=== PATIENT | male | born 1965 | race Caucasian/White ===

== ENCOUNTER 2019-04-29 07:43 | Observation (INO) | payer MEDICAID, SELFPAY ==
[2019-04-29] VITALS (10 sets, daily range): BP systolic 108–143; BP diastolic 73–90; PULSE 49–89; RESP 12–18; TEMP 37.1–37.7; O2SAT 99–100; BMI 22.2
--- NOTE | ~2019-04-29 | XR_ITS ---
XR chest 2V DATE: 04/29/2019 08:20 INDICATION: Fever, malaise TECHNIQUE: 2 views COMPARISON: 02/25/2018 two-view chest FINDINGS: Normal heart size. No hilar or mediastinal enlargement. Mild bilateral hyperinflation. No pulmonary infiltrate or consolidation, pleural effusion or pulmonar y vascular congestion or pneumothorax. Mild levoscoliosis and degenerative spurring of the thoracic spine. Mild degenerative spurring at the acromioclavicular joints. IMPRESSION: No active cardiopulmonary disease or significant change since 02/25/2018 Reviewed, dictated and finalized at location B. MATIC COIN MACHINE MECHANIC IMPRESSION: No active cardiopulmonary disease or significant change since 2017
--- NOTE | 2019-04-29 07:42 | ECG_ITS ---
Measurements Intervals [place] Rate: 76 P: 69 MO: 163 QRS: 72 QRSD: 100 T: 69 QT: 378 QTc: 426 Interpretive Statements SINUS RHYTHM NORMAL ECG Electronically Signed On 04-29-2019 11:09:56 HORTICULTURALIST by Felipe Newell D.O.
--- NOTE | 2019-04-29 08:10 | ED.CHESTPAIN ---
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 Pt states that his CP was non-radiating and it was alleviated when he held his chest and took deep breaths for 5-6 minutes. He states that he thought it was acid reflux but it did not feel, and then he started having anxiety about his pain. Pt denies SOB. Pt was given a Nitro patch and ASA 325mg, by EMS that also alleviated his pain. He has a H/o a CVA in 2006 and he smokes 1/2PPD. complaint: chest pain Onset (ago): day(s) (this morning) Timing of current episode: now resolved Onset: during exertion Pain location: other (mid chest) Relieving factors: nitroglycerin and other (ASA) Treatment prior to arrival: aspirin and nitroglycerin Related Data Home Medications Medication Instructions Recorded Confirmed No Home Medications 03/28/19 03/28/19 Allergies Allergy/AdvReac Type Severity Reaction Status Date / Time steroids AdvReac Intermediate Sweating Uncoded 04/29/19 07:47 Review of Systems Review of Systems: All systems reviewed & are unremarkable except as noted in HPI and below Cardiovascular: Cardiovascular: Reports chest pain Respiratory: Respiratory: Denies dyspnea Psychiatric: Psychiatric: Reports anxiety [facility] Past Medical History Medical History (Updated 04/29/19 @ 09:57 by Andrew Cornejo DO) Arthritis CVA (cerebral vascular accident) Surgical History Surgical History (Updated 03/28/19 @ 17:55 by Hannah Joshi PA-C) History of tonsillectomy Social History Social History (Updated 04/29/19 @ 09:17 by Nathen Melo) Smoking packs per day: 0.5 Smoking cigarettes per day: 10.0 Smoking status: Current every day smoker Exam Narrative: Exam Narrative: APPEARANCE: No acute distress, nontoxic, resting in bed EYES: EOMI HEENT: Normocephalic, atraumatic, OMM RESPIRATORY: No respiratory distress Clear to auscultation bilaterally with no rhonchi wheezing or rales. CARDIOVASCULAR: Regular rate and rhythm without murmurs rubs or gallops. ABDOMINAL: Soft, nontender, nondistended, no rebound or guarding MUSCULOSKELETAl: Moves all extremities. No clubbing, cyanosis or edema. NEURO: Awake and alert. Following commands, speech normal, no focal deficits SKIN:: Warm, dry. No rashes lesions or abrasions PSYCHIATRIC: Normal affect/mood, Course Course Emergency Course: Discussed with patient and family results of workup and diagnosis. Discussed need for admission. Patient and family understand and agree to current treatment plan Consultations Consultation #1: Discussed case with Dr. Brunner, the wireless telegrapher. Accepted admission to the [facility]. Date: 04/29/19 Time: 09:00 Vital Signs Vital signs: Vital Signs Temperature 98.7 F 04/29/19 07:42 Pulse Rate 75 04/29/19 07:42 Respiratory Rate 16 04/29/19 07:42 Blood Pressure 113/86 04/29/19 07:42 Pulse Oximetry 100 04/29/19 07:42 Temperature 98.7 F 04/29/19 07:42 Pulse Rate 66 04/29/19 09:30 Respiratory Rate 18 04/29/19 09:30 Blood Pressure 114/86 04/29/19 09:30 Pulse Oximetry 99 04/29/19 09:30 MDM - Chest Pain Lab Data Result diagrams: 04/29/19 08:00 04/29/19 08:00 Labs: Lab Results 04/29/19 04/29/19 04/29/19 Range/Units 08:00 08:00 08:00 WBC 4.8 (4.5-10.0) K/mm3 RBC 4.32 L (4.6-6.20) M/mm3 Hgb 13.6 L (14.0-18.0) g/dL Hct 40.9 L (42.0-52.0) % MCV 94.7 (80-100) fl MCH 31.5 (26-34) pg MCHC 33.3 (32-36) g/dl RDW 13.1 (11.5-14.5) % Plt Count 189 (150-375) k/mm3 MPV 9.5 (7.4-10.4) fl Immature Gran % (Auto) 0.2 (0-0.5) % Neut % (Auto) 59.3 (45.5-73.1) % Lymph
[2019-04-29 08:14] LABS: Basophils Percent Auto 0.4 % (0.2-1.2); Eosinophils Absolute Auto 0.1 K/mm3 (0-0.3); Eosinophils Percent Auto 1.9 % (0-4.4); Hematocrit 40.9 % (42.0-52.0); Hemoglobin 13.6 g/dL (14.0-18.0); Immature Granulocyte Absolute 0.01 K/mm3 (0.00-0.031); Immature Granulocyte Percent A 0.2 % (0-0.5); Lymphocytes Absolute Auto 1.47 K/mm3 (0.9-3.2); Lymphocytes Percent Auto 30.5 % (18.3-44.2); Mean Corpuscular HGB Conc 33.3 g/dl (32-36); Mean Corpuscular Hemoglobin 31.5 pg (26-34); Mean Corpuscular Volume 94.7 fl (80-100); Mean Platelet Volume 9.5 fl (7.4-10.4); Monocytes Absolute Auto 0.4 K/mm3 (0.1-0.6); Monocytes Percent Auto 7.7 % (2.6-8.5); Neutrophils Absolute Auto 2.9 K/mm3 (1.3-6.7); Neutrophils Percent Auto 59.3 % (45.5-73.1); Platelet Count Result 189 k/mm3 (150-375); Red Blood Count 4.32 M/mm3 (4.6-6.20); Red Cell Distribution Width 13.1 % (11.5-14.5); White Blood Count 4.8 K/mm3 (4.5-10.0)
[2019-04-29 08:20] LABS: INR 0.9
[2019-04-29 08:21] LABS: Partial Thromboplastin Time 27.8 SECONDS (22.3-36.8)
[2019-04-29 08:27] LABS: Alanine Aminotransferase 10 U/L (4-50); Albumin Level 3.9 g/dL (3.5-5.1); Alkaline Phosphatase 56 U/L (38-126); Aspartate Amino Transferase 16 U/L (17-59); Bilirubin,Total 0.1 mg/dL (0.2-1.3); Blood Urea Nitrogen 15 mg/dL (9-20); Calcium 9.1 mg/dL (8.4-10.2); Carbon Dioxide 26 mmol/L (22-30); Chloride 103 mmol/L (98-107); Estimated CRCL calculation 84 ml/min; Estimated Glomerular Filt Rate > 60; Glucose 100 mg/dL (75-110); Lipase 102 U/L (23-300); Potassium 4.1 mmol/L (3.4-5.0); Sodium 140 mmol/L (137-145)
[2019-04-29 08:38] LABS: Troponin I < 0.012 ng/mL (0.000-0.034)
[2019-04-29 11:38] LABS: Cholesterol 142 mg/dL (0-200); HDL Direct 44 mg/dL; Triglycerides 100 mg/dL (<150)
[2019-04-29 11:49] LABS: LDL Cholesterol Direct 97 mg/dL
[2019-04-29 11:50] LABS: Troponin I < 0.012 ng/mL (0.000-0.034)
--- NOTE | 2019-04-29 12:02 | ECG_ITS ---
Measurements Intervals [place] Rate: 49 P: 61 [place]: 164 QRS: 64 QRSD: 98 T: 63 QT: 435 QTc: 396 Interpretive Statements SINUS BRADYCARDIA ABNORMAL ECG Electronically Signed On 04-29-2019 11:54:41 PLATEN DRIER OPERATOR by Felipe Newell D.O.
--- NOTE | 2019-04-29 12:23 | PC.NURSE ---
DR. CHILDERS HERE TO SEE PT. CONDITION UPDATE GIVEN. NOTIFIED TROPONINS (-) X 2 AND EKG'S SHOWN.
--- NOTE | 2019-04-29 12:49 | PM.SD ---
Same Day Admit/Disch: HPI History of Present Illness Chief complaint: Chest pain Narrative: Juan Young is a 53 year old male with past medical history of GERD who presented today to [facility] with complaint for episodes of chest discomfort and anxiety. According the patient he worked today morning and then experienced one episode of sharp chest discomfort in 1 spot on his chest on the left side. Stated that he panicked and called EMS to go to the hospital. Stated that his pain was present for few minutes and resolved spontaneously. Patient claims that he never had similar symptoms before. Patient stated she was diagnosed with GERD before and takes some proton pump inhibitor for that reason. Pt denies any cardiac problems. States that in 2006 had stroke and which affected his speech. At that time he was polysubstance abuser. He underwent evaluation at [facility] including stress test which per pt was negative. Afterwards patient quit all his drugs and feels better. Patient was seen and examined, chart was reviewed, case was discussed with patient's nurse PMFSH Past Medical History Medical History (Updated 04/29/19 @ 15:50 by Derrek Rivera MD) Arthritis CVA (cerebral vascular accident) Surgical History Surgical History (Updated 03/28/19 @ 17:55 by Hannah Joshi PA-C) History of tonsillectomy Social History Social History (Updated 04/29/19 @ 09:17 by Nathen Melo) Smoking packs per day: 0.5 Smoking cigarettes per day: 10.0 Years smoked: 35 Smoking pack-years: 17.50 Smoking status: Current every day smoker Tobacco type: cigarettes Second hand tobacco smoke exposure: Yes Additional smoking assessment comments: REPORTS SMOKING MARIJUANA DAILY. Gender identity (if verbalized by the patient): Male Same Day Admit/Disch: Med Pre-admit Medications Home Medications Medication Instructions Recorded Confirmed Type No Home Medications 03/28/19 03/28/19 History Exam Const: General: alert and awake; No acute distress HENMT: Head: normal to inspection and atraumatic Ears: hearing grossly normal bilaterally Face and sinus: normal facial exam Eyes: General: appearance normal, both eyes and all related structures Pupils: Equal, round and reactive pupils present EOM: EOMs intact bilaterally Neck: Neck: normal visual inspection and no JVD Chest: Chest palpation & inspection: normal inspection of the chest Resp: Effort & Inspection: normal respiratory effort and no respiratory distress Auscultation: clear to auscultation bilaterally Cardio: Jugular venous distension: no JVD Rate: regular rate Heart sounds: S1 normal heart sound present, S2 normal heart sound present and no murmurs GI: Inspection: normal to inspection GI Palp: Yes Soft to palpation, No Tenderness to palpation present (GI) and Yes No hepatosplenomegaly present Auscultation: normal bowel sounds Skin: General skin exam: normal color Neuro: Cranial nerves: Yes Equal, round and reactive pupils present Extrem: General: normal to inspection and no clubbing, cyanosis or edema DS: Data Data Completed and Pending Labs on day of discharge: Labs from last 24 hours 04/29/19 04/29/19 04/29/19 11:13 11:13 08:00 WBC RBC Hgb Hct MCV MCH MCHC RDW Plt Count MPV Immature Gran % (Auto) Neut % (Auto) Lymph % (Auto) [place] % (Auto) Eos % (Auto) Baso % (Auto) Lymph # (Auto) [place] # (Auto) Eos # (Auto) Baso # (Auto) Abs Immat Gran (auto) Absolute Neuts (auto) Absolute Nucleated RBC Nucleated RBC % PT INR APTT Sodium 140 Potassium 4.1 Chloride 103 Carbon Dioxide 26 BUN 15 Creatinine 0.70 Estim Creat Clear Calc 84 Estimated GFR > 60 Glucose 100 Calcium 9.1 Total Bilirubin 0.1 L Direct Bilirubin 0.0 AST 16 L ALT 10 Alkaline Phosphatase 56 Troponin I < 0.012 < 0.0
--- NOTE | 2019-04-29 12:59 | ECHO_ITS ---
Patient Info Name: Juan Young Age: 53 years : 1965 Gender: Male Ht: 63 in Wt: 125 lbs BSA: 1.59 m2 HR: 50 bpm BP: 129 / 80 mmHg Technical Quality: Good Exam Date: 04/29/2019 1:29 PM Exam Location: [facility] Patient Status: Inpatient Admit Date: 04/29/2019 Staff Ordering Physician: Derrek Rivera MD Breeder Service Technician: Roxana Carreno RDCS Attending Provider: Huber Brunner MD Referring Physician: Nicole MCGUIRE; Exam Type: CA echo doppler color flow Study Info Indications R07.89 - Other chest pain Complete two-dimensional, color flow and Doppler transthoracic echocardiogram is performed. Summary 1. Left ventricular chamber dimension is mildly enlarged. 2. There is mild aortic valve sclerosis. 3. The mitral valve has thickened leaflets. 4. Left ventricular ejection fraction is normal, estimated at 50-55%%. 5. There is trace mitral valve regurgitation. Left Ventricle Left ventricular chamber dimension is mildly enlarged. Left ventricular ejection fraction is normal, estimated at 50-55%%. Right Ventricle Right ventricle Empty are normal. Left Atria Left atrial chamber dimension is normal. Right Atria Right atrial chamber dimension is normal. Aortic Valve The aortic valve is trileaflet. There is mild aortic valve sclerosis. Pulmonic Valve Pulmonary valve is not well visualized. Mitral Valve The mitral valve has thickened leaflets. There is trace mitral valve regurgitation. Tricuspid Valve The tricuspid valve is not well visualized. Pericardium/Pleural Pericardium is normal in appearance with no evidence for significant pericardial effusion. Left Ventricular Outflow Tract Name Value Normal LVOT 2D LVOT Diameter 2.0 cm LVOT Doppler LVOT Peak Gradient 2 mmHg LVOT Mean Gradient 1 mmHg LVOT VTI 17 cm LVOT VTI/AV VTI Ratio 0.8 LVOT Stroke Volume 57 ml LVOT CO 3.1 l/min LVOT CI 1.9 l/min/m2 Pulmonic Valve Name Value Normal RVOT Doppler RVOT Peak Gradient 1 mmHg PV Doppler PV Peak Gradient 2 mmHg Mitral Valve Name Value Normal MV Doppler MV Decel [place] 401 cm/s2 MV PHT 55 ms MV Area (PHT) 4.0 cm2 4.0-5.0 MV Diastolic Function -
--- NOTE | 2019-04-29 13:35 | PC.NURSE ---
ECHO IN PROGRESS AT BEDSIDE. PT. HAD REFUSED STRESS ECHO; ORDER FOR ECHO PER DR. CHILDERS INSTEAD.
--- NOTE | 2019-04-29 15:02 | ECG_ITS ---
Measurements Intervals [place] Rate: 52 P: 67 [place]: 168 QRS: 65 QRSD: 100 T: 63 QT: 425 QTc: 395 Interpretive Statements SINUS BRADYCARDIA WITH SINUS ARRHYTHMIA BORDERLINE ECG Electronically Signed On 04-29-2019 15:17:44 SENIOR QUALITY CONTROL INSPECTOR by Felipe Newell D.O.
[2019-04-29 15:43] LABS: Troponin I < 0.012 ng/mL (0.000-0.034)
--- NOTE | 2019-04-29 15:45 | PC.NURSE ---
CALL RECEIVED FROM DR. CHILDERS. STATES HE HAS REVIEWED ECHO AND HAS BEEN NOTIFIED OF 3RD TROPONIN RESULT. OK TO DISCHARGE PT. HOME.
--- NOTE | 2019-04-29 16:50 | PC.NURSE ---
DISCHARGE INSTRUCTIONS REVIEWED W/ PT. ALL QUESTIONS ANSWERED. COPY GIVEN. DISCHARGED HOME, OUT AMBULATORY W/ AT SIDE TO PRIVATE CAR WITH ALL PERSONAL BELONGINGS AND DISCHARGE INSTRUCTIONS. DENIES PAIN OR SOB.
--- NOTE | 2019-04-29 19:22 | ADMGEN ---
0950: This patient, Juan Young, was admitted to [facility]. Patient/family oriented to hospital policies and general routines including ID bracelet, bed and alarms, visiting hours, pain management, procedures, bathroom and other care routines, personal items, smoking policy, room service/diet, and visiting hours. Valuables list has been completed. DENIES CP OR SOB ON ARRIVAL. Information on how to activate the Rapid Response Team has been discussed. Patient/Family are encouraged to report perceived risks to care and to ask questions if they do not understand what they are told or what they should do.
== END 2019-04-29 16:50 | disposition home or self-care (01) ==
LOC: ANHED 09:08 → ANHCPC 09:57
PROVIDERS: Admitting Provider Specialist; Emergency Provider Emergency Medicine; Visit Provider Internal Medicine Cardiovascular Disease
DX: R07.89 Other chest pain (principal); K21.9 Gastro-esophageal reflux disease without esophagitis; F17.210 Nicotine dependence, cigarettes, uncomplicated; M19.90 Unspecified osteoarthritis, unspecified site; Z86.73 Personal history of transient ischemic attack (TIA), and cerebral infarction without residual deficits
CPT/HCPCS: 36415; 71046; 80048; 80061; 80076; 83690; 84484; 85025; 85610; 85730; 93005; 93306; 99285; G0378; G0379

== ENCOUNTER 2019-08-24 12:35 | Emergency (ER) | payer OTHER, SELFPAY ==
--- NOTE | ~2019-08-24 | CT_ITS ---
EXAMINATION: CT lumbar spine wo con DATE: 08/24/2019 14:24 INDICATION: Low back pain. Bilateral sciatica. TECHNIQUE: Computed tomography (CT) of the lumbar spine was performed without intravenous contrast. A utomated exposure control and iterative reconstruction technique were employed. The dose-length produ ct was 218.21 mGy-cm. COMPARISON: None FINDINGS: There is 5 degrees dextrocurvature of thoracolumbar spine. Vertebral body heights are jessica l. There is mildly decreased disc height at L4-L5. The following disc levels are specifically discuss ed: L1-L2: The disc does not extend beyond the endplate margin. There is mild bilateral facet joint osteo arthritis. There is no neural foraminal stenosis. There is no central canal stenosis. L2-L3: The disc does not extend beyond the endplate margin. There is moderate bilateral facet joint o steoarthritis. There is no neural foraminal stenosis. There is no central canal stenosis. L3-L4: The disc does not extend beyond the endplate margin. There is severe right and mild left facet joint osteoarthritis. There is no neural foraminal stenosis. There is no central canal stenosis. L4-L5: The disc is bulging. There is mild right and severe left facet joint osteoarthritis. There is mild bilateral neural foraminal stenosis. There is mild central canal stenosis. L5-S1: The disc is bulging. There is severe bilateral facet joint osteoarthritis. There is mild bilat eral neural foraminal stenosis. There is mild central canal stenosis. IMPRESSION: 1. Mild lumbar spondylosis. Reviewed, dictated and finalized at location A. IMPRESSION: 1. Mild lumbar spondylosis.
[2019-08-24 12:47] VITALS: BP 146/94; PULSE 109; RESP 18; TEMP 37; O2SAT 99
--- NOTE | 2019-08-24 14:10 | ED.BACK ---
HPI - Back Pain/Injury General Chief Complaint: Back Pain/Injury Stated Complaint: chronic back pain Time Seen by Provider: 08/24/19 13:22 History of Present Illness HPI Narrative: Patient took off work to come in to see what we could do about his back pain. 4 years ago with surgery he had a fall and had acute back pain at that time. She has had sciatica since. 4 weeks ago he had acute on chronic pain after doing yard work. He was told he pulled a muscle. An x-ray was done at [facility], and he was told he should get an MRI with a private doctor. He works full-time at [employer] up to 50 hours a week. Pain is worse with standing and sitting. Currently the pain is 6 out of 10. He has no urinary or bowel problems. The only pain medicine he tried was in ibuprofen 600 mg which improved the pain. He was told not to take ibuprofen because of a stomach scar. He has been trying to find a primary care physician, in this area, but he says they are all decline, because her not taking new patients due to COVID. He only goes to urgent cares at the ER. He now has Medicaid health insurance. He smokes a pack a day, and marijuana. He no longer drinks because it caused problems in the past. MD elicited complaint: back pain Pertinent past history: prior back pain and recent trauma Onset (ago): year(s) Timing: constant Severity: moderate Similar Symptoms Previously: Yes Location: lumbar spine Radiation: left leg below the knee and right leg below the knee Exacerbating factors: sitting upright Relieving factors: none Associated symptoms: difficulty walking Work related injury: No Related Data Allergies Allergy/AdvReac Type Severity Reaction Status Date / Time steroids AdvReac Intermediate Sweating Uncoded 08/24/19 12:56 Review of Systems Review of Systems: Narrative: CONSTITUTIONAL: Denies fever, chills, or sweats. EYES: Denies visual changes, redness, or discharge. ENT: Denies rhinorrhea, congestion, sore throat, or otalgia. CARDIOVASCULAR: Denies chest pain, palpitations, or edema. RESPIRATORY: Denies cough or dyspnea. GASTROINTESTINAL: Denies abdominal pain, nausea, vomiting, or diarrhea. GENITOURINARY: Denies dysuria or hematuria. SKIN: Denies rash or itching. MUSCULOSKELETAL: Denies joint pain, or myalgia. NEUROLOGIC: Denies headache, numbness, or weakness. PSYCHIATRIC: Denies anxiety or depression. All systems reviewed & are unremarkable except as noted in HPI and below PMFSH Past Medical History Medical History (Updated 08/24/19 @ 14:16 by Megha Tom MD) Arthritis CVA (cerebral vascular accident) Surgical History Surgical History History of tonsillectomy Social History Social History (Updated 08/24/19 @ 14:14 by Megha Tom MD) Smoking packs per day: 0.5 Smoking cigarettes per day: 10.0 Years smoked: 35 Smoking pack-years: 17.50 Smoking status: Current every day smoker Tobacco type: cigarettes Second hand tobacco smoke exposure: Yes Additional smoking assessment comments: REPORTS SMOKING MARIJUANA DAILY. Alcohol intake: former Substance use: current Substance use type: marijuana Gender identity (if verbalized by the patient): Male Exam Narrative: Exam Narrative: GENERAL: Well-appearing, well-nourished, and in no acute distress. Sitting, tanned, a lot of facial wrinkles. HEAD: Normocephalic, atraumatic. EYES: PERRLA and EOMI. ENT: Nares clear, no rhinorrhea or epistaxis. Mucous membranes moist. NECK: Supple. CHEST: Clear to auscultation. No respiratory distress. HEART: Regular rate and rhythm. No murmur heard. Normal peripheral pulses. ABDOMEN: Soft, nontender, nondistended, normal active bowel sounds. EXTREMITIES: Normal range of motion. No edema. SKIN: Warm, dry, no rash. NEURO: No focal deficits. Alert and oriented x3. PSYCH: Normal mood and affect. Course Reevaluation(s) Reevaluation #1: The social media community manager here in t
[2019-08-24] MEDS: TRAMADOL HCL 50 MG TABLET PO (14:38)
[2019-08-24 15:03] VITALS: BP 126/77; PULSE 72; RESP 16; O2SAT 100
[2019-08-24 15:45] LABS: Basophils Percent Auto 0.7 % (0.2-1.2); Eosinophils Absolute Auto 0.1 K/mm3 (0-0.3); Eosinophils Percent Auto 1.3 % (0-4.4); Hematocrit 44.7 % (42.0-52.0); Immature Granulocyte Absolute 0.01 K/mm3 (0.00-0.031); Immature Granulocyte Percent A 0.2 % (0-0.5); Lymphocytes Absolute Auto 1.56 K/mm3 (0.9-3.2); Lymphocytes Percent Auto 29.2 % (18.3-44.2); Mean Corpuscular HGB Conc 33.6 g/dl (32-36); Mean Corpuscular Hemoglobin 31.7 pg (26-34); Mean Corpuscular Volume 94.5 fl (80-100); Mean Platelet Volume 9.1 fl (7.4-10.4); Monocytes Absolute Auto 0.4 K/mm3 (0.1-0.6); Monocytes Percent Auto 6.6 % (2.6-8.5); Neutrophils Absolute Auto 3.3 K/mm3 (1.3-6.7); Platelet Count Result 208 k/mm3 (150-375); Red Blood Count 4.73 M/mm3 (4.6-6.20); Red Cell Distribution Width 13.2 % (11.5-14.5); White Blood Count 5.3 K/mm3 (4.5-10.0)
[2019-08-24 16:00] LABS: Alanine Aminotransferase 13 U/L (4-50); Albumin Level 4.4 g/dL (3.5-5.1); Alkaline Phosphatase 52 U/L (38-126); Aspartate Amino Transferase 20 U/L (17-59); Bilirubin,Total 0.6 mg/dL (0.2-1.3); Blood Urea Nitrogen 18 mg/dL (9-20); Calcium 9.1 mg/dL (8.4-10.2); Carbon Dioxide 31 mmol/L (22-30); Chloride 107 mmol/L (98-107); Estimated CRCL calculation 79 ml/min; Estimated Glomerular Filt Rate > 60; Glucose 95 mg/dL (75-110); Potassium 4.3 mmol/L (3.4-5.0); Sodium 139 mmol/L (137-145)
== END 2019-08-24 17:41 | disposition home or self-care (01) ==
PROVIDERS: Emergency Provider Emergency Medicine
DX: M54.41 Lumbago with sciatica, right side (principal); M54.42 Lumbago with sciatica, left side; R07.89 Other chest pain; M19.90 Unspecified osteoarthritis, unspecified site; F17.210 Nicotine dependence, cigarettes, uncomplicated; M47.816 Spondylosis without myelopathy or radiculopathy, lumbar region; Z86.73 Personal history of transient ischemic attack (TIA), and cerebral infarction without residual deficits
CPT/HCPCS: 36415; 72131; 80053; 85025; 99284; A9270

== ENCOUNTER 2019-11-09 14:05 | Emergency (ER) | payer OTHER, SELFPAY ==
[2019-11-09 14:18] VITALS: BP 126/82; PULSE 91; RESP 18; TEMP 36.1; O2SAT 100
--- NOTE | 2019-11-09 14:33 | ED.EXTPRO ---
HPI - Extremity Problem General Chief complaint: Skin/Abscess/Foreign Body Stated complaint: Back Pain Time Seen by Provider: 11/09/19 14:21 Source: patient and RN notes reviewed Mode of arrival: ambulatory Limitations: no limitations History of Present Illness HPI Narrative: Patient presents today complaining of painful calluses to the bottom of both feet. This is a chronic issue for patient. States he is on his feet frequently when he works at [employer] and states he wanted to come in to see if we could give him suggestions on foot care. He has been soaking his feet a few times a week. Symptoms are not improving. States he knows he has amount of chronic issues with his feet including overgrown toenails and toe fungus. MD Complaint: extremity pain Related Data Home Medications Medication Instructions Recorded Confirmed quetiapine 11/09/19 Allergies Allergy/AdvReac Type Severity Reaction Status Date / Time steroids AdvReac Intermediate Sweating Uncoded 08/24/19 12:56 Review of Systems Review of Systems: Narrative: CONSTITUTIONAL: Denies body aches, fever, chills, or sweats. EYES: Denies visual changes, redness, or discharge. ENT: Denies rhinorrhea, congestion, sore throat, or otalgia. CARDIOVASCULAR: Denies chest pain, palpitations, or edema. RESPIRATORY: Denies cough or dyspnea. GASTROINTESTINAL: Denies abdominal pain, nausea, vomiting, or diarrhea. GENITOURINARY: Denies dysuria or hematuria. SKIN: Denies rash, itching, or wounds. +Painful calluses MUSCULOSKELETAL: Denies back pain, joint pain, or myalgia. NEUROLOGIC: Denies headache, numbness, tingling, or weakness. PSYCH: Denies depression or anxiety. [facility] Past Medical History Medical History (Updated 11/09/19 @ 14:40 by Maria T Lamas, [facility], ) Arthritis Bipolar disorder CVA (cerebral vascular accident) Schizophrenia Surgical History Surgical History History of tonsillectomy Social History Social History (Updated 08/24/19 @ 14:14 by Megha Tom MD) Smoking packs per day: 0.5 Smoking cigarettes per day: 10.0 Years smoked: 35 Smoking pack-years: 17.50 Smoking status: Current every day smoker Tobacco type: cigarettes Second hand tobacco smoke exposure: Yes Additional smoking assessment comments: REPORTS SMOKING MARIJUANA DAILY. Alcohol intake: former Substance use: current Substance use type: marijuana Gender identity (if verbalized by the patient): Male Comments At time of signature, I have reviewed and agree with nursing past medical, surgical, social and family history unless otherwise noted. Please see nursing chart for further information. There is no relevant family history pertinent to the presenting complaint Exam Narrative: Exam Narrative: GENERAL: Well-appearing, well-nourished, and in no acute distress. HEAD: Normocephalic, atraumatic. EYES: EOMI. No redness or drainage. Conjunctivae normal. ENT: Mucous membranes pink and moist. NECK: Normal AROM. CHEST: No respiratory distress. EXTREMITIES: Widespread, severe onychomycoses in all toes bilaterally. Some toenails are growing underneath the toe after they have folded over the tip. Patient has large firm calluses running on the plantar aspect of each foot at the base of the toes. He also has small, very firm round calluses to the ball of the foot that protrude from the skin. Skin in between the toes is moist and macerated. No obvious cellulitis or erythema noted. SKIN: Warm, dry, no rash. Capillary refill normal. Normal skin turgor. NEURO: No focal deficits. Alert and oriented x3. Gait steady. PSYCH: Normal affect. No signs of depression or anxiety. Course Vital Signs Vital signs: Vital Signs Temperature 97.0 F L 11/09/19 14:18 Pulse Rate 91 11/09/19 14:18 Respiratory Rate 18 11/09/19 14:18 Blood Pressure 126/82 11/09/19 14:18 Pulse Oximetry 100 11/09/19 14:18
== END 2019-11-09 14:40 | disposition home or self-care (01) ==
PROVIDERS: Emergency Provider Nurse Practitioner; PCP Physician Assistant
DX: L84 Corns and callosities (principal); B35.1 Tinea unguium; F17.210 Nicotine dependence, cigarettes, uncomplicated; M19.90 Unspecified osteoarthritis, unspecified site; Z86.73 Personal history of transient ischemic attack (TIA), and cerebral infarction without residual deficits; F31.9 Bipolar disorder, unspecified; F20.9 Schizophrenia, unspecified
CPT/HCPCS: 99211; G0463

== ENCOUNTER 2019-12-08 08:24 | Emergency (ER) | payer OTHER, SELFPAY ==
[2019-12-08 08:25] VITALS: BP 156/100; PULSE 93; RESP 18; TEMP 36.9; O2SAT 100
--- NOTE | 2019-12-08 08:31 | ED.ABDPAIN ---
HPI - Abdominal Pain General Chief Complaint: Abdominal Pain Stated Complaint: NAUSEA History of Present Illness HPI narrative: Sudden onset of periumbilical abdominal pain about 1 hour ago. Associated with feeling warm and nauseated. He has had similar symptoms in the past due to GERD. He usually takes medications for this, but he did not take any medications this morning. No CP, SOB, vomiting, diarrhea. Related Data Home Medications Medication Instructions Recorded Confirmed quetiapine 11/09/19 Allergies Allergy/AdvReac Type Severity Reaction Status Date / Time steroids AdvReac Intermediate Sweating Uncoded 12/08/19 08:31 Review of Systems Review of Systems: All systems reviewed & are unremarkable except as noted in HPI and below Constitutional: Constitutional: Denies chills and Denies fever(s) Cardiovascular: Cardiovascular: Denies chest pain Respiratory: Respiratory: Denies dyspnea Gastrointestinal: Gastrointestinal: Reports abdominal pain, Denies constipation, Denies diarrhea, Reports nausea and Denies vomiting Genitourinary: Genitourinary: Denies hematuria and Denies dysuria Musculoskeletal: Musculoskeletal: Reports back pain Neurologic: Denies confusion and Denies weakness [facility] Past Medical History Medical History Arthritis Bipolar disorder CVA (cerebral vascular accident) Schizophrenia Surgical History Surgical History History of tonsillectomy Social History Social History Smoking packs per day: 0.5 Smoking cigarettes per day: 10.0 Years smoked: 35 Smoking pack-years: 17.50 Smoking status: Current every day smoker Tobacco type: cigarettes Second hand tobacco smoke exposure: Yes Additional smoking assessment comments: REPORTS SMOKING MARIJUANA DAILY. Alcohol intake: former Substance use: current Substance use type: marijuana Gender identity (if verbalized by the patient): Male Exam Const: General: no acute distress and alert Orientation/consciousness: patient oriented x3 HENMT: Head: normal to inspection Chest: Chest palpation & inspection: normal inspection of the chest and no tenderness Resp: Effort & Inspection: normal respiratory effort Auscultation: clear to auscultation bilaterally Cardio: Rate: regular rate Rhythm: regular rhythm GI: Inspection: non-distended GI Palp: Yes Soft to palpation, Yes Tenderness to palpation present (GI) (periumbilical), No Guarding due to palpation present (GI) and No Rebound tenderness present Auscultation: normal bowel sounds Skin: General skin exam: normal color Neuro: General: patient oriented x3, moves all extremities, no focal motor deficits and CN's II-XI intact bilaterally Speech: normal speech Gait exam (Neuro): Normal gait present Extrem: General: normal to inspection Psych: Affect: Anxious affect present Course Vital Signs Vital signs: Vital Signs Temperature 36.9 C 12/08/19 08:25 Pulse Rate 93 12/08/19 08:25 Respiratory Rate 18 12/08/19 08:25 Blood Pressure 156/100 H 12/08/19 08:25 Pulse Oximetry 100 12/08/19 08:25 Temperature 36.9 C 12/08/19 08:25 Pulse Rate 74 12/08/19 10:11 Respiratory Rate 12 12/08/19 10:11 Blood Pressure 123/93 H 12/08/19 10:11 Pulse Oximetry 100 12/08/19 10:11 MDM - Abdominal Pain MDM Narrative Medical decision making narrative: feeling better after GI cocktail Differential Diagnosis Differential diagnosis: Likely gastroenteritis, pancreatitis and other (GERD) Medical Records Attestation: I reviewed the patient's medical records. Lab Data Attestation: I reviewed the patient's lab results. Result diagrams: 12/08/19 08:34 12/08/19 08:34 Labs: Lab Results 12/08/19 12/08/19 Range/Units 08:34 08:34 WBC 5.1 (4.5-10.0) K/mm
[2019-12-08 08:43] VITALS: BP 139/88; PULSE 87; RESP 20; O2SAT 100
[2019-12-08] MEDS: LIDOCAINE HCL 2% VISC SOLN 15 ML UDC 20 ML PO (08:43)
[2019-12-08] MEDS: ONDANSETRON INJ 4 MG/2 ML VIAL IV PUSH (08:43)
[2019-12-08] MEDS: PANTOPRAZOLE SODIUM IV 40 MG VIAL IV PUSH (08:43)
[2019-12-08] MEDS: MAG HYDROX/AL HYDROX/SIMETH 30 ML UDC PO (08:44)
[2019-12-08 08:49] LABS: Basophils Percent Auto 0.6 % (0.2-1.2); Eosinophils Absolute Auto 0.1 K/mm3 (0-0.3); Eosinophils Percent Auto 1.6 % (0-4.4); Hematocrit 40.9 % (42.0-52.0); Hemoglobin 13.8 g/dL (14.0-18.0); Immature Granulocyte Absolute 0.01 K/mm3 (0.00-0.031); Immature Granulocyte Percent A 0.2 % (0-0.5); Lymphocytes Absolute Auto 0.73 K/mm3 (0.9-3.2); Lymphocytes Percent Auto 14.3 % (18.3-44.2); Mean Corpuscular HGB Conc 33.7 g/dl (32-36); Mean Corpuscular Hemoglobin 32.1 pg (26-34); Mean Corpuscular Volume 95.1 fl (80-100); Mean Platelet Volume 9.3 fl (7.4-10.4); Monocytes Absolute Auto 0.7 K/mm3 (0.1-0.6); Monocytes Percent Auto 14.3 % (2.6-8.5); Neutrophils Absolute Auto 3.5 K/mm3 (1.3-6.7); Platelet Count Result 186 k/mm3 (150-375); Red Cell Distribution Width 13.4 % (11.5-14.5); White Blood Count 5.1 K/mm3 (4.5-10.0)
[2019-12-08 08:55] LABS: Alanine Aminotransferase 13 U/L (4-50); Albumin Level 4.1 g/dL (3.5-5.1); Alkaline Phosphatase 55 U/L (38-126); Anion Gap 3 mmol/L (8-16); Aspartate Amino Transferase 22 U/L (17-59); Bilirubin,Total 0.3 mg/dL (0.2-1.3); Blood Urea Nitrogen 16 mg/dL (9-20); Calcium 8.9 mg/dL (8.4-10.2); Carbon Dioxide 27 mmol/L (22-30); Chloride 106 mmol/L (98-107); Estimated CRCL calculation 78 ml/min; Estimated Glomerular Filt Rate > 60; Glucose 99 mg/dL (75-110); Lipase 134 U/L (23-300); Potassium 3.9 mmol/L (3.4-5.0); Sodium 136 mmol/L (137-145)
--- NOTE | 2019-12-08 09:18 | PC.NURSE ---
pt denies any pain at this time. all results back. waiting further orders.
[2019-12-08 10:11] VITALS: BP 123/93; PULSE 74; RESP 12; O2SAT 100
== END 2019-12-08 10:16 | disposition home or self-care (01) ==
PROVIDERS: Emergency Provider Emergency Medicine; PCP Physician Assistant
DX: R10.33 Periumbilical pain (principal); F17.210 Nicotine dependence, cigarettes, uncomplicated; M19.90 Unspecified osteoarthritis, unspecified site; F31.9 Bipolar disorder, unspecified; F20.9 Schizophrenia, unspecified; Z86.73 Personal history of transient ischemic attack (TIA), and cerebral infarction without residual deficits
CPT/HCPCS: 36415; 80053; 83690; 85025; 96374; 96375; 99284; A9270; C9113; J2405

== ENCOUNTER 2019-12-26 19:36 | Emergency (ER) | payer OTHER, SELFPAY ==
--- NOTE | ~2019-12-26 | XR_ITS ---
EXAMINATION: XR tibia fibula LT 2V INDICATION: Left lower limb pain TECHNIQUE: Two views of the left lower limb are obtained on three radiographs. COMPARISON: None available FINDINGS: There is no fracture, dislocation, or subluxation. There is mild dorsal soft tissue swellin g of the lower limb. No underlying osseous abnormality is identified. The joint spaces are unremarkab le. No radiopaque foreign body is identified. IMPRESSION: 1. Soft tissue swelling without acute osseous abnormality. Reviewed, dictated and finalized at location A.
[2019-12-26 19:55] VITALS: BP 127/76; PULSE 98; RESP 18; TEMP 36.9; O2SAT 100
[2019-12-26 20:54] VITALS: BP 140/77; PULSE 77; RESP 20; O2SAT 97
--- NOTE | 2019-12-26 21:12 | ED.ANIMALBIT ---
HPI - Animal Bite General Chief Complaint: Animal Bite Stated Complaint: bit by dog Time Seen by Provider: 12/26/19 20:52 Source: patient Mode of arrival: ambulatory Limitations: no limitations History of Present Illness HPI narrative: This is a 54 year old male that presents to the ER for dog bite to the left leg sustained just prior to arrival. Reports he was breaking up his dog fighting with a neighbor dog. Reports he sustained a bite to the left lower leg. Reports the dog was up to date on vaccines. Reports he is also up to date on tetanus. Denies fever, erythema, or decreased ROM. Related Data Home Medications Medication Instructions Recorded Confirmed quetiapine 11/09/19 Allergies Allergy/AdvReac Type Severity Reaction Status Date / Time steroids AdvReac Intermediate Sweating Uncoded 12/26/19 20:56 Review of Systems Review of Systems: Narrative: CONSTITUTIONAL: Denies fever SKIN: Reports dog bite MUSCULOSKELETAL: Denies joint pain, or myalgia. NEUROLOGIC: Denies numbness All systems reviewed & are unremarkable except as noted in HPI and below PMFSH Social History Social History Smoking packs per day: 0.5 Smoking cigarettes per day: 10.0 Years smoked: 35 Smoking pack-years: 17.50 Smoking status: Current every day smoker Tobacco type: cigarettes Second hand tobacco smoke exposure: Yes Additional smoking assessment comments: REPORTS SMOKING MARIJUANA DAILY. Alcohol intake: former Substance use: current Substance use type: marijuana Gender identity (if verbalized by the patient): Male Exam Narrative: Exam Narrative: GENERAL: Well-appearing, well-nourished, and in no acute distress. HEAD: Normocephalic, atraumatic. EYES: EOMI. EXTREMITIES: Normal range of motion. No edema. Left lower leg with multiple superficial abrasions and small puncture wounds. No surrounding edema or erythema SKIN: Warm, dry, no rash. NEURO: No focal deficits. Alert and oriented x3. PSYCH: Normal mood and affect Course Vital Signs Vital signs: Vital Signs Temperature 98.5 F 12/26/19 19:55 Pulse Rate 98 12/26/19 19:55 Respiratory Rate 18 12/26/19 19:55 Blood Pressure 127/76 12/26/19 19:55 Pulse Oximetry 100 12/26/19 19:55 Temperature 98.5 F 12/26/19 19:55 Pulse Rate 77 12/26/19 20:54 Respiratory Rate 20 12/26/19 20:54 Blood Pressure 140/77 12/26/19 20:54 Pulse Oximetry 97 12/26/19 20:54 Procedures Laceration Laceration 1: Date: 12/26/19 Time: 22:29 Site: lower extremity Side (If applicable): left Pre-repair: irrigated extensively ====== Skin Level ====== ====== Subcutaneous Layer ====== ====== Muscle Layer ====== ====== Tendon Layer ====== Dressing: Patient's wound irrigated and bandaged with antibiotic ointment, Telfa, Kerlix, and Coban MDM - Animal Bite MDM Narrative Medical decision making narrative: Patient presents the emergency department for dog bite to the left leg sustained just prior to arrival. He is up-to-date on tetanus. Reports the dog was up-to-date on vaccines as well. Left tib-fib x-ray shows soft tissue swelling, no acute osseous abnormality. Patient's wound was irrigated and covered with antibiotic ointment and a bandage. Patient will be sent home on oral antibiotics. He was educated on wound care. He is to follow-up with primary care doctor. He was given warnings to return to the ER Imaging Data Radiologist's impression: ITS Impressions Tibia/Fibula X-Ray 12/26/19 21:32 IMPRESSION: 1. Soft tissue swelling without acute osseous abnormality. Critical Care Time Critical Care Time Critical Care Time: No Discharge Plan Discharge Clinical Impression: Dog bite of left lower leg Qualifiers: Encounter type: initial encounter Qualified Code(s): S81.852A - Open bite, left lower leg, initial encou
[2019-12-26] MEDS: AMOXICILLIN/CLAVULANATE K 875-125 MG TAB 1 TABLET PO (21:21)
[2019-12-26 22:45] VITALS: BP 133/78; PULSE 88; RESP 17; O2SAT 99
== END 2019-12-26 22:45 | disposition home or self-care (01) ==
PROVIDERS: Emergency Provider Emergency Medicine; PCP Physician Assistant
DX: S81.852A Open bite, left lower leg, initial encounter (principal); W54.0XXA Bitten by dog, initial encounter; F17.210 Nicotine dependence, cigarettes, uncomplicated
CPT/HCPCS: 73590; 99283; A9270

== ENCOUNTER 2020-02-17 14:44 | Emergency (ER) | payer OTHER, SELFPAY ==
--- NOTE | 2020-02-17 15:54 | ED.BACK ---
HPI - Back Pain/Injury General Chief Complaint: Back Pain/Injury Stated Complaint: back pain Time Seen by Provider: 02/17/20 15:03 History of Present Illness HPI Narrative: Patient is a 54-year-old male who presents ER with back pain. Reports its been ongoing for months. Reports he woke up and pain was increased today. Its in his low back bilaterally in the SI region. It will radiate down each leg intermittently. No numbness or tingling. No acute trauma. Patient is just wanting to find a surgeon who can evaluate his back more. He sees pain management and also has primary care physician. Related Data Home Medications Medication Instructions Recorded Confirmed quetiapine 11/09/19 Allergies Allergy/AdvReac Type Severity Reaction Status Date / Time steroids AdvReac Intermediate Sweating Uncoded 02/17/20 15:18 Review of Systems Constitutional: Constitutional: Denies chills, Denies fever(s) and Denies weakness Musculoskeletal: Musculoskeletal: Reports back pain and Denies muscle cramps Neurologic: Denies focal weakness and Denies numbness PMFSH Past Medical History Medical History (Updated 02/17/20 @ 15:56 by Micah Savage MD) Arthritis Bipolar disorder CVA (cerebral vascular accident) Schizophrenia Surgical History Surgical History History of tonsillectomy Social History Social History Smoking packs per day: 0.5 Smoking cigarettes per day: 10.0 Years smoked: 35 Smoking pack-years: 17.50 Smoking status: Current every day smoker Tobacco type: cigarettes Second hand tobacco smoke exposure: Yes Additional smoking assessment comments: REPORTS SMOKING MARIJUANA DAILY. Alcohol intake: former Substance use: current Substance use type: marijuana Gender identity (if verbalized by the patient): Male Exam Narrative: Exam Narrative: GENERAL: Well-appearing, well-nourished, and in no acute distress. HEAD: Normocephalic, atraumatic. EXTREMITIES: Normal range of motion. Normal strength with ambulation. Back: No midline tenderness of the thoracic or lumbar spine. There is bilateral SI region tenderness. NEURO: Alert and oriented x3. PSYCH: Normal mood and affect. Course Course Emergency Course: Discharge home with Medrol Dosepak. Patient requests work note. Discharge Plan Discharge Clinical Impression: Sciatica Patient Disposition: Home, Self-Care Condition: Stable Instructions: Sciatica (ED), Lower Back Exercises (ED) Additional Instructions: Return to the ER if you have increased pain in your back, you develop lower extremity weakness/numbness/paralysis, you have numbness or tingling in your private parts, or you are unable to control your ability to urinate/stool. Prescriptions: New methylprednisolone [Medrol (Les)] 4 mg tablets,dose pack See Rx Instructions .ROUTE .COMPLEX Qty: 21 RF: 0 No Action quetiapine 50 mg tablet RF: 0 aspirin [Children's Aspirin] 81 mg Tablet,Chewable 81 mg PO DAILY@0800 Qty: 100 RF: 0 Follow-up/Referrals: Alber,JASON Dominguez [Primary Care Provider] - Hay May MD [Physician] - 1 Month Stand Alone Forms: Work/School Release IP
== END 2020-02-17 16:09 | disposition home or self-care (01) ==
PROVIDERS: Emergency Provider Emergency Medicine; PCP Physician Assistant
DX: M54.42 Lumbago with sciatica, left side (principal); M54.41 Lumbago with sciatica, right side; M19.90 Unspecified osteoarthritis, unspecified site; F31.9 Bipolar disorder, unspecified; F20.9 Schizophrenia, unspecified; Z86.73 Personal history of transient ischemic attack (TIA), and cerebral infarction without residual deficits; F17.210 Nicotine dependence, cigarettes, uncomplicated
CPT/HCPCS: 99283

== ENCOUNTER 2020-03-18 10:34 | Emergency (ER) | payer OTHER, SELFPAY ==
[2020-03-18 10:45] VITALS: BP 139/79; PULSE 95; RESP 16; TEMP 36.3; O2SAT 100
--- NOTE | 2020-03-18 11:37 | ED.SKABFB ---
HPI - Skin/Abscess/Foreign Bdy General Chief complaint: Skin/Abscess/Foreign Body Stated complaint: foot pain Time Seen by Provider: 03/18/20 11:25 Source: patient, RN notes reviewed and old records reviewed Mode of arrival: ambulatory Limitations: no limitations History of Present Illness HPI narrative: Patient presents today complaining of painful area to the bottom of his left foot x1 month. States he is waiting on a referral to podiatry. He has been previously told to soak his foot in Epsom salt, but states it is not helping. Review of previous records show he was seen by this provider for same complaint on 11/09/2019. At that time he was diagnosed with a severe callus and instructed to soak his foot daily in warm water and rub the callus with a pumice stone. Patient states he soaks his foot for an hour and a half 3 times a week after work, but states he does not feel like it is helping. He has not been using a pumice stone or file of any kind to shave down the area. States it becomes very painful after he has to stand for long periods of time at work at [email or web address] complaint: other (Painful callus) Related Data Home Medications Medication Instructions Recorded Confirmed quetiapine 50 mg PO BID 11/09/19 03/18/20 Allergies Allergy/AdvReac Type Severity Reaction Status Date / Time steroids AdvReac Intermediate Sweating Uncoded 03/18/20 11:05 Review of Systems Review of Systems: Narrative: CONSTITUTIONAL: Denies body aches, fever, chills, or sweats. EYES: Denies visual changes, redness, or discharge. ENT: Denies rhinorrhea, congestion, sore throat, or otalgia. CARDIOVASCULAR: Denies chest pain, palpitations, or edema. RESPIRATORY: Denies cough or dyspnea. GASTROINTESTINAL: Denies abdominal pain, nausea, vomiting, or diarrhea. GENITOURINARY: Denies dysuria or hematuria. SKIN: Denies rash, itching. + Callus to bottom of left foot MUSCULOSKELETAL: Denies back pain, joint pain, or myalgia. NEUROLOGIC: Denies headache, numbness, tingling, or weakness. PSYCH: Denies depression or anxiety. [facility] Past Medical History Medical History (Updated 03/18/20 @ 11:39 by Maria T Lamas, [facility], ) Arthritis Bipolar disorder CVA (cerebral vascular accident) Schizophrenia Surgical History Surgical History History of tonsillectomy Social History Social History Smoking packs per day: 0.5 Smoking cigarettes per day: 10.0 Years smoked: 35 Smoking pack-years: 17.50 Smoking status: Current every day smoker Tobacco type: cigarettes Second hand tobacco smoke exposure: Yes Additional smoking assessment comments: REPORTS SMOKING MARIJUANA DAILY. Alcohol intake: former Substance use: current Substance use type: marijuana Gender identity (if verbalized by the patient): Male Comments At time of signature, I have reviewed and agree with nursing past medical, surgical, social and family history unless otherwise noted. Please see nursing chart for further information. There is no relevant family history pertinent to the presenting complaint Exam Narrative: Exam Narrative: GENERAL: Well-appearing, well-nourished, and in no acute distress. HEAD: Normocephalic, atraumatic. EYES: EOMI. No redness or drainage. Conjunctivae normal. ENT: Mucous membranes pink and moist. NECK: Normal AROM. CHEST: No respiratory distress. EXTREMITIES: Normal range of motion. No edema. SKIN: Warm, dry, no rash. Capillary refill normal. Normal skin turgor. Quarter sized very thick pointed callus to the plantar aspect of the left foot, at the ball of the foot. This area is tender to palpation. NEURO: No focal deficits. Alert and oriented x3. Gait steady. PSYCH: Normal affect. No signs of depression or anxiety. Course Vital Signs Vital signs: Vital Signs Temperature 97.3 F L 03/18/20 10:45 Pulse Rate 95
== END 2020-03-18 11:42 | disposition home or self-care (01) ==
PROVIDERS: Emergency Provider Nurse Practitioner; PCP Physician Assistant
DX: L84 Corns and callosities (principal); F17.210 Nicotine dependence, cigarettes, uncomplicated; M19.90 Unspecified osteoarthritis, unspecified site; Z86.73 Personal history of transient ischemic attack (TIA), and cerebral infarction without residual deficits; F31.9 Bipolar disorder, unspecified; F20.9 Schizophrenia, unspecified
CPT/HCPCS: 99211; G0463

== ENCOUNTER 2020-04-10 08:45 | Outpatient (CLI) | payer OTHER, SELFPAY | END 2020-04-10 08:46 | disposition home or self-care (01) | LOC: ANHAUDIO 08:47 | PROVIDERS: PCP Physician Assistant; Visit Provider Physician Assistant | DX: H90.3 Sensorineural hearing loss, bilateral (principal) | CPT/HCPCS: 92557; 92567 ==

== ENCOUNTER 2020-05-22 13:35 | Emergency (ER) | payer OTHER, SELFPAY ==
[2020-05-22 13:44] VITALS: BP 127/95; PULSE 83; RESP 17; TEMP 36.1; O2SAT 100
--- NOTE | 2020-05-22 13:48 | ED.EAR ---
HPI - Ear Problem General Chief complaint: Ear Stated complaint: obect in left ear. Time Seen by Provider: 05/22/20 13:41 Source: patient Mode of arrival: ambulatory Limitations: no limitations History of Present Illness HPI Narrative: This is a 54 year old male that presents to the ER for left ear foreign body. Reports he roll up a part of cigarette paper and uses it to clean out his ears. Reports he was going to get a hearing aid today and they saw something in his ear and told him to come to the hospital to get it removed. He is unsure how long this has been there, he thinks maybe a couple of days. Denies fever or discharge. Related Data Home Medications Medication Instructions Recorded Confirmed quetiapine 50 mg PO BID 11/09/19 03/18/20 Allergies Allergy/AdvReac Type Severity Reaction Status Date / Time steroids AdvReac Intermediate Sweating Uncoded 03/18/20 11:05 Review of Systems Review of Systems: Narrative: CONSTITUTIONAL: Denies fever ENT: Denies otalgia. All systems reviewed & are unremarkable except as noted in HPI and below PMFSH Past Medical History Medical History (Updated 05/22/20 @ 13:53 by Hannah Joshi PA-C) Arthritis Bipolar disorder CVA (cerebral vascular accident) Schizophrenia Surgical History Surgical History History of tonsillectomy Social History Social History Smoking packs per day: 0.5 Smoking cigarettes per day: 10.0 Years smoked: 35 Smoking pack-years: 17.50 Smoking status: Current every day smoker Tobacco type: cigarettes Second hand tobacco smoke exposure: Yes Additional smoking assessment comments: REPORTS SMOKING MARIJUANA DAILY. Alcohol intake: former Substance use: current Substance use type: marijuana Gender identity (if verbalized by the patient): Male Exam Narrative: Exam Narrative: GENERAL: Well-appearing, well-nourished, and in no acute distress. HEAD: Normocephalic, atraumatic. EYES: EOMI. ENT: Left external auditory canal with small metallic object present. This was removed, external auditory canal now appears normal and so does the TM EXTREMITIES: Normal range of motion. No edema. SKIN: Warm, dry, no rash. NEURO: No focal deficits. Alert and oriented x3. PSYCH: Normal mood and affect Course Vital Signs Vital signs: Vital Signs Temperature 96.9 F L 05/22/20 13:44 Pulse Rate 83 05/22/20 13:44 Respiratory Rate 17 05/22/20 13:44 Blood Pressure 127/95 H 05/22/20 13:44 Pulse Oximetry 100 05/22/20 13:44 Temperature 96.9 F L 05/22/20 13:44 Pulse Rate 83 05/22/20 13:44 Respiratory Rate 17 05/22/20 13:44 Blood Pressure 127/95 H 05/22/20 13:44 Pulse Oximetry 100 05/22/20 13:44 Procedures FB Removal Ear Foreign Body #1: Foreign Body Removal Date: 05/22/20 Foreign Body Removal Time: 13:51 Location: ear canal (L) Foreign Body Suspected: other (Piece of cigarette paper) TM intact pre-procedure: unable to visualize Foreign Body Removed: yes Foreign Body Removal Technique: curette Tympanic Membrane Intact Post Procedure: Yes Patient Tolerated Procedure: well Complications: none Medical Decision Making MDM Narrative Medical decision making narrative: Patient presents emergency department for foreign body in ear, this was easily removed. After removal external auditory canal and TM appear normal. Patient was instructed to follow-up with his primary doctor as needed Vital Signs Vital Signs: Vital Signs Temperature 96.9 F L 05/22/20 13:44 Pulse Rate 83 05/22/20 13:44 Respiratory Rate 17 05/22/20 13:44 Blood Pressure 127/95 H 05/22/20 13:44 Pulse Oximetry 100 05/22/20 13:44 Temperature 96.9 F L 05/22/20 13:44 Pulse Rate 83 05/22/20 13:44 Respiratory Rate 17 05/22/20 13:44 Blood Pressure 12
[2020-05-22 14:04] VITALS: BP 118/72; PULSE 78; RESP 16; O2SAT 100
== END 2020-05-22 14:04 | disposition home or self-care (01) ==
LOC: ANHED 14:00
PROVIDERS: Emergency Provider Emergency Medicine; PCP Physician Assistant
DX: T16.2XXA Foreign body in left ear, initial encounter (principal); M19.90 Unspecified osteoarthritis, unspecified site; Z86.73 Personal history of transient ischemic attack (TIA), and cerebral infarction without residual deficits; F20.9 Schizophrenia, unspecified; F17.210 Nicotine dependence, cigarettes, uncomplicated
CPT/HCPCS: 69200; 99282

== ENCOUNTER 2020-05-24 15:09 | Emergency (ER) | payer OTHER, SELFPAY ==
--- NOTE | 2020-05-24 15:23 | ED.ABDPAIN ---
HPI - Abdominal Pain General Chief Complaint: Abdominal Pain Stated Complaint: abd pain Time Seen by Provider: 05/24/20 15:35 Source: patient and RN notes reviewed Mode of arrival: ambulatory Limitations: no limitations History of Present Illness HPI narrative: 54-year-old male presents with concern for 3 to 4-day history of epigastric pain. Reports approximately 2 weeks ago he ran out of his medication for GERD, reports he has been on the medication for many years. Reports he could not find the medication at the pharmacy to replace it. He denies nausea, vomiting, diarrhea, constipation. Reports normal daily bowel movements. Denies fever, malaise, body aches, chills, sweats. Denies chest pain, shortness of breath. MD elicited complaint: abdominal pain Related Data Home Medications Medication Instructions Recorded Confirmed aspirin 81 mg PO DAILY 05/24/20 05/24/20 quetiapine 100 mg PO HS 05/24/20 05/24/20 Allergies Allergy/AdvReac Type Severity Reaction Status Date / Time steroids AdvReac Intermediate Sweating Uncoded 05/24/20 15:25 Review of Systems Review of Systems: Narrative: CONSTITUTIONAL: Denies malaise, chills, sweats, or fever. EYES: Denies visual changes, redness, or discharge. ENT: Denies rhinorrhea, congestion, sinus pain, otalgia or sore throat. CARDIOVASCULAR: Denies chest pain, palpitations, or edema. RESPIRATORY: Denies cough or dyspnea. GASTROINTESTINAL: Denies nausea, vomiting, diarrhea, bloody, or mucous stools. Reports epigastric pain GENITOURINARY: Denies dysuria or hematuria. SKIN: Denies rash or itching. MUSCULOSKELETAL: Denies back pain, joint pain, or myalgia. NEUROLOGIC: Denies numbness, weakness, or headache. PSYCHIATRIC: Denies anxiety or depression. All systems reviewed & are unremarkable except as noted in HPI and below PMFSH Past Medical History Medical History (Updated 05/24/20 @ 15:50 by Savanna Crandall NP) Arthritis Bipolar disorder CVA (cerebral vascular accident) Schizophrenia Surgical History Surgical History History of tonsillectomy Social History Social History Smoking packs per day: 0.5 Smoking cigarettes per day: 10.0 Years smoked: 35 Smoking pack-years: 17.50 Smoking status: Current every day smoker Tobacco type: cigarettes Second hand tobacco smoke exposure: Yes Additional smoking assessment comments: REPORTS SMOKING MARIJUANA DAILY. Alcohol intake: former Substance use: current Substance use type: marijuana Gender identity (if verbalized by the patient): Male Comments At time of signature, agree with nursing past medical, surgical, social and family history. There is no relevant family history pertinent to the presenting complaint Exam Narrative: Exam Narrative: GENERAL: Well-appearing, well-nourished, and in no acute distress. HEAD: Normocephalic, atraumatic. EYES: PERRLA, conjunctivae clear, and EOMI. ENT: Nares clear, turbinates pink, no rhinorrhea or epistaxis. Mucous membranes moist. Oropharynx without edema, erythema, or lesions. Tonsils not enlarged and without exudate. NECK: Supple. No lymphadenopathy CHEST: Speaks in full sentences. No respiratory distress. HEART: Regular rate and rhythm. ABDOMEN: Soft, flat, nondistended. No guarding, rebound tenderness, or rigid. No pulsatilla masses. Bowel sounds present in all four quadrants. No organomegaly. Negative Correa?s sign. No periumbilical tenderness. No Supra public tenderness or distension. Good femoral pulses bilaterally. No hernia noted. No scars or surface trauma. SKIN: Warm, dry, no rash. NEURO: Alert and oriented x3. PSYCH: Normal mood and affect Course Course Emergency Course: Discussed with patient limited diagnostic capability at the [facility] for abdominal pain, discussed transfer to emergency department for further evaluation. At this time through
[2020-05-24 15:27] VITALS: BP 144/84; PULSE 98; RESP 16; TEMP 37.3; O2SAT 99
== END 2020-05-24 15:54 | disposition home or self-care (01) ==
PROVIDERS: Emergency Provider Nurse Practitioner; PCP Physician Assistant
DX: R10.13 Epigastric pain (principal); F17.210 Nicotine dependence, cigarettes, uncomplicated; M19.90 Unspecified osteoarthritis, unspecified site; F31.9 Bipolar disorder, unspecified; F20.9 Schizophrenia, unspecified; Z86.73 Personal history of transient ischemic attack (TIA), and cerebral infarction without residual deficits; Z79.82 Long term (current) use of aspirin
CPT/HCPCS: 99213; G0463

== ENCOUNTER 2020-05-25 13:17 | Emergency (ER) | payer OTHER, SELFPAY ==
[2020-05-25 13:20] VITALS: BP 141/101; PULSE 97; RESP 18; TEMP 36.8; O2SAT 100
--- NOTE | 2020-05-25 13:23 | ED.ABDPAIN ---
HPI - Abdominal Pain General Chief Complaint: Abdominal Pain Stated Complaint: abd pain Time Seen by Provider: 05/25/20 13:23 History of Present Illness HPI narrative: Intermittent burning pain and nausea for the past few days. Worst in the morning. Associated with nausea and feeling like he needs to have a bowel movement. He was seen at urgent care yesterday and prescribed maalox and omeprazole. The maalox helps some. He was not able to fill the omeprazole. No CP, SOB, vomiting. diarrhea. Related Data Home Medications Medication Instructions Recorded Confirmed aspirin 81 mg PO DAILY 05/24/20 05/24/20 quetiapine 100 mg PO HS 05/24/20 05/24/20 Allergies Allergy/AdvReac Type Severity Reaction Status Date / Time steroids AdvReac Intermediate Sweating Uncoded 05/25/20 13:38 Review of Systems Review of Systems: All systems reviewed & are unremarkable except as noted in HPI and below Constitutional: Constitutional: Reports fever(s) ENT: Denies sore throat Cardiovascular: Cardiovascular: Denies chest pain Respiratory: Respiratory: Denies dyspnea Genitourinary: Genitourinary: Reports no additional male genitourinary complaints Musculoskeletal: Musculoskeletal: Denies back pain Neurologic: Reports system reviewed and no additional complaints, except as documented [facility] Past Medical History Medical History Arthritis Bipolar disorder CVA (cerebral vascular accident) Schizophrenia Surgical History Surgical History History of tonsillectomy Social History Social History Smoking packs per day: 0.5 Smoking cigarettes per day: 10.0 Years smoked: 35 Smoking pack-years: 17.50 Smoking status: Current every day smoker Tobacco type: cigarettes Second hand tobacco smoke exposure: Yes Additional smoking assessment comments: REPORTS SMOKING MARIJUANA DAILY. Alcohol intake: former Substance use: current Substance use type: marijuana Gender identity (if verbalized by the patient): Male Exam Const: General: no acute distress and alert Orientation/consciousness: patient oriented x3 HENMT: Head: normal to inspection Neck: Neck: normal visual inspection Chest: Chest palpation & inspection: no tenderness Resp: Effort & Inspection: normal respiratory effort Auscultation: clear to auscultation bilaterally, no rales, no rhonchi and no wheezes Cardio: Jugular venous distension: no JVD Rate: regular rate Rhythm: regular rhythm Heart sounds: no murmurs GI: Inspection: non-distended GI Palp: Yes Soft to palpation, Yes Tenderness to palpation present (GI) (epigastrium) and No Guarding due to palpation present (GI) Skin: General skin exam: normal color Neuro: General: patient oriented x3, moves all extremities, no focal motor deficits and CN's II-XI intact bilaterally Speech: normal speech Gait exam (Neuro): Normal gait present Extrem: General: no edema Other: digital clubbing Psych: Mental Status: mental status grossly normal Affect: Anxious affect present Course Vital Signs Vital signs: Vital Signs Temperature 36.8 C 05/25/20 13:20 Pulse Rate 97 05/25/20 13:20 Respiratory Rate 18 05/25/20 13:20 Blood Pressure 141/101 H 05/25/20 13:20 Pulse Oximetry 100 05/25/20 13:20 Temperature 36.8 C 05/25/20 15:24 Pulse Rate 80 05/25/20 15:24 Respiratory Rate 16 05/25/20 15:24 Blood Pressure 133/86 05/25/20 15:24 Pulse Oximetry 100 05/25/20 15:24 MDM - Abdominal Pain Differential Diagnosis Differential diagnosis: Likely constipation, pancreatitis and other (PUD, GERD, Gastritis, ) Medical Records Attestation: I reviewed the patient's medical records. Lab Data Attestation: I reviewed the patient's lab results. Result diagrams: 05/25/20 13:45 05/25/20 13:45
--- NOTE | 2020-05-25 13:35 | ECG_ITS ---
Measurements Intervals [place] Rate: 84 P: 62 SC: 171 QRS: 63 QRSD: 103 T: 61 QT: 365 QTc: 432 Interpretive Statements SINUS RHYTHM NORMAL ECG Electronically Signed On 05-25-2020 14:01:15 [employer] by Felipe Newell D.O.
[2020-05-25 13:55] LABS: Basophils Percent Auto 0.5 % (0.2-1.2); Eosinophils Absolute Auto 0.1 K/mm3 (0-0.3); Eosinophils Percent Auto 1.4 % (0-4.4); Hematocrit 43.4 % (42.0-52.0); Immature Granulocyte Absolute 0.01 K/mm3 (0.00-0.031); Immature Granulocyte Percent A 0.2 % (0-0.5); Lymphocytes Absolute Auto 1.05 K/mm3 (0.9-3.2); Mean Corpuscular HGB Conc 34.6 g/dl (32-36); Mean Corpuscular Hemoglobin 31.9 pg (26-34); Mean Corpuscular Volume 92.3 fl (80-100); Monocytes Absolute Auto 0.5 K/mm3 (0.1-0.6); Monocytes Percent Auto 11.2 % (2.6-8.5); Neutrophils Absolute Auto 2.8 K/mm3 (1.3-6.7); Neutrophils Percent Auto 62.7 % (45.5-73.1); Platelet Count Result 189 k/mm3 (150-375); Red Cell Distribution Width 12.5 % (11.5-14.5); White Blood Count 4.4 K/mm3 (4.5-10.0)
[2020-05-25] MEDS: LIDOCAINE HCL 2% VISC SOLN 15 ML UDC 20 ML PO (13:55)
[2020-05-25] MEDS: PANTOPRAZOLE SODIUM IV 40 MG VIAL IV PUSH (13:55)
[2020-05-25] MEDS: MAG HYDROX/AL HYDROX/SIMETH 30 ML UDC PO (13:55)
[2020-05-25 14:07] LABS: Alanine Aminotransferase 11 U/L (4-50); Albumin Level 4.1 g/dL (3.5-5.1); Alkaline Phosphatase 60 U/L (38-126); Anion Gap 4 mmol/L (8-16); Aspartate Amino Transferase 19 U/L (17-59); Bilirubin,Total 0.2 mg/dL (0.2-1.3); Blood Urea Nitrogen 18 mg/dL (9-20); Calcium 8.7 mg/dL (8.4-10.2); Carbon Dioxide 29 mmol/L (22-30); Chloride 107 mmol/L (98-107); Estimated CRCL calculation 93 ml/min; Estimated Glomerular Filt Rate > 60; Glucose 99 mg/dL (75-110); Lipase 125 U/L (23-300); Potassium 3.2 mmol/L (3.4-5.0); Sodium 140 mmol/L (137-145)
[2020-05-25 14:19] LABS: Troponin I < 0.012 ng/mL (0.000-0.034)
[2020-05-25 15:24] VITALS: BP 133/86; PULSE 80; RESP 16; TEMP 36.8; O2SAT 100
== END 2020-05-25 15:25 | disposition home or self-care (01) ==
PROVIDERS: Emergency Provider Emergency Medicine; PCP Physician Assistant
DX: R10.13 Epigastric pain (principal); M19.90 Unspecified osteoarthritis, unspecified site; Z86.73 Personal history of transient ischemic attack (TIA), and cerebral infarction without residual deficits; Z79.82 Long term (current) use of aspirin; F20.9 Schizophrenia, unspecified; F31.9 Bipolar disorder, unspecified; F17.210 Nicotine dependence, cigarettes, uncomplicated
CPT/HCPCS: 36415; 80053; 83690; 84484; 85025; 93005; 96374; 99284; A9270; C9113

== ENCOUNTER 2020-05-30 14:30 | Outpatient (RCR) | payer OTHER, SELFPAY | END 2020-05-30 23:59 | disposition home or self-care (01) | LOC: ANHAUDIO 14:30 | PROVIDERS: PCP Physician Assistant; Visit Provider Physician Assistant | DX: Z46.1 Encounter for fitting and adjustment of hearing aid (principal) | CPT/HCPCS: 99199; V5160; V5261 ==

== ENCOUNTER 2020-10-24 16:02 | Emergency (ER) | payer OTHER, SELFPAY ==
--- NOTE | ~2020-10-24 | XR_ITS ---
EXAMINATION: XR hip LT 2V w AP pelvis DATE: 10/24/2020 17:51 INDICATION: Left hip pain. TECHNIQUE: An anteroposterior view of the pelvis and 2 views of left hip were obtained. COMPARISON: None. FINDINGS: Bone alignment is normal. No fracture. There is mild osteoarthritis of the hips. IMPRESSION: 1. Mild osteoarthritis of the hips. Reviewed, dictated and finalized at location A.
--- NOTE | ~2020-10-24 | US_ITS ---
EXAMINATION: US venous doppler [facility] DATE: 10/24/2020 17:49 INDICATION: Left lower limb pain. TECHNIQUE: Grayscale ultrasound images without and with compression and Doppler ultrasound images of the left lower extremity veins were obtained. COMPARISON: None. FINDINGS: The visualized portions of left common femoral vein, profunda (deep) femoral vein, femoral vein, popl iteal vein, peroneal veins, posterior tibial veins, and greater saphenous vein outflow are patent. IMPRESSION: 1. No deep venous thrombosis. Reviewed, dictated and finalized at location A.
[2020-10-24 16:04] VITALS: BP 141/83; PULSE 94; RESP 18; TEMP 37.5; O2SAT 100
[2020-10-24 17:11] VITALS: BP 157/99; PULSE 93; RESP 18; O2SAT 100
--- NOTE | 2020-10-24 17:38 | ED.EXTPRO ---
HPI - Extremity Problem General Chief complaint: Extremity Problem,Nontraumatic Stated complaint: left groin pain Time Seen by Provider: 10/24/20 17:09 Source: patient Mode of arrival: ambulatory Limitations: no limitations History of Present Illness HPI Narrative: This is a 55 year old male that presents to the ER for left groin pain present x 2 days. Reports he is unsure of a certain injury. He feels like he pulled a muscle. Reports the pain is worse with movement and relieved with rest. He has not taken any pain medication. Denies fever, erythema, edema, or numbness. Related Data Home Medications Medication Instructions Recorded Confirmed aspirin 81 mg PO DAILY 05/24/20 05/24/20 quetiapine 100 mg PO HS 05/24/20 05/24/20 sucralfate 1 g PO TID 10/24/20 Allergies Allergy/AdvReac Type Severity Reaction Status Date / Time steroids AdvReac Intermediate Sweating Uncoded 10/24/20 17:07 Review of Systems Review of Systems: CONSTITUTIONAL: Denies fever GASTROINTESTINAL: Denies abdominal pain, nausea, vomiting GENITOURINARY: Denies dysuria or hematuria. SKIN: Denies rash MUSCULOSKELETAL: Reports joint pain, and myalgia. NEUROLOGIC: Denies numbness, or weakness. All systems reviewed & are unremarkable except as noted in HPI and below PMFSH Past Medical History Medical History (Updated 10/24/20 @ 20:12 by Hannah Joshi PA-C) Arthritis Bipolar disorder CVA (cerebral vascular accident) Schizophrenia Surgical History Surgical History History of tonsillectomy Social History Social History Smoking packs per day: 0.5 Smoking cigarettes per day: 10.0 Years smoked: 35 Smoking pack-years: 17.50 Smoking status: Current every day smoker Tobacco type: cigarettes Second hand tobacco smoke exposure: Yes Additional smoking assessment comments: REPORTS SMOKING MARIJUANA DAILY. Alcohol intake: former Substance use: current Substance use type: marijuana Gender identity (if verbalized by the patient): Male Exam Narrative: GENERAL: Well-appearing, well-nourished, and in no acute distress. HEAD: Normocephalic, atraumatic. EYES: EOMI. CHEST: Clear to auscultation. No respiratory distress. No wheezes rales or rhonchi HEART: Regular rate and rhythm. No murmur heard. Normal peripheral pulses. ABDOMEN: Soft, nontender, nondistended, normal active bowel sounds. EXTREMITIES: Normal range of motion. No edema, erythema or warmth. Normal DP pulses SKIN: Warm, dry, no rash. NEURO: No focal deficits. Alert and oriented x3. PSYCH: Normal mood and affect Course Vital Signs Vital signs: Vital Signs Temperature 99.5 F 10/24/20 16:04 Pulse Rate 94 10/24/20 16:04 Respiratory Rate 18 10/24/20 16:04 Blood Pressure 141/83 H 10/24/20 16:04 Pulse Oximetry 100 10/24/20 16:04 Temperature 99.5 F 10/24/20 16:04 Pulse Rate 93 10/24/20 17:11 Respiratory Rate 18 10/24/20 17:11 Blood Pressure 157/99 H 10/24/20 17:11 Pulse Oximetry 100 10/24/20 17:11 MDM - Extremity (Nontraumatic) MDM Narrative Medical decision making narrative: Patient presents to the ER for left groin pain present over the last couple of days. Worse with movement and relieved with rest. No known injuries. Patient is neurovascularly intact. CBC and metabolic panel without concerning findings. CRP is not elevated. Left lower extremity venous Dopplers without evidence of DVT. Left hip x-ray shows mild osteoarthritis. Patient and family updated on case findings. He was instructed to rest, ice and take [id number]-vvarvic pain medication as needed. He is to follow-up with primary care doctor. He was given warnings to return to the ER Lab Data Attestation: I reviewed the patient's lab results. Result diagrams: 10/24/20 19:00 10/24/20 19:00 Labs: Lab Results 10/24/20 10/24/20
[2020-10-24 19:00] VITALS: BP 150/70; PULSE 88; RESP 17; O2SAT 97
[2020-10-24 19:19] LABS: Basophils Percent Auto 0.6 % (0.2-1.2); Eosinophils Absolute Auto 0.1 K/mm3 (0-0.3); Hematocrit 45.3 % (42.0-52.0); Hemoglobin 15.3 g/dL (14.0-18.0); Immature Granulocyte Absolute 0.01 K/mm3 (0.00-0.031); Immature Granulocyte Percent A 0.1 % (0-0.5); Lymphocytes Absolute Auto 1.65 K/mm3 (0.9-3.2); Lymphocytes Percent Auto 24.6 % (18.3-44.2); Mean Corpuscular HGB Conc 33.8 g/dl (32-36); Mean Corpuscular Hemoglobin 31.5 pg (26-34); Mean Corpuscular Volume 93.4 fl (80-100); Monocytes Absolute Auto 0.4 K/mm3 (0.1-0.6); Monocytes Percent Auto 6.3 % (2.6-8.5); Neutrophils Absolute Auto 4.5 K/mm3 (1.3-6.7); Neutrophils Percent Auto 67.4 % (45.5-73.1); Platelet Count Result 200 k/mm3 (150-375); Red Blood Count 4.85 M/mm3 (4.6-6.20); White Blood Count 6.7 K/mm3 (4.5-10.0)
[2020-10-24 19:33] LABS: Anion Gap 4 mmol/L (8-16); Blood Urea Nitrogen 10 mg/dL (9-20); CRP < 0.5 mg/dL (<1.0); Calcium 9.2 mg/dL (8.4-10.2); Carbon Dioxide 29 mmol/L (22-30); Chloride 107 mmol/L (98-107); Estimated CRCL calculation 80 ml/min; Estimated Glomerular Filt Rate > 60; Glucose 83 mg/dL (65-110); INR 0.9; Potassium 4.2 mmol/L (3.4-5.0); Prothrombin Time 11.8 Seconds (11.1-14.7); Sodium 140 mmol/L (137-145)
[2020-10-24 19:34] LABS: Partial Thromboplastin Time 27.5 SECONDS (22.3-36.8)
[2020-10-24 20:12] LABS: Erythrocyte Sedimentation Rate 7 mm/hr (0-20)
[2020-10-24 20:30] VITALS: BP 137/88; PULSE 90; RESP 17; O2SAT 100
== END 2020-10-24 20:30 | disposition home or self-care (01) ==
PROVIDERS: Physician Assistant; Emergency Provider Family Medicine; PCP Physician Assistant
DX: M16.0 Bilateral primary osteoarthritis of hip (principal); Z86.73 Personal history of transient ischemic attack (TIA), and cerebral infarction without residual deficits; F20.9 Schizophrenia, unspecified; F31.9 Bipolar disorder, unspecified; F17.210 Nicotine dependence, cigarettes, uncomplicated; Z79.82 Long term (current) use of aspirin
CPT/HCPCS: 36415; 73502; 80048; 85025; 85610; 85652; 85730; 86140; 93971; 99284

== ENCOUNTER 2020-10-26 07:45 | Emergency (ER) | payer OTHER, SELFPAY ==
--- NOTE | ~2020-10-26 | CT_ITS ---
EXAMINATION: CT abdomen pelvis w con INDICATION: Left lower quadrant and groin pain TECHNIQUE: Computed tomographic images of the abdomen and pelvis were obtained after the administrati on of 100 cc of Omnipaque 350 intravenous contrast. The dose-length product (DLP) was 198.99 mGy-cm. Automated exposure control and iterative reconstruction technique were employed. COMPARISON: 04/03/2018 FINDINGS: Minimal dependent atelectasis is present in the lung bases. The heart size is normal. There is a 4 mm cyst of the liver. The spleen, pancreas, gallbladder, and adrenal glands are normal. There is a 7 mm cyst cysts of the left kidney measure up to 10 mm. The right kidney is unremarkable. There is calcified atherosclerosis of the aorta and many of the other arteries. No pathologically enlarged abdominal or pelvic lymph nodes are identified. The appendix is normal. There is mild osteoarthritis of the hips. A moderate volume of colonic stool is present. IMPRESSION: 1. No CT correlate for the patient's symptoms. Reviewed, dictated and finalized at location A.
[2020-10-26 07:54] VITALS: BP 153/84; PULSE 75; RESP 17; TEMP 36.6; O2SAT 100
--- NOTE | 2020-10-26 08:03 | ED.GENADULT ---
HPI - General Adult General Chief complaint: Unspecified Stated complaint: GROIN PAIN Time Seen by Provider: 10/26/20 07:47 Source: RN notes reviewed History of Present Illness HPI narrative: Patient presents to emergency department from work for left groin pain. Patient states he initially injured his left groin 5 days ago he states he was at work does not recall a specific injury but noted pain that began in his left groin states the pain is worse with movement and movement of his leg he presented to the emergency department on Thursday for evaluation and had an ultrasound of his leg at that time was negative for DVTs x-ray showing arthritis he states that he had try to go back to work today and the pain to become more severe he denies any direct trauma or injury he denies any fevers or chills chest pain shortness of breath he states pain is in the left lower quadrant of the abdomen he denies any testicular pain or urethral discharge states he took Aleve this morning for the pain with minimal relief Related Data Home Medications Medication Instructions Recorded Confirmed aspirin 81 mg PO DAILY 05/24/20 05/24/20 quetiapine 100 mg PO HS 05/24/20 05/24/20 sucralfate 1 g PO TID 10/24/20 Allergies Allergy/AdvReac Type Severity Reaction Status Date / Time steroids AdvReac Intermediate Sweating Uncoded 10/26/20 07:59 Review of Systems Review of Systems: Gen.: Denies fevers or chills ENT: Denies congestion Respiratory: Denies shortness of breath or cough CV: Denies chest pain or palpitations GI: See HPI denies burning, urgency, frequency or hematuria Musculoskeletal: Denies back pain or muscle pain Neuro: Denies numbness, tingling, weakness or focal weakness Skin: Denies rash Except as documented, all other systems reviewed and negative [facility] Past Medical History Medical History (Updated 10/26/20 @ 10:21 by Andrew Cornejo DO) Arthritis Bipolar disorder CVA (cerebral vascular accident) Schizophrenia Surgical History Surgical History History of tonsillectomy Social History Social History Smoking packs per day: 0.5 Smoking cigarettes per day: 10.0 Years smoked: 35 Smoking pack-years: 17.50 Smoking status: Current every day smoker Tobacco type: cigarettes Second hand tobacco smoke exposure: Yes Additional smoking assessment comments: REPORTS SMOKING MARIJUANA DAILY. Alcohol intake: former Substance use: current Substance use type: marijuana Gender identity (if verbalized by the patient): Male Exam Narrative: APPEARANCE: No acute distress, nontoxic, resting in bed HEENT: Normocephalic, atraumatic, OMM RESPIRATORY: No respiratory distress, clear to auscultation bilaterally with no rhonchi wheezing or rales CARDIOVASCULAR: RRR s murmur ABDOMINAL: Soft nondistended tender palpation left lower quadrant no tenderness in right lower quadrant, right upper quadrant left upper quadrant no rebound or guarding, tenderness in the left inguinal region with no swelling or ecchymosis present pain mildly increased with full flexion of the left hip : No skin lesions, no scrotal swelling or erythema, no testicular tenderness MUSCULOSKELETAl: Moves all extremities. No clubbing, cyanosis or edema. NEURO: Awake and alert. Following commands, speech normal, no focal deficits SKIN:: Warm, dry. Normal Color PSYCHIATRIC: Normal affect/mood Course Course Emergency Course: Patient states that they are feeling much better at this time. States abdominal pain has resolved. Repeat abdominal exam shows the patient's abdomen to be soft and nontender. Discussed with patient results of workup and diagnosis. Discussed need for follow-up with primary care physician, reasons to return to the emergency department in proper use of medication. Patient understands and agrees to current treatment plan Vital Signs Vi
[2020-10-26] MEDS: MORPHINE SULFATE (*CRX) 4 MG/ML INJ IV PUSH (08:26)
[2020-10-26 08:35] LABS: Basophils Absolute Auto 0.1 K/mm3 (0.0-0.1); Basophils Percent Auto 0.7 % (0.2-1.2); Eosinophils Absolute Auto 0.1 K/mm3 (0-0.3); Hematocrit 41.9 % (42.0-52.0); Hemoglobin 13.9 g/dL (14.0-18.0); Immature Granulocyte Absolute 0.02 K/mm3 (0.00-0.031); Immature Granulocyte Percent A 0.3 % (0-0.5); Lymphocytes Absolute Auto 1.52 K/mm3 (0.9-3.2); Mean Corpuscular HGB Conc 33.2 g/dl (32-36); Mean Corpuscular Hemoglobin 31.3 pg (26-34); Mean Corpuscular Volume 94.4 fl (80-100); Mean Platelet Volume 9.1 fl (7.4-10.4); Monocytes Absolute Auto 0.5 K/mm3 (0.1-0.6); Monocytes Percent Auto 6.8 % (2.6-8.5); Neutrophils Absolute Auto 5.1 K/mm3 (1.3-6.7); Neutrophils Percent Auto 70.2 % (45.5-73.1); Platelet Count Result 200 k/mm3 (150-375); Red Blood Count 4.44 M/mm3 (4.6-6.20); Red Cell Distribution Width 13.1 % (11.5-14.5); White Blood Count 7.2 K/mm3 (4.5-10.0)
[2020-10-26 08:45] LABS: Add Urine Microscopic? YES; Appearance Urine Clear (Clear); Bacteria Urine Trace /hpf; Bilirubin Urine Negative (Negative); Blood Urine Negative (Negative); Color Urine Yellow (Yellow); Glucose Urine UA Negative (Negative); Ketones Urine Negative (Negative); Leukocyte Esterase Ur Negative LEU/UL (Negative); Mucus Urine Heavy /lpf; Nitrate Urine Negative (Negative); Protein Urine Negative (Negative); Squamous Epithelial Cell Urine Few /hpf (Few); WBC Urine 0-3 /hpf
[2020-10-26 08:46] LABS: Alanine Aminotransferase 11 U/L (4-50); Alkaline Phosphatase 60 U/L (38-126); Anion Gap 4 mmol/L (8-16); Aspartate Amino Transferase 19 U/L (17-59); Bilirubin,Total 0.5 mg/dL (0.2-1.3); Blood Urea Nitrogen 14 mg/dL (9-20); Calcium 9.2 mg/dL (8.4-10.2); Carbon Dioxide 28 mmol/L (22-30); Chloride 107 mmol/L (98-107); Estimated CRCL calculation 78 ml/min; Estimated Glomerular Filt Rate > 60; Glucose 102 mg/dL (65-110); Potassium 4.4 mmol/L (3.4-5.0); Sodium 139 mmol/L (137-145)
[2020-10-26 08:59] LABS: Specific Grav Ur 1.031 (1.001-1.035)
[2020-10-26 10:11] VITALS: BP 154/65; PULSE 61; RESP 12; O2SAT 100
== END 2020-10-26 10:34 | disposition home or self-care (01) ==
PROVIDERS: Emergency Provider Emergency Medicine; PCP Physician Assistant
DX: S39.011A Strain of muscle, fascia and tendon of abdomen, initial encounter (principal); Z79.82 Long term (current) use of aspirin; M19.90 Unspecified osteoarthritis, unspecified site; F31.9 Bipolar disorder, unspecified; F20.9 Schizophrenia, unspecified; F17.210 Nicotine dependence, cigarettes, uncomplicated; X58.XXXA Exposure to other specified factors, initial encounter
CPT/HCPCS: 36415; 74177; 80053; 81001; 85025; 96374; 99284; J2270; Q9967

== ENCOUNTER 2021-04-26 12:35 | Emergency (ER) | payer OTHER, SELFPAY ==
[2021-04-26 12:55] VITALS: BP 131/92; PULSE 108; RESP 16; TEMP 37.2; O2SAT 100
--- NOTE | 2021-04-26 14:00 | ED.LOWEXIN ---
HPI - Extremity Injury (Lower) General Chief Complaint: Extremity Injury, Lower Stated Complaint: left leg pain Time Seen by Provider: 04/26/21 13:50 Source: patient History of Present Illness HPI Narrative: Patient presents with left groin injury. Patient ports he was sweeping snow off of his carport when his dog ran out and he tripped and fell. That happened a couple days ago. His pain has been achy, constant, no radiation, worse with walking around his. He has been attempting to manage his symptoms at home but due to work shortages he did going to work and has noted slight increase in pain. Patient is requesting a work note so he can rest at home. More severe with rest ice and elevation which does assist. He reports has injured this leg previously and usually after he rests his symptoms improved. Patient reports he does not want any pain meds and does not want imaging. Denies striking his head denies any loss conscious denies any nausea or vomiting denies any focal numbness or weakness. Related Data Home Medications Medication Instructions Recorded Confirmed aspirin 81 mg PO DAILY 05/24/20 05/24/20 quetiapine 100 mg PO HS 05/24/20 05/24/20 sucralfate 1 g PO TID 10/24/20 Allergies Allergy/AdvReac Type Severity Reaction Status Date / Time steroids AdvReac Intermediate Sweating Uncoded 10/26/20 07:59 Review of Systems Review of Systems: CONSTITUTIONAL: Denies fever, chills, or sweats. EYES: Denies visual changes, redness, or discharge. ENT: Denies rhinorrhea, congestion, sore throat, or otalgia. CARDIOVASCULAR: Denies chest pain, palpitations, or edema. RESPIRATORY: Denies cough or dyspnea. GASTROINTESTINAL: Denies abdominal pain, nausea, vomiting, or diarrhea. GENITOURINARY: Denies dysuria or hematuria. SKIN: Denies rash or itching. MUSCULOSKELETAL: Denies back pain, joint pain, or myalgia. NEUROLOGIC: Denies headache, numbness, dizziness, or weakness. PSYCHIATRIC: Denies anxiety or depression. All systems reviewed & are unremarkable except as noted in HPI and below PMFSH Past Medical History Medical History (Updated 04/26/21 @ 14:06 by Jace Lopez MD) Arthritis Bipolar disorder CVA (cerebral vascular accident) Schizophrenia Surgical History Surgical History History of tonsillectomy Social History Social History Smoking packs per day: 0.5 Smoking cigarettes per day: 10.0 Years smoked: 35 Smoking pack-years: 17.50 Smoking status: Current every day smoker Tobacco type: cigarettes Second hand tobacco smoke exposure: Yes Additional smoking assessment comments: REPORTS SMOKING MARIJUANA DAILY. Alcohol intake: former Substance use: current Substance use type: marijuana Gender identity (if verbalized by the patient): Male Exam Narrative: GENERAL: Well-appearing, well-nourished, and in no acute distress. HEAD: Normocephalic, atraumatic. EYES: PERRLA and EOMI. ENT: Nares clear, no rhinorrhea or epistaxis. Mucous membranes moist. NECK: Supple. No masses. No JVD EXTREMITIES: Normal range of motion. No edema. Mild tenderness with palpation of the inguinal area no open or draining wounds no erythema no swelling noted SKIN: Warm, dry, no rash. NEURO: No focal deficits. Alert and oriented x3. PSYCH: Normal mood and affect. Course Vital Signs Vital signs: Vital Signs Temperature 37.2 C 04/26/21 12:55 Pulse Rate 108 H 04/26/21 12:55 Respiratory Rate 16 04/26/21 12:55 Blood Pressure 131/92 H 04/26/21 12:55 Pulse Oximetry 100 04/26/21 12:55 Temperature 38.3 C H 04/26/21 14:16 Pulse Rate 102 H 04/26/21 14:16 Respiratory Rate 16 04/26/21 14:16 Blood Pressure 138/96 H 04/26/21 14:16 Pulse Oximetry 100 04/26/21 14:16 MDM - Extremity Injury (Lower) MDM Narrative Medical decision making narrative: H&P as above, vss, pt looks clinica
[2021-04-26 14:16] VITALS: BP 138/96; PULSE 102; RESP 16; TEMP 38.3; O2SAT 100
== END 2021-04-26 14:22 | disposition home or self-care (01) ==
LOC: ANHED 14:15
PROVIDERS: Emergency Provider Emergency Medicine; PCP Physician Assistant
DX: S39.011A Strain of muscle, fascia and tendon of abdomen, initial encounter (principal); M19.90 Unspecified osteoarthritis, unspecified site; F20.9 Schizophrenia, unspecified; F31.9 Bipolar disorder, unspecified; F17.210 Nicotine dependence, cigarettes, uncomplicated; Z86.73 Personal history of transient ischemic attack (TIA), and cerebral infarction without residual deficits; Z79.82 Long term (current) use of aspirin; W01.0XXA Fall on same level from slipping, tripping and stumbling without subsequent striking against object, initial encounter
CPT/HCPCS: 99283

== ENCOUNTER 2021-07-09 13:33 | Emergency (ER) | payer OTHER, SELFPAY ==
[2021-07-09 13:43] VITALS: BP 145/87; PULSE 98; RESP 16; TEMP 36.7; O2SAT 98
--- NOTE | 2021-07-09 14:02 | ED.GENADULT ---
HPI - General Adult General Chief complaint: Abdominal Pain Stated complaint: ABD PAIN Time Seen by Provider: 07/09/21 14:03 Source: patient, RN notes reviewed and old records reviewed Mode of arrival: ambulatory Limitations: no limitations History of Present Illness HPI narrative: 55-year-old male presents to [facility] with intermittent epigastric pain since running out of his [place]. States he woke up this morning with burning acid in his mouth. Denies any chest pain or abdominal pain on exam. Denies shortness of breath. Patient states he has an appointment with his primary care doctor tomorrow but would like something for his heartburn today. Denies vomiting or diarrhea. Related Data Home Medications Medication Instructions Recorded Confirmed aspirin 81 mg PO DAILY 05/24/20 07/09/21 sucralfate 1 g PO TID 10/24/20 07/09/21 Allergies Allergy/AdvReac Type Severity Reaction Status Date / Time steroids AdvReac Intermediate Sweating Uncoded 10/26/20 07:59 Review of Systems Review of Systems: All systems reviewed & are unremarkable except as noted in HPI and below Constitutional: Constitutional: Reports no additional constitutional complaints, Denies chills and Denies fever(s) Eyes: Eyes: Reports no additional eye complaints ENT: Reports system reviewed and no additional complaints, except as documented Cardiovascular: Cardiovascular: Reports no additional cardiovascular complaints and Denies chest pain Respiratory: Respiratory: Reports no additional respiratory complaints, Denies cough, Denies dyspnea and Denies wheezing Gastrointestinal: Gastrointestinal: Reports no additional gastrointestinal complaints and Reports heartburn Musculoskeletal: Musculoskeletal: Reports no additional musculoskeletal complaints Integumentary/Breasts: Skin/Breast: Reports system reviewed and no additional complaints, except as docu Neurologic: Reports system reviewed and no additional complaints, except as documented Psychiatric: Psychiatric: Reports no additional psychiatric complaints Allergic/Immunologic: Allergic/Immunologic: Reports no additional allergic/immunologic complaints [facility] Past Medical History Medical History (Updated 07/09/21 @ 14:10 by Savanna Capone APRN) Arthritis Bipolar disorder CVA (cerebral vascular accident) Schizophrenia Surgical History Surgical History History of tonsillectomy Social History Social History Smoking packs per day: 0.5 Smoking cigarettes per day: 10.0 Years smoked: 35 Smoking pack-years: 17.50 Smoking status: Current every day smoker Tobacco type: cigarettes Second hand tobacco smoke exposure: Yes Additional smoking assessment comments: REPORTS SMOKING MARIJUANA DAILY. Alcohol intake: former Substance use: current Substance use type: marijuana Gender identity (if verbalized by the patient): Male Comments At the time of my signature, I reviewed and agree with the nursing past medical, surgical, social, and family history. There is no relevant family history pertinent to the patient complaint. Exam Const: General: no acute distress, alert and ill appearing chronically Nutritional Appearance: well nourished Orientation/consciousness: patient oriented x3 Limitations: no limitations HENMT: Head: normal to inspection Ears: external ears normal Eyes: Pupils: Equal, round and reactive pupils present Neck: Neck: normal visual inspection, no lymphadenopathy and no meningeal signs Chest: Chest palpation & inspection: normal inspection of the chest Resp: Effort & Inspection: normal respiratory effort and no use of accessory muscles Auscultation: clear to auscultation bilaterally, no crackles, no rales, no rhonchi and no wheezes Cardio: Rate: regular rate Rhythm: regular rhythm GI: GI Palp: Yes Soft to palpation and No Tenderness to
== END 2021-07-09 14:21 | disposition home or self-care (01) ==
PROVIDERS: Emergency Provider Nurse Practitioner; PCP Physician Assistant
DX: K21.9 Gastro-esophageal reflux disease without esophagitis (principal); F17.210 Nicotine dependence, cigarettes, uncomplicated; F12.90 Cannabis use, unspecified, uncomplicated; M19.90 Unspecified osteoarthritis, unspecified site; Z86.73 Personal history of transient ischemic attack (TIA), and cerebral infarction without residual deficits; Z79.82 Long term (current) use of aspirin
CPT/HCPCS: 99213; G0463

== ENCOUNTER 2021-08-10 17:01 | Emergency (ER) | payer OTHER, SELFPAY ==
--- NOTE | ~2021-08-10 | XR_ITS ---
EXAM: XR lumbar spine 2-3V DATE: 08/10/2021 17:50 HISTORY: fall last night, back pain . COMPARISON: None available. FINDINGS: 5 nonrib-bearing lumbar-type vertebral bodies. Pedicles intact. Normal vertebral body alig nment. Vertebral body heights preserved. Mild disc space narrowing at L4-5, otherwise disc spaces zach ntained. Normal facets and posterior elements. No fracture or dislocation. IMPRESSION: Mild degenerative disc disease at L4-5. No acute fracture or traumatic malalignment detec kal in the lumbar spine. Reviewed, dictated and finalized at location K. IMPRESSION: Mild degenerative disc disease at L4-5. No acute fracture or trauma tic malalignment detected in the lumbar spine.
[2021-08-10 17:20] VITALS: BP 113/71; PULSE 80; RESP 18; TEMP 36.7; O2SAT 99
--- NOTE | 2021-08-10 17:34 | ED.BACK ---
HPI - Back Pain/Injury General Chief Complaint: Back Pain/Injury Stated Complaint: back pain Time Seen by Provider: 08/10/21 17:33 Source: patient Mode of arrival: ambulatory Limitations: no limitations History of Present Illness HPI Narrative: The patient is a 55-year-old male with history of bipolar disorder, schizophrenia, previous CVA, presenting to the emergency department for evaluation of back pain following a ground-level fall. Patient states that he fell backwards while changing a tire on his car, states that he had his back landed into a cement wall. Patient denied any head trauma or loss of conscious. He denied actual fall to the ground. Patient has been ambulatory since that time, injury occurred greater than 24 hours ago. Patient states that he has not experienced any saddle anesthesia, bowel or bladder dysfunction. Patient declines wanting any medication for pain, states that he wanted to get checked out since his back was sore. He denies any upper chest pain, shortness of breath, lightheadedness or dizziness. No prodromal symptoms prior to the fall. States that he simply tripped causing him to fall backwards. Related Data Home Medications Medication Instructions Recorded Confirmed aspirin 81 mg PO DAILY 05/24/20 07/09/21 sucralfate 1 g PO TID 10/24/20 07/09/21 Allergies Allergy/AdvReac Type Severity Reaction Status Date / Time steroids AdvReac Intermediate Sweating Uncoded 10/26/20 07:59 Review of Systems Review of Systems: CONSTITUTIONAL: Denies fever, chills, or sweats. EYES: Denies visual changes, redness, or discharge. ENT: Denies rhinorrhea, congestion, sore throat, or otalgia. CARDIOVASCULAR: Denies chest pain, palpitations, or edema. RESPIRATORY: Denies cough or dyspnea. GASTROINTESTINAL: Denies abdominal pain, nausea, vomiting, or diarrhea. GENITOURINARY: Denies dysuria or hematuria. SKIN: Denies rash or itching. MUSCULOSKELETAL: Reports lower back pain without other joint pain, or myalgia. NEUROLOGIC: Denies headache, numbness, or weakness. [facility] Past Medical History Medical History Arthritis Bipolar disorder CVA (cerebral vascular accident) Schizophrenia Surgical History Surgical History History of tonsillectomy Social History Social History Smoking packs per day: 0.5 Smoking cigarettes per day: 10.0 Years smoked: 35 Smoking pack-years: 17.50 Smoking status: Current every day smoker Tobacco type: cigarettes Second hand tobacco smoke exposure: Yes Additional smoking assessment comments: REPORTS SMOKING MARIJUANA DAILY. Alcohol intake: former Substance use: current Substance use type: marijuana Gender identity (if verbalized by the patient): Male Exam Narrative: GENERAL: Awake, alert, conversant HEAD: Normocephalic, atraumatic. EYES: PERRLA and EOMI. ENT: Nares clear, no rhinorrhea or epistaxis. Mucous membranes moist. NECK: Supple. No cervical spine tenderness. No midline tenderness. No step-offs or deformities. CHEST: No respiratory distress, breathing even and non labored HEART: Regular rate, sinus rhythm ABDOMEN:Non distended, non tender EXTREMITIES: Normal range of motion. No edema. Thorax: No ecchymosis or abrasions. No midline thoracic or lumbar tenderness. Positive bilateral paraspinal lumbar tenderness which reproduces pain. Patient with full flexion and extension without limitation. SKIN: Warm, dry, no rash. NEURO:No focal deficits. Alert and oriented x3. Ambulatory with a narrow base, steady gait, no ataxia. Course Vital Signs Vital signs: Vital Signs Temperature 36.7 C 08/10/21 17:20 Pulse Rate 80 08/10/21 17:20 Respiratory Rate 18 08/10/21 17:20 Blood Pressure 113/71 08/10/21 17:20 Pulse Oximetry 99 08/10/21 17:20 Temperature 36.7 C 08/10/21
== END 2021-08-10 18:28 | disposition home or self-care (01) ==
PROVIDERS: Emergency Provider Emergency Medicine; PCP Physician Assistant
DX: S39.012A Strain of muscle, fascia and tendon of lower back, initial encounter (principal); M19.90 Unspecified osteoarthritis, unspecified site; Z86.73 Personal history of transient ischemic attack (TIA), and cerebral infarction without residual deficits; Z79.82 Long term (current) use of aspirin; M51.36 Other intervertebral disc degeneration, lumbar region; W01.198A Fall on same level from slipping, tripping and stumbling with subsequent striking against other object, initial encounter
CPT/HCPCS: 72100; 99283

== ENCOUNTER 2021-09-10 10:49 | Emergency (ER) | payer OTHER, SELFPAY ==
[2021-09-10 10:52] VITALS: BP 151/73; PULSE 111; RESP 16; TEMP 36.9; O2SAT 99
--- NOTE | 2021-09-10 11:12 | ED.BACK ---
HPI - Back Pain/Injury General Chief Complaint: Back Pain/Injury Stated Complaint: back pain Time Seen by Provider: 09/10/21 11:01 History of Present Illness HPI Narrative: 55-year-old male presents the emergency room for evaluation for acute on chronic low back pain. Patient states that he stood up from a sitting position this morning, and experienced low back pain. Patient denies any radiating pain. Patient denies any changes or loss to his bowel or bladder habits. Patient denies any saddle anesthesia. Patient states the pain is worse when bending forward and when turning to his right. Patient denies any injury or trauma Related Data Home Medications Medication Instructions Recorded Confirmed aspirin 81 mg tablet,delayed 81 mg PO DAILY 05/24/20 07/09/21 release sucralfate 1 gram tablet 1 g PO TID 10/24/20 07/09/21 Allergies Allergy/AdvReac Type Severity Reaction Status Date / Time steroids AdvReac Intermediate Sweating Uncoded 10/26/20 07:59 Review of Systems Review of Systems: CONSTITUTIONAL: Denies fever, chills, or sweats. GASTROINTESTINAL: Denies abdominal pain, nausea, vomiting, or diarrhea. GENITOURINARY: Denies dysuria or hematuria. SKIN: Denies rash or itching. MUSCULOSKELETAL: Reports lower back pain NEUROLOGIC: Denies headache, numbness, dizziness, or weakness. PSYCHIATRIC: Denies anxiety or depression. PMFSH Past Medical History Medical History (Updated 09/10/21 @ 11:14 by Mohamud Menendez APRN) Arthritis Bipolar disorder CVA (cerebral vascular accident) Schizophrenia Surgical History Surgical History History of tonsillectomy Social History Social History Smoking packs per day: 0.5 Smoking cigarettes per day: 10.0 Years smoked: 35 Smoking pack-years: 17.50 Smoking status: Current every day smoker Tobacco type: cigarettes Second hand tobacco smoke exposure: Yes Additional smoking assessment comments: REPORTS SMOKING MARIJUANA DAILY. Alcohol intake: former Substance use: current Substance use type: marijuana Gender identity (if verbalized by the patient): Male Exam Narrative: GENERAL: Well-appearing, well-nourished, and in no acute distress. HEAD: Normocephalic, atraumatic. EYES: PERRLA and EOMI. CHEST: Clear to auscultation. No respiratory distress. No wheezes rales or rhonchi HEART: Regular rate and rhythm. No murmur heard. Normal peripheral pulses. ABDOMEN: Soft, nontender, nondistended, normal active bowel sounds. EXTREMITIES: Normal range of motion. No edema. BACK: Tenderness to the left thoracolumbar fascia, no midline tenderness, no step-off, full range of motion with rotation and lateral bend, negative SLE bilaterally SKIN: Warm, dry, no rash. NEURO: No focal deficits. Alert and oriented x3. PSYCH: Normal mood and affect. Course Vital Signs Vital signs: Vital Signs Temperature 36.9 C 09/10/21 10:52 Pulse Rate 111 H 09/10/21 10:52 Respiratory Rate 16 09/10/21 10:52 Blood Pressure 151/73 H 09/10/21 10:52 Pulse Oximetry 99 09/10/21 10:52 Oxygen Delivery Room Air 09/10/21 10:52 Temperature 36.9 C 09/10/21 10:52 Pulse Rate 111 H 09/10/21 10:52 Respiratory Rate 16 09/10/21 10:52 Blood Pressure 151/73 H 09/10/21 10:52 Pulse Oximetry 99 09/10/21 10:52 Oxygen Delivery Room Air 09/10/21 10:52 Discharge Plan Discharge Clinical Impression: Low back pain Patient Disposition: Home, Self-Care Condition: Stable Instructions: Antibiotic Form, Back Pain (ED) Prescriptions: New methocarbamol 500 mg tablet 500 mg PO BID Qty: 14 0RF No Action aspirin 81 mg tablet,delayed release (DR/EC) 81 mg PO DAILY sucralfate 1 gram tablet 1 g PO TID Qty: 7 0RF sucralfate 1 gram tablet 1 g PO TID ibuprofen 400 mg tablet 400 mg PO TID PRN (Reason: fever or pain) 10 Day
[2021-09-10 11:41] VITALS: BP 142/88; PULSE 98; RESP 16; TEMP 36.8; O2SAT 97
== END 2021-09-10 11:43 | disposition home or self-care (01) ==
LOC: ANHED 11:27
PROVIDERS: Emergency Provider Nurse Practitioner Family; PCP Physician Assistant
DX: M54.50 Low back pain, unspecified (principal); G89.29 Other chronic pain; M19.90 Unspecified osteoarthritis, unspecified site; Z79.82 Long term (current) use of aspirin; Z86.73 Personal history of transient ischemic attack (TIA), and cerebral infarction without residual deficits; F17.210 Nicotine dependence, cigarettes, uncomplicated
CPT/HCPCS: 99283

== ENCOUNTER 2021-10-22 19:16 | Observation (INO) | payer OTHER, SELFPAY ==
--- NOTE | ~2021-10-22 | NM_ITS ---
EXAMINATION: NM lionel stress w perfusion DATE: 10/23/2021 12:43 INDICATION: Chest pain. TECHNIQUE: Rest images were obtained following intravenous administration of 11.7 mCi Tc99m tetrofosm in (Myoview). The patient was infused intravenously with Lexiscan (regadenoson). Then, 34.4 mCi Tc99m tetrofosmin (Myoview) was administered intravenously, and stress images were obtained. Data was kenyetta nstructed into short axis and horizontal and vertical long axis SPECT images. Gated SPECT images were also obtained. COMPARISON: CT abdomen and pelvis 10/26/2020 FINDINGS: There is a large, mild, reversible perfusion defect involving left ventricular apex, the ap ical segments, and mid anteroseptal and inferoseptal segments of left ventricle, consistent with isch emia. There is no segmental wall motion abnormality. Left ventricular ejection fraction measures 60 %. IMPRESSION: 1. Large area of mild ischemia involving the left ventricular apex, the apical segments, and mid ante roseptal and inferoseptal segments of left ventricle. 2. Normal left ventricular ejection fraction measuring 60%. Reviewed, dictated and finalized at location A. IMPRESSION: 1. Large area of mild ischemia involving the left ventricular apex, the apical segments, and mid anteroseptal and inferoseptal segments of left ventricle. 2. Normal left ventricular ejection fraction measuring 60%.
--- NOTE | ~2021-10-22 | XR_ITS ---
EXAMINATION: XR chest 2V Exam Date/Time: 10/22/2021 21:15 CDT HISTORY: MIDSTERNAL chest pain X TODAY, HX LA, HX STROKE, NO LUNG HX Comparison: 04/29/2019. RESULT: Lines, tubes, and devices: None. Lungs and pleura: Clear. Cardiomediastinal silhouette: Stable. Other: No acute osseous or upper abdominal finding. IMPRESSION: No acute cardiopulmonary process. Reviewed, dictated and finalized at location K.
[2021-10-22 19:34] VITALS: BP 152/106; PULSE 104; RESP 14; TEMP 37.1; O2SAT 98
--- NOTE | 2021-10-22 19:34 | ECG_ITS ---
Measurements Intervals [place] Rate: 113 P: 70 SC: 171 QRS: 64 QRSD: 99 T: 62 QT: 323 QTc: 443 Interpretive Statements SINUS TACHYCARDIA POSSIBLE LEFT ATRIAL ENLARGEMENT BORDERLINE ECG COMPARED TO ECG 05/25/2020 13:55:23 HEART RATE HAS INCREASED Electronically Signed On 10-23-2021 12:22:58 CDT by Bhavesh Boyer M.D.
[2021-10-22 19:37] VITALS: PULSE 103; O2SAT 98
--- NOTE | 2021-10-22 19:37 | PC.NURSE ---
patient does have a hx of high BP
[2021-10-22 19:47] LABS: Basophils Percent Auto 0.4 % (0.2-1.2); Eosinophils Percent Auto 0.5 % (0-4.4); Hematocrit 41.4 % (42.0-52.0); Hemoglobin 14.3 g/dL (14.0-18.0); Immature Granulocyte Absolute 0.02 K/mm3 (0.00-0.031); Immature Granulocyte Percent A 0.3 % (0-0.5); Lymphocytes Absolute Auto 1.41 K/mm3 (0.9-3.2); Lymphocytes Percent Auto 18.1 % (18.3-44.2); Mean Corpuscular HGB Conc 34.5 g/dl (32-36); Mean Corpuscular Hemoglobin 32.1 pg (26-34); Mean Corpuscular Volume 92.8 fl (80-100); Mean Platelet Volume 8.8 fl (7.4-10.4); Monocytes Absolute Auto 0.6 K/mm3 (0.1-0.6); Monocytes Percent Auto 7.8 % (2.6-8.5); Neutrophils Absolute Auto 5.7 K/mm3 (1.3-6.7); Neutrophils Percent Auto 72.9 % (45.5-73.1); Platelet Count Result 226 k/mm3 (150-375); Red Blood Count 4.46 M/mm3 (4.6-6.20); Red Cell Distribution Width 13.2 % (11.5-14.5); White Blood Count 7.8 K/mm3 (4.5-10.0)
--- NOTE | 2021-10-22 19:51 | ED.CHESTPAIN ---
HPI - Chest Pain General Chief Complaint: Chest Pain Stated Complaint: CP TODAY Time Seen by Provider: 10/22/21 19:28 History of Present Illness HPI narrative: Patient is a 56-year-old male who presents ER with chest pain. Central. Started off mild and became intense pressure. Associate with diaphoresis. No nausea or vomiting or dyspnea. No exertional discomfort. No radiation to the arm or neck. Reports ND but no PCI. 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 He does take a baby aspirin daily. Symptoms lasted for an hour waxing waning in intensity before they resolved on their own 15 minutes prior to arrival. Related Data Home Medications Medication Instructions Recorded Confirmed aspirin 81 mg tablet,delayed 81 mg PO DAILY 05/24/20 10/22/21 release acetaminophen 500 mg capsule 500 mg PO Q6H PRN Pain (Scale 10/22/21 10/22/21 Score 4-6) Allergies Allergy/AdvReac Type Severity Reaction Status Date / Time steroids AdvReac Intermediate Sweating Uncoded 10/26/20 07:59 Review of Systems Review of Systems: All systems reviewed & are unremarkable except as noted in HPI and below Constitutional: Constitutional: Denies chills and Denies fever(s) Comments: Positive diaphoresis ENT: Denies nasal congestion and Denies sore throat Cardiovascular: Cardiovascular: Reports chest pain, Denies rapid heart rate and Denies radiating jaw, neck or arm pain Respiratory: Respiratory: Denies chest congestion, Denies cough and Denies dyspnea Gastrointestinal: Gastrointestinal: Denies abdominal pain, Denies nausea and Denies vomiting PMF Past Medical History Medical History (Updated 10/23/21 @ 07:40 by Micah Savage MD) Arthritis Bipolar disorder Continuous tobacco abuse Coronary artery disease CVA (cerebral vascular accident) Lumbosacral radiculopathy due to degenerative joint disease of spine Schizophrenia Surgical History Surgical History (Updated 10/22/21 @ 23:23 by Melissa Chaudhari DO) History of colonoscopy with polypectomy (09/2021) History of esophagogastroduodenoscopy (EGD) (09/2021) History of tonsillectomy and adenoidectomy Status post bilateral foot surgery Multiple debridements of the soles of bilateral feet. Family History Family History (Updated 10/22/21 @ 23:13 by Melissa Chaudhari DO) Mother Colon cancer Father Unknown family medical history Social History Social History (Updated 10/22/21 @ 23:23 by Melissa Chaudhari DO) Social History: Patient has smoked up to 3 packs of cigarettes per day but cut back to 0.5 pack per day in 2020. Code status: Full code Surrogate decision maker: Elmira Young () Smoking packs per day: 0.5 Smoking cigarettes per day: 10.0 Years smoked: 37 Smoking pack-years: 18.50 Smoking status: Current every day smoker Tobacco type: cigarettes Second hand tobacco smoke exposure: Yes Alcohol intake: former Alcohol use details: He used to drink a 30 pack per day but quit in 2020. Substance use: current Substance use type: marijuana Other substance usage details: Former use of cocaine and amphetamines. He quit in 2010. Additional living arrangements comments: He is . 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 Gender identity (if verbalized by the patient): Male Spiritual care concerns: No Exam Narrative: GENERAL: Well-appearing, well-nourished, and in no acute distress. HEAD: Normocephalic, atraumatic. EYES: PERRL and EOMI. CHEST: Clear to auscultation. No respiratory distress. HEART: Tachycardic and regular. Normal peripheral pulses. ABDOMEN: Soft, nontender, nondistended. EXTREMITIES: Normal range of motion. No edema. SKIN: Warm, dry, no rash. NEURO: Alert and oriented x3. PSYCH: Normal mood and affect. Course Course Emergency Course: Patient resting comfortably. Given his symptoms and history of chest pain would recommend observation.
[2021-10-22 19:56] LABS: Alanine Aminotransferase 16 U/L (6-50); Albumin Level 4.5 g/dL (3.5-5.1); Alkaline Phosphatase 44 U/L (38-126); Anion Gap 10 mmol/L (8-16); Aspartate Amino Transferase 21 U/L (17-59); Bilirubin,Total 0.5 mg/dL (0.2-1.3); Blood Urea Nitrogen 15 mg/dL (9-20); Calcium 9.2 mg/dL (8.4-10.2); Carbon Dioxide 25 mmol/L (22-30); Chloride 100 mmol/L (98-107); Estimated Glomerular Filt Rate > 60; Glucose 115 mg/dL (65-110); Lipase 63 U/L (23-300); Potassium 3.5 mmol/L (3.4-5.0); Sodium 135 mmol/L (137-145)
[2021-10-22 20:07] LABS: Troponin I < 0.012 ng/mL (0.000-0.034)
[2021-10-22 20:27] LABS: Partial Thromboplastin Time 29.9 SECONDS (22.3-36.8); Prothrombin Time 13.1 Seconds (11.1-14.7)
[2021-10-22] MEDS: SODIUM CHLORIDE 0.9% IV 1,000 ML 999 ML IV CONT (20:40)
[2021-10-22 21:42] VITALS: PULSE 72
[2021-10-22] MEDS: METOPROLOL TARTRATE 12.5 MG TABLET PO (21:42)
[2021-10-22 22:30] LABS: SARS-CoV-2 RNA PCR Negative
[2021-10-22 22:32] VITALS: BMI 19.3
--- NOTE | 2021-10-22 23:03 | PM.IMHP ---
H&P: [facility] History of Present Illness Date/Time: 10/22/21 22:15 Chief Complaint: Chest pain Narrative: 56-year-old male with past medical history of poorly documented coronary artery disease, PTSD, psychiatric illness, tobacco abuse, and GERD who presented to the ER with chest pain. The patient reports that he was driving to a friend's house when he started having generalized chest pain. The pain did not radiate anywhere. Pain was intense pressure sensation. The pain would occur in last for 2-5 minutes each time. Each time the pain came back the pain was worse. With the last episode of pain the patient had some significant diaphoresis. His pain and resolved before he came to the ER. He did not take any medications for the pain. He denied any eliciting or relieving factors. He denied any associated nausea, vomiting, fevers, chills, cough or dyspnea. He reports that he was told he had a mild heart attack in 2011. He initially stated that he was admitted the this facility but then later corrected himself to say that he was admitted at [facility]. He does know that he had a stress test somewhere around that time that was negative. He performed a treadmill stress test at that time without difficulty. He denies any lower extremity swelling, orthopnea, palpitation or paroxysmal nocturnal dyspnea. He denies any dyspepsia, history of heartburn or GERD. He had a EGD on October 04 at which time he was given scripts for possible H pylori. He denies any family history of heart disease. He used to smoke up to 3 packs of cigarettes per day but cut down to half a pack per day last year. He does have a significant drug use history but denies any drug use since 2010. He quit his alcohol abuse 1 year ago. He reported that he quit drinking alcohol as he was gaining a lot of fluid in his abdomen was large. The symptoms resolved after quit drinking. He denies a history of cirrhosis. He does have a history of a CVA due to his drug use in 2008. He denies any residual deficits. He does report chronic low back pain due to DJD. He occasionally has episodes of sciatica with this pain. Review of Systems Review of Systems: 12 systems were reviewed with pertinent positives and negatives per HPI. Except as documented in the HPI, all other systems were reviewed and are negative. [facility] Past Medical History Medical History (Updated 10/22/21 @ 23:29 by Melissa Chaudhari DO) Arthritis Bipolar disorder Continuous tobacco abuse Coronary artery disease CVA (cerebral vascular accident) Lumbosacral radiculopathy due to degenerative joint disease of spine Schizophrenia Surgical History Surgical History (Updated 10/22/21 @ 23:23 by Melissa Chaudhari DO) History of colonoscopy with polypectomy (09/2021) History of esophagogastroduodenoscopy (EGD) (09/2021) History of tonsillectomy and adenoidectomy Status post bilateral foot surgery Multiple debridements of the soles of bilateral feet. Family History Family History (Updated 10/22/21 @ 23:13 by Melissa Chaudhari DO) Mother Colon cancer Father Unknown family medical history Social History Social History (Updated 10/22/21 @ 23:23 by Melissa Chaudhari DO) Social History: Patient has smoked up to 3 packs of cigarettes per day but cut back to 0.5 pack per day in 2020. Code status: Full code Surrogate decision maker: Elmira Young () Smoking packs per day: 0.5 Smoking cigarettes per day: 10.0 Years smoked: 37 Smoking pack-years: 18.50 Smoking status: Current every day smoker Tobacco type: cigarettes Second hand tobacco smoke exposure: Yes Alcohol intake: former Alcohol use details: He used to drink a 30 pack per day but quit in 2020. Substance use: current Substance use type: marijuana Other substance usage details: Former use of cocaine and amphetamines. He quit in 2010. Additional living arrangements comments: He is . Additional occupation/e
--- NOTE | 2021-10-22 23:09 | ADMGEN ---
This patient, Juan Young, was admitted to IMU Room 213-01. Patient/family oriented to hospital policies and general routines including ID bracelet, bed and alarms, visiting hours, pain management, procedures, bathroom and other care routines, personal items, smoking policy, room service/diet, and visiting hours. Information on how to activate the Rapid Response Team has been discussed. Patient/Family are encouraged to report perceived risks to care and to ask questions if they do not understand what they are told or what they should do.
[2021-10-22 23:17] VITALS: BP 134/81; PULSE 89; RESP 14; TEMP 36.9; O2SAT 100
[2021-10-22 23:30] LABS: Troponin I < 0.012 ng/mL (0.000-0.034)
[2021-10-22 23:46] VITALS: PULSE 69
[2021-10-23] VITALS (12 sets, daily range): BP systolic 101–145; BP diastolic 57–84; PULSE 48–86; RESP 12–18; TEMP 36.3–36.9; O2SAT 100
[2021-10-23 03:06] LABS: Troponin I < 0.012 ng/mL (0.000-0.034)
--- NOTE | 2021-10-23 06:57 | EST_ITS ---
Patient Info Name: Juan Young Age: 56 years : 1965 Gender: Male Ht: 63 in Wt: 109 lbs BSA: 1.48 m2 HR: 67 bpm BP: 130 / 89 mmHg Heart Rhythm: Sinus Rhythm Exam Date: 10/23/2021 11:30 AM Exam Location: [facility] Patient Status: Outpatient Admit Date: 10/22/2021 Staff Ordering Physician: Melissa Chaudhari DO Attending Provider: Lesly Mcfarlane PA-C Exercise Technologist: Greer Pena CT Exercise Physician: Bhavesh Boyer MD Exam Type: CA stress lionel w NM Study Info Indications R07.9 - Chest pain, unspecified A regadenoson stress test was performed. Summary 1. No abnormal ST/T wave changes with Lexiscan administration. 2. No arrhythmias were observed during the examination. 3. No chest discomfort with stress test. 4. Please correlate with nuclear medicine images, reported separately. Protocol: Lexiscan Stress ECG Details Stage: REST Duration (min): 1 min : 0 sec HR (bpm): 70 SBP (mmHg): 130 DBP (mmHg): 89 Stage: REST Duration (min): 9 min : 29 sec HR (bpm): 69 SBP (mmHg): 130 DBP (mmHg): 89 Stage: STAGE 1 Duration (min): 1 min : 0 sec HR (bpm): 100 SBP (mmHg): 156 DBP (mmHg): 79 Stage: RECOVERY Duration (min): 1 min : 0 sec HR (bpm): 103 SBP (mmHg): 156 DBP (mmHg): 79 Stage: RECOVERY Duration (min): 2 min : 0 sec HR (bpm): 103 SBP (mmHg): 156 DBP (mmHg): 79 Stage: RECOVERY Duration (min): 3 min : 0 sec HR (bpm): 99 SBP (mmHg): 159 DBP (mmHg): 88 Stage: RECOVERY Duration (min): 3 min : 13 sec HR (bpm): 97 SBP (mmHg): 159 DBP (mmHg): 88 Rest HR: 69 bpm Peak HR: 113 bpm Rest Sys BP: 130 mmHg Peak Sys BP: 159 mmHg Max Pred HR: 164 bpm % Max Pred HR: 69 % Target HR: 139 bpm Max RPP: 17,967 bpm*mmHg BP Response: Normal blood pressure response Termination Reason: Completed protocol Cardiac Symptoms: None Total Time: 1 min : 0 sec Rest Clifford BP: 89 mmHg Peak Clifford BP: 88 mmHg Total Dose: 0.4 mg Resting ECG Normal sinus rhythm - normal ECG. Stress ECG No abnormal ST/T wave changes with Lexiscan administration. Arrhythmias No arrhythmias were observed during the examination. Report Signatures
[2021-10-23] MEDS: ASPIRIN 81 MG ENTERIC TABLET PO (10:50)
[2021-10-23] MEDS: ENOXAPARIN 40 MG/0.4 ML SYRINGE SUB-Q (10:51)
--- NOTE | 2021-10-23 14:55 | PM.IMPN ---
Progress Note: A&P Assessment and Plan (1) Chest pain: Code(s): R07.9 - Chest pain, unspecified Status: Acute Assessment and Plan: Chest pain in patient with reported prior history of coronary artery disease. Patient denies prior cardiac intervention Continue 81 mg aspirin daily Troponin negative x3 Chest pain has resolved Stress test completed today. Lexiscan revealed large area of mild ischemia involving left ventricular apex, the apical segments, and mid anteroseptal and inferoseptal segments of the left ventricle Discussed case with grain farmer, Dr. Boyer. Consult placed to Cardiology. Patient will be made NPO after midnight for cardiac catheterization to be performed tomorrow (2) Cardiac ischemia: Code(s): I25.9 - Chronic ischemic heart disease, unspecified Status: Acute Assessment and Plan: Plan as above (3) Continuous tobacco abuse: Code(s): Z72.0 - Tobacco use Status: Acute Assessment and Plan: Patient continues to smoke 1/2 pack per day. Has decreased from 3 packs per day Educated regarding smoking cessation for 3 minutes. Patient continues to believe that complete tobacco cessation will cause him to . Despite explanation by myself and previous provider, patient continues to hold to this belief. (4) Elevated blood pressure reading: Code(s): R03.0 - Elevated blood-pressure reading, without diagnosis of hypertension Status: Acute Assessment and Plan: The patient had elevated blood pressure reading in the ER associated with some tachycardia. He received 1 dose of metoprol 12.5 mg. Blood pressure has been stable since that time, in fact somewhat soft this afternoon at 101/57 Avoid any further antihypertensives Monitor BP trends closely Subjective Date/time seen: 10/23/21 14:55 Interval history: Date of service: 10/23/2021 Juan Young is a 56 year old male with a history of CAD, tobacco abuse, CVA, schizophrenia, bipolar disorder who is seen in follow-up for chest pain. The patient states he is feeling back to his baseline at this time. His chest pain has resolved entirely. His only complaint is that he is ?starving? as he was NPO for his stress test. He denied arm pain, jaw pain, neck pain, sweats, dizziness, lightheadedness, palpitations, nausea, vomiting. Denies headache. Denies cough. He has no additional concerns. Patient tells me that he has cut down smoking but he cannot quit altogether as he strongly believes this would cause him to . He states people who quit drinking can and I will if I quit. I explained to him that this was not accurate but he continued to state this to be the case. Review of Systems Review of Systems: All systems reviewed & are unremarkable except as noted in HPI and below Exam Narrative: General: thin, chronically ill-appearing 56-year-old male, sitting up in bed, comfortable, NARD Neuro: awake, alert and oriented x4, speech clear, no focal neuro deficits noted HEENMT: normocephalic, atraumatic, EOMI, sclerae anicteric Respiratory: clear to auscultation bilaterally, nonlabored breathing Cardio: regular rate, regular rhythm with S1-S2 Abdomen: nondistended, normoactive bowel sounds, soft, nontender to palpation Extremities: clubbing of fingers, BLE no edema, erythema, or tenderness to palpation, DP pulses 2+ bilaterally Skin: no rashes or lesions, warm and dry Psych: appropriate mood, slightly odd affect, judgment and insight intact Objective Data Vital Signs Vital Signs: Vital Signs - 24 hr 10/22/21 19:34 10/22/21 19:37 10/22/21 19:37 Temperature 98.7 F Pulse Rate 104 H 103 H Respiratory Rate 14 Blood Pressure 152/106 H Pulse Oximetry 98 98 Oxygen Delivery Room Air Room Air 10/22/21 21:42 10/22/21 23:17 10/22/21 23:46 Temperature 98.4 F Pulse Rate 72 89 69 Respiratory Rate 14 Blood Pressure 134/81 Pulse Oximetry 100 Oxygen
--- NOTE | 2021-10-23 15:20 | PM.CNCAR ---
Assessment and Plan Assessment and plan (1) Abnormal stress test: Code(s): R94.39 - Abnormal result of other cardiovascular function study Status: Acute Assessment and Plan: Lexiscan nuclear stress test suggestive of larger mild if reversible ischemia apical, anteroseptal and inferoseptal talley. Explained these findings and implications suggesting significant obstructive underlying CAD which may be causing his chest pain symptoms. Explained the concept of false positive stress test as well, indications for percutaneous intervention and stent implantation, the importance of compliance with follow-up, recommendations and especially antiplatelet medications such as aspirin and or dual antiplatelet therapy if necessary. We discussed role of cluster management, statin, lifestyle modifications and smoking cessation. Patient with adamant he would be compliant with medications and fall recommendations. We discussed risks and benefits and limitations with coronary angiography including but not limited to myocardial infarction, , bleeding, stroke. Patient agrees to proceed with coronary angiography. NPO after midnight. Check lipid panel. Continue aspirin 81 mg daily for now. Recommendation to follow-up post angiography. (2) Chest pain: Qualifiers: Chest pain type: other chest pain Qualified Code(s): R07.89 - Other chest pain Code(s): R07.9 - Chest pain, unspecified Status: Acute Assessment and Plan: Somewhat atypical, ruled out for myocardial infarction negative enzymes. However, abnormal stress test as above. Invasive angiography has been recommended. Patient agrees. (3) Continuous tobacco abuse: Code(s): Z72.0 - Tobacco use Status: Acute Assessment and Plan: Immediate and absolute smoking cessation counseling performed. (4) GERD (gastroesophageal reflux disease): Code(s): K21.9 - Gastro-esophageal reflux disease without esophagitis Status: Acute Assessment and Plan: Per primary service. (5) History of drug dependence/abuse: Code(s): F19.21 - Other psychoactive substance dependence, in remission Status: Acute Assessment and Plan: Patient states he has quit using alcohol and illicit substances. History of Present Illness History of Present Illness Consult date/time: Date of service: 10/23/21 15:20 Requesting physician: Lesly Mcfarlane PA-C Consult reason: chest pain and Other (Abnormal stress test) Reason For Visit: Chest Pain Narrative: Patient is a 56-year-old male with a past medical history significant for psychiatric illness including bipolar disorder, PTSD, schizophrenia, GERD, tobacco abuse, history of polysubstance abuse, possible CAD presents emergency department complaints of chest pain. Patient has had 3 admissions recently for chest pain but on this occasion states chest pain began while he was driving to a friend's house. He described as a fairly severe pressure-like sensation minimal chest lasting several minutes at a time but then would resolve. A kept returning and progressed with associated diaphoresis and so he presented to the ER. He was pain-free upon presentation and has not experienced recurrence. He has ruled out for myocardial infarction negative serial cardiac enzymes. He he denies known history of CAD but states he had a ?mild heart attack? where he describes he underwent a stress test and was told everything was okay. He underwent Lexiscan stress test earlier today with normal ECG response but perfusion imaging revealed a large area of mild ischemia involving the left ventricular apex all apical segments the mid anterior inferoseptal segments without associated wall motion abnormality EF 60%. He denies bright red blood per rectum, melena, near-syncope or syncope. Denies palpitation. He admits he has has been under great deal of stress and wondered if anxiety may be causing chest pain. He
[2021-10-24] VITALS (14 sets, daily range): BP systolic 108–158; BP diastolic 72–87; PULSE 44–69; RESP 12–16; TEMP 36.4–36.9; O2SAT 98–100
[2021-10-24 06:13] LABS: Hematocrit 41.9 % (42.0-52.0); Hemoglobin 13.9 g/dL (14.0-18.0); Mean Corpuscular HGB Conc 33.2 g/dl (32-36); Mean Corpuscular Volume 96.5 fl (80-100); Mean Platelet Volume 9.1 fl (7.4-10.4); Platelet Count Result 192 k/mm3 (150-375); Red Blood Count 4.34 M/mm3 (4.6-6.20); Red Cell Distribution Width 13.2 % (11.5-14.5); White Blood Count 4.7 K/mm3 (4.5-10.0)
[2021-10-24 06:27] LABS: Anion Gap 6 mmol/L (8-16); Blood Urea Nitrogen 16 mg/dL (9-20); Calcium 8.7 mg/dL (8.4-10.2); Carbon Dioxide 26 mmol/L (22-30); Chloride 103 mmol/L (98-107); Cholesterol 177 mg/dL (0-200); Estimated CRCL calculation 63 ml/min; Estimated Glomerular Filt Rate > 60; Glucose 97 mg/dL (65-110); HDL Direct 42 mg/dL; Potassium 4.2 mmol/L (3.4-5.0); Sodium 135 mmol/L (137-145); Triglycerides 77 mg/dL (<150)
[2021-10-24 06:39] LABS: LDL Cholesterol Direct 111 mg/dL
--- NOTE | 2021-10-24 12:34 | WPDHPUPDATE1 ---
History and Physical Update Update Date/Time: 10/24/21 12:34 History and Physical has been reviewed, including an updated exam of the patient. There are NO changes in the patient's condition. Risks, benefits, and alternatives have been discussed and questions answered. Patient agrees to proceed with procedure.
--- NOTE | 2021-10-24 12:35 | WPDMODSED ---
Moderate Sedation Note-Pt Data Patient Data Diagnosis: chest pain Present Complaint: recurrent chest Procedure to be performed/Plan: coronary angiogram with possible intervention Allergies Allergy/AdvReac Type Severity Reaction Status Date / Time steroids AdvReac Intermediate Sweating Uncoded 10/26/20 07:59 Home Medications Medication Instructions Recorded Confirmed Type aspirin 81 mg tablet,delayed 81 mg PO DAILY 05/24/20 10/22/21 History release acetaminophen 500 mg capsule 500 mg PO Q6H PRN Pain (Scale 10/22/21 10/22/21 History Score 4-6) Current Medications: Active Medications Acetaminophen (Acetaminophen 325 Mg Tablet) 650 mg PO Q4H PRN PRN Reason: Mild Pain (1-3) or Fever Hydrocodone Bitart/Acetaminophen (Hydrocodone/Acetaminophen (*Crx) 5-325 Mg Tablet) 1 tab PO Q4H PRN PRN Reason: Pain Rated 7-10 Aspirin (Aspirin 81 Mg Enteric Tablet) 81 mg PO DAILY [facility] Last Admin: 10/23/21 10:50 Dose: 81 mg Enoxaparin Sodium (Enoxaparin 40 Mg/0.4 Ml Syringe) 40 mg SUB-Q DAILY [facility] Last Admin: 10/23/21 10:51 Dose: 40 mg Morphine Sulfate (Morphine Sulfate (*Crx) 4 Mg/Ml Inj) 4 mg IV PUSH Q2H PRN PRN Reason: Pain Rated 7-10 Nitroglycerin (Nitroglycerin Sl 0.4 Mg Tablet) 0.4 mg SUBLINGUAL Q5MIN PRN PRN Reason: Chest Pain Ondansetron HCl (Ondansetron Inj 4 Mg/2 Ml Vial) 4 mg IV PUSH Q4H PRN PRN Reason: Nausea Sedation/Anesthesia: No previous sedation/anesthesia problems (including family history). FORMERLY [facility], [facility] Past Medical History Medical History Arthritis Bipolar disorder Continuous tobacco abuse Coronary artery disease CVA (cerebral vascular accident) Lumbosacral radiculopathy due to degenerative joint disease of spine Schizophrenia Surgical History Surgical History History of colonoscopy with polypectomy (09/2021) History of esophagogastroduodenoscopy (EGD) (09/2021) History of tonsillectomy and adenoidectomy Status post bilateral foot surgery Multiple debridements of the soles of bilateral feet. Family History Family History Mother Colon cancer Father Unknown family medical history Social History Social History Social History: Patient has smoked up to 3 packs of cigarettes per day but cut back to 0.5 pack per day in 2020. Code status: Full code Surrogate decision maker: Elmira Young () Smoking packs per day: 0.5 Smoking cigarettes per day: 10.0 Years smoked: 37 Smoking pack-years: 18.50 Smoking status: Current every day smoker Tobacco type: cigarettes Second hand tobacco smoke exposure: Yes Alcohol intake: former Alcohol use details: He used to drink a 30 pack per day but quit in 2020. Substance use: current Substance use type: marijuana Other substance usage details: Former use of cocaine and amphetamines. He quit in 2010. Additional living arrangements comments: He is . 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 Gender identity (if verbalized by the patient): Male Spiritual care concerns: No Mod Sed Physical Exam Physical Exam Pre Procedural Exam: Normal: Appearance, Eyes, Ears, Nose, Neck, Throat, Airway, Lungs, Heart Size, Heart Rate, Heart Rhythm, Neuro Exam, Abdomen, Liver, Kidneys, Spleen, Breasts, Genitalia, Extremities and Skin Hours since solid foods: 8 Hours since liquid intake: 8 Mallampati Classification: class 1 Internal Medicine - PN: Obj Da Vital Signs Vital Signs: Vital Signs - 24 hr 10/23/21 16:00 10/23/21 14:00 10/23/21 16:00 Temperature 36.9 C Pulse Rate 71 69 62 Respiratory Rate 16 Blood Pressure 145/84 H Pulse Oximetry 100 Oxygen Delivery 10/23/21 18:00 10/23/21 20:00 10/23/21 20:00 Temperatur
--- NOTE | 2021-10-24 12:58 | WPDCARDPROC ---
Cardiac Cath Procedure Note Date of procedure:: 10/24/21 Performing physician:: Lakesha Xiao MD date of service 10/24/2021 Indication:: chest pain Brief clinical history:: S is 56-year-old patient past history of chronic abuse who presents To the hospital with recurrent episodes of chest pain. Multiple visits to ER. underwent stress test and shows large area of ischemia in the anterior wall. Procedure Procedure performed:: 1-Moderate sedation that started at 12:40 p.m. and ended at 12:54 p.m. a total duration 14 minutes using 2mg of Versed and 50mcg fentanyl. The registered nurse was milo zhou. 2-Selective left and right coronary angiogram. 3-Left heart catheterization with measurement of LVEDP and measurement of gradient across aortic valve. 3- LV angiogram. 4-Right common femoral arterial angiogram. 5-Deployment of 6 [place] Angio-Seal. Sedation/Medication given:: Moderate sedation. Access site:: Right common femoral artery. Estimated blood loss:: 10cc Procedure note:: After informed consent patient was brought in to laborer operator with the was draped and prepped in usual manner. Moderate sedation was given and the right groin was infiltrated using 1% lidocaine. Five [place] sheath was obtained using micropuncture needle and the modified Seldinger technique. Selective left coronary angiogram was done using JL4 catheter with the tip of the catheter placed in the left main coronary artery. Selective right coronary angiogram was done using JR4 catheter with the tip of the catheter placed to the right coronary artery. After that 5 [place] pigtail catheter was advanced across the aortic valve into the left ventricle with measurement of LVEDP and measurement of gradient across aortic valve. LV angiogram done as Wellt. Right common femoral arterial angiogram was done. Findings:: 1- left coronary artery is a large artery that divides into large LAD, large circumflex artery. Left main is free of disease. 2- left anterior descending artery is a large artery that runs and wraps around the apex. Free of disease. Large diagonal branch proximally free of disease 3- leftcircumflex artery is a large artery free of disease 4- right coronary artery is large and dominant and there is 50% at the junction of the mid to distal segment 5- LVEDP was 12 mm Hgand no gradient across aortic valve. 6- LV angiogram overall shows normal LV systolic function with estimated ejection fraction 50% 6- opening arterial pressure was 140/80 and closing pressure was 130/70 7- right femoral artery angiogram shows no significant disease in the right common femoral artery. Conclusion:: 50% of the junction of to distal RCA otherwise no CAD. - False-positive stress test Assessment and Plan Assessment and plan (1) Cardiac ischemia: Code(s): I25.9 - Chronic ischemic heart disease, unspecified Status: Acute Plan - tobacco cessation. aggressive risk factor modification for CAD
[2021-10-24] MEDS: ASPIRIN 81 MG ENTERIC TABLET PO (14:46)
--- NOTE | 2021-10-24 15:16 | PM.DS ---
DS: Admitting Diagnosis Discharge Date 10/24/2021 Admitting Diagnosis Chest pain DS: Discharge Diagnosis Discharge Diagnosis (1) Chest pain: Qualifiers: Chest pain type: other chest pain Qualified Code(s): R07.89 - Other chest pain Code(s): R07.9 - Chest pain, unspecified Status: Acute Assessment and Plan: Chest pain in patient with reported prior history of coronary artery disease. Patient denied prior cardiac intervention Troponin negative x3 Chest pain resolved Stress test completed 10/23/21. Lexiscan revealed large area of mild ischemia involving left ventricular apex, the apical segments, and mid anteroseptal and inferoseptal segments of the left ventricle Patient seen in consultation by cardiology Had cardiac catheterization on 10/24/21 which showed no significant coronary disease. Findings felt to be false-positive stress test He will follow up with Cardiology outpatient in 2 weeks Continue aspirin. Started atorvastatin 20 mg daily (2) Continuous tobacco abuse: Code(s): Z72.0 - Tobacco use Status: Acute Assessment and Plan: Patient continues to smoke 1/2 pack per day. Has decreased from 3 packs per day Educated regarding smoking cessation for 4 minutes. Patient continues to believe that complete tobacco cessation will cause him to . Despite explanation by myself and previous provider, patient continues to hold to this belief. He does not plan to quit smoking (3) Elevated blood pressure reading: Code(s): R03.0 - Elevated blood-pressure reading, without diagnosis of hypertension Status: Acute Assessment and Plan: Blood pressures were elevated during admission Started on low dose lisinopril 5 mg daily for better blood pressure control in light of cardiac history Follow up with PCP in 1 week for BP monitoring DS: Summary Hospital Course Hospital Course: Date of admission: 10/22/2021 Date of discharge: 10/24/2021 Juan Young is a 56 year old male with a history of CAD, tobacco abuse, CVA, schizophrenia, bipolar disorder?who presented to the emergency department on 10/22/2021 with complaints of central, substernal, nonradiating chest pain that reportedly lasted 1 hour and resolved just prior to presentation. In the ED, his BP was elevated at 150 2/106 and he was mildly tachycardic with additional vital signs stable, laboratory workup unremarkable, troponin negative, EKG showed sinus tachycardia. He was admitted to the hospitalist service for further evaluation management. Troponins were negative and therefore follow-up stress test was ordered which did show large area of mild ischemia. Cardiology was consulted following these findings and patient underwent cardiac catheterization which did not show significant coronary disease. Patient's medical therapy was optimized with addition of statin and CHARU-inhibitor and he will continue with daily aspirin. He will follow-up with cardiology outpatient. The patient was feeling back to his usual state of health and was eager for discharge home. Given improvement, he was determined to no longer require inpatient care and was discharged in hemodynamically stable condition on 10/24/2021. Discussed with the patient worrisome signs and symptoms for which to return and he was educated on his medications. Despite several attempts to discuss smoking cessation, patient continues to make it clear that he is not interested in smoking cessation. Time spent discussing smoking cessation with patient: 3 to 10 minutes Status at Discharge Functional status at discharge: independent ambulation Overall status at discharge: patient is back to baseline Time Spent with Patient Time attestation: Total time spent providing and/or coordinating discharge services: 41 minutes Time spent: Greater than 30 minutes Exam Narrative: General: thin, chronically ill-appearing 56-year-old male, sitting up in bed, comfortable, NARD
[2021-10-24] MEDS: ACETAMINOPHEN 325 MG TABLET 650 MG PO (16:18)
== END 2021-10-24 18:06 | disposition home or self-care (01) ==
LOC: ANHED 19:36 → ANHIMU 22:02
PROVIDERS: Internal Medicine Cardiovascular Disease; Admitting Provider Internal Medicine; Emergency Provider Emergency Medicine; PCP Physician Assistant; Visit Provider Physician Assistant
PROC: 4A023N7 Measurement of Cardiac Sampling and Pressure, Left Heart, Percutaneous Approach (ICD-10-PCS; CPT 93452; principal; 2021-10-24 12:00)
DX: R07.89 Other chest pain (principal); F17.210 Nicotine dependence, cigarettes, uncomplicated; R03.0 Elevated blood-pressure reading, without diagnosis of hypertension; R00.0 Tachycardia, unspecified; R61 Generalized hyperhidrosis; I25.9 Chronic ischemic heart disease, unspecified; K21.9 Gastro-esophageal reflux disease without esophagitis; R94.39 Abnormal result of other cardiovascular function study; F31.9 Bipolar disorder, unspecified; I25.10 Atherosclerotic heart disease of native coronary artery without angina pectoris; Z86.73 Personal history of transient ischemic attack (TIA), and cerebral infarction without residual deficits; Z20.822 Contact with and (suspected) exposure to COVID-19; M47.27 Other spondylosis with radiculopathy, lumbosacral region; F20.9 Schizophrenia, unspecified; F43.10 Post-traumatic stress disorder, unspecified; F12.90 Cannabis use, unspecified, uncomplicated; F15.11 Other stimulant abuse, in remission; F14.11 Cocaine abuse, in remission; Z79.82 Long term (current) use of aspirin; Z79.1 Long term (current) use of non-steroidal anti-inflammatories (NSAID); Z79.52 Long term (current) use of systemic steroids; Z79.891 Long term (current) use of opiate analgesic; Z79.899 Other long term (current) drug therapy
CPT/HCPCS: 36415; 71046; 78452; 80048; 80053; 80061; 83690; 84484; 85025; 85027; 85610; 85730; 93005; 93017; 93458; 96360; 96372; 99285; A9270; A9502; C1760; C1887; C1894; C9803; G0269; G0378; G0379; J1644; J1650; J2250; J2785; J3010; J7030; U0003; U0005

== ENCOUNTER 2021-11-22 13:06 | Emergency (ER) | payer OTHER, SELFPAY ==
--- NOTE | ~2021-11-22 | US_ITS ---
EXAMINATION: US arterial duplex LE RT DATE: 11/22/2021 15:58 INDICATION: Pelvic pain after cardiac catheterization. TECHNIQUE: Multiple grayscale and color Doppler and pulsed Doppler images of the right lower extremit y arteries were obtained. COMPARISON: None. FINDINGS: There is no pseudoaneurysm. Peak systolic velocity is 121 cm/s in right common femoral artery, 75 cm/ s in the femoral artery, 100 cm/s in superficial femoral artery, 70 cm/s in popliteal artery, 69 cm/s in anterior tibial artery, 69 cm/s in posterior tibial artery, 47 cm/s in peroneal artery, and 55 cm /s in dorsalis pedis. IMPRESSION: 1. No pseudoaneurysm. 2. No significant arterial occlusive disease in right lower extremity. Reviewed, dictated and finalized at location A.
[2021-11-22 13:15] VITALS: BP 151/94; PULSE 113; RESP 16; TEMP 36.9; O2SAT 100
--- NOTE | 2021-11-22 14:14 | ED.EXTPRO ---
HPI - Extremity Problem General Chief complaint: Extremity Problem,Nontraumatic <CRYSTAL Corrigan Last Filed: 11/22/21 18:42> Stated complaint: leg pain <CRYSTAL Corrigan Last Filed: 11/22/21 18:42> Time Seen by Provider: 11/22/21 14:07 <CRYSTAL Corrigan Last Filed: 11/22/21 18:42> History of Present Illness HPI Narrative: Patient is a 56-year-old male here for evaluation of pain in his right groin over the past month. Patient states that he had a cardiac catheterization about a month ago and has had pain ever since that the femoral access site. He was told to follow-up with his primary care provider 2 weeks after the procedure, but expresses frustration is that he is not unable to contact him. He is also unsure what pain medicine he can take at home; he was told he cannot take ibuprofen due to gastric ulcers. He denies any fevers, chills, nausea, vomiting, weakness or lightheadedness. <CRYSTAL Corrigan Last Filed: 11/22/21 18:42> Related Data Home medications: Home Medications Medication Instructions Recorded Confirmed aspirin 81 mg tablet,delayed 81 mg PO DAILY 05/24/20 10/22/21 release acetaminophen 500 mg capsule 500 mg PO Q6H PRN Pain (Scale 10/22/21 10/22/21 Score 4-6) <CRYSTAL Corrigan Last Filed: 11/22/21 18:42> Allergies/Adverse reactions: Allergies Allergy/AdvReac Type Severity Reaction Status Date / Time steroids AdvReac Intermediate Sweating Uncoded 10/26/20 07:59 <CRYSTAL Corrigan Last Filed: 11/22/21 18:42> Review of Systems Review of Systems: Gen: Denies fevers or chills Eyes: Denies eye pain or visual change ENT: Denies congestion Respiratory: Denies shortness of breath or cough CV: Denies chest pain or palpitations GI: Denies abdominal pain nausea, emesis or diarrhea : reports pain at right groin. Denies burning, urgency, frequency or hematuria Musculoskeletal: Denies back pain or muscle pain Neuro: Denies numbness, tingling, weakness or focal weakness Skin: Denies rash Except as documented, all other systems reviewed and negative <Hannah Oliveros PA-C - Last Filed: 11/22/21 18:42> [facility], [facility] Past Medical History Medical History: Medical History Arthritis Bipolar disorder Continuous tobacco abuse Coronary artery disease CVA (cerebral vascular accident) Lumbosacral radiculopathy due to degenerative joint disease of spine Schizophrenia <Hannah Oliveros PA-C - Last Filed: 11/22/21 18:42> Surgical History Surgical History: Surgical History History of colonoscopy with polypectomy (09/2021) History of esophagogastroduodenoscopy (EGD) (09/2021) History of tonsillectomy and adenoidectomy Status post bilateral foot surgery Multiple debridements of the soles of bilateral feet. <Hannah Oliveros PA-C - Last Filed: 11/22/21 18:42> Family History Family History: Family History Mother Colon cancer Father Unknown family medical history <Hnanah Oliveros PA-C - Last Filed: 11/22/21 18:42> Social History Social History: Social History Social History: Patient has smoked up to 3 packs of cigarettes per day but cut back to 0.5 pack per day in 2020. Code status: Full code Surrogate decision maker: Elmira Young () Smoking packs per day: 0.5 Smoking cigarettes per day: 10.0 Years smoked: 37 Smoking pack-years: 18.50 Smoking status: Current every day smoker Tobacco type: cigarettes Second hand tobacco smoke exposure: Yes Alcohol intake: former Alcohol use details: He used to drink a 30 pack per day but quit in 2020. Substance use: current Substance use type: ma
[2021-11-22] MEDS: HYDROcodone/acetaminophen (*CRX) 5-325 MG TABLET 1 TAB PO (14:31)
[2021-11-22 14:55] LABS: Basophils Percent Auto 0.8 % (0.2-1.2); Eosinophils Absolute Auto 0.1 K/mm3 (0-0.3); Eosinophils Percent Auto 1.9 % (0-4.4); Hematocrit 37.1 % (42.0-52.0); Hemoglobin 12.6 g/dL (14.0-18.0); Immature Granulocyte Absolute 0.02 K/mm3 (0.00-0.031); Immature Granulocyte Percent A 0.4 % (0-0.5); Lymphocytes Absolute Auto 1.68 K/mm3 (0.9-3.2); Lymphocytes Percent Auto 32.2 % (18.3-44.2); Mean Corpuscular Hemoglobin 31.7 pg (26-34); Mean Corpuscular Volume 93.5 fl (80-100); Mean Platelet Volume 8.4 fl (7.4-10.4); Monocytes Absolute Auto 0.4 K/mm3 (0.1-0.6); Monocytes Percent Auto 7.3 % (2.6-8.5); Neutrophils Percent Auto 57.4 % (45.5-73.1); Platelet Count Result 184 k/mm3 (150-375); Red Blood Count 3.97 M/mm3 (4.6-6.20); Red Cell Distribution Width 13.1 % (11.5-14.5); White Blood Count 5.2 K/mm3 (4.5-10.0)
[2021-11-22 15:01] VITALS: TEMP 36.9
[2021-11-22 15:05] LABS: Alanine Aminotransferase 10 U/L (6-50); Alkaline Phosphatase 41 U/L (38-126); Anion Gap 9 mmol/L (8-16); Aspartate Amino Transferase 22 U/L (17-59); Bilirubin,Total 0.3 mg/dL (0.2-1.3); Blood Urea Nitrogen 11 mg/dL (9-20); Calcium 8.5 mg/dL (8.4-10.2); Carbon Dioxide 25 mmol/L (22-30); Chloride 105 mmol/L (98-107); Estimated CRCL calculation 74 ml/min; Estimated Glomerular Filt Rate > 60; Glucose 80 mg/dL (65-110); Potassium 3.5 mmol/L (3.4-5.0); Sodium 139 mmol/L (137-145)
[2021-11-22 15:52] VITALS: BP 124/85; PULSE 88; RESP 16; O2SAT 99
== END 2021-11-22 16:44 | disposition home or self-care (01) ==
PROVIDERS: Physician Assistant; Emergency Provider Emergency Medicine; PCP Physician Assistant
DX: R10.31 Right lower quadrant pain (principal); F17.210 Nicotine dependence, cigarettes, uncomplicated; M19.90 Unspecified osteoarthritis, unspecified site; I25.10 Atherosclerotic heart disease of native coronary artery without angina pectoris; Z86.73 Personal history of transient ischemic attack (TIA), and cerebral infarction without residual deficits; Z79.82 Long term (current) use of aspirin
CPT/HCPCS: 36415; 80053; 85025; 93926; 99283; A9270

== ENCOUNTER 2022-02-15 13:29 | Emergency (ER) | payer OTHER, SELFPAY ==
[2022-02-15] VITALS (16 sets, daily range): BP systolic 129–162; BP diastolic 81–103; PULSE 61–93; RESP 9–18; TEMP 36.9; O2SAT 99–100
--- NOTE | ~2022-02-15 | XR_ITS ---
XR chest 1V portable DATE: 02/15/2022 13:51 INDICATION: Shortness of breath TECHNIQUE: Portable AP chest on 02/15/2022 at 1347 hours COMPARISON: 10/22/2021 2 view chest FINDINGS: Normal heart size. No hilar or mediastinal enlargement. No pulmonary infiltrate or consolid ation, pleural effusion or pulmonary vascular congestion or pneumothorax. Mild thoracic levoscoliosis. Mild degenerative spurring of the thoracic spine. IMPRESSION: No active cardiopulmonary disease Reviewed, dictated and finalized at location A. D CROP FARMWORKER
--- NOTE | 2022-02-15 13:39 | ECG_ITS ---
Measurements Intervals [place]appen Rate: 83 P: 69 DE: 166 QRS: 64 QRSD: 104 T: 69 QT: 361 QTc: 425 Interpretive Statements SINUS RHYTHM NORMAL ECG COMPARED TO ECG 10/22/2021 19:26:33 SINUS RHYTHM NOW PRESENT Electronically Signed On 02-15-2022 21:53:24 GRANT WRITER by Felipe Newell D.O.
--- NOTE | 2022-02-15 13:57 | ED.SOB ---
HPI - SOB/Dyspnea General Chief Complaint: Shortness of Breath/Dyspnea Stated Complaint: I cant breathe Time Seen by Provider: 02/15/22 13:46 History of Present Illness HPI Narrative: Patient is a 56-year-old male who presents ER with sinus congestion. Ongoing over the last couple days. Makes even harder to breathe when he lays down. No chest pain or pressure. No exertional shortness of breath. No postnasal drip or productive cough. Denies fevers or chills or sweats. No alleviating factors. Related Data Home Medications Medication Instructions Recorded Confirmed aspirin 81 mg tablet,delayed 81 mg PO DAILY 05/24/20 10/22/21 release acetaminophen 500 mg capsule 500 mg PO Q6H PRN Pain (Scale 10/22/21 10/22/21 Score 4-6) Allergies Allergy/AdvReac Type Severity Reaction Status Date / Time steroids AdvReac Intermediate Sweating Uncoded 10/26/20 07:59 Review of Systems Review of Systems: All systems reviewed & are unremarkable except as noted in HPI and below Constitutional: Constitutional: Denies chills, Denies fatigue and Denies fever(s) ENT: Reports nasal congestion and Denies sore throat Cardiovascular: Cardiovascular: Denies chest pain, Denies rapid heart rate and Denies radiating jaw, neck or arm pain Respiratory: Respiratory: Denies chest congestion, Denies cough and Denies dyspnea Gastrointestinal: Gastrointestinal: Denies abdominal pain, Denies nausea and Denies vomiting PMFSH Past Medical History Medical History Arthritis Bipolar disorder Continuous tobacco abuse Coronary artery disease CVA (cerebral vascular accident) Lumbosacral radiculopathy due to degenerative joint disease of spine Schizophrenia Surgical History Surgical History History of colonoscopy with polypectomy (09/2021) History of esophagogastroduodenoscopy (EGD) (09/2021) History of tonsillectomy and adenoidectomy Status post bilateral foot surgery Multiple debridements of the soles of bilateral feet. Family History Family History Mother Colon cancer Father Unknown family medical history Social History Social History Social History: Patient has smoked up to 3 packs of cigarettes per day but cut back to 0.5 pack per day in 2020. Code status: Full code Surrogate decision maker: Elmira Young () Smoking packs per day: 0.5 Smoking cigarettes per day: 10.0 Years smoked: 37 Smoking pack-years: 18.50 Smoking status: Current every day smoker Tobacco type: cigarettes Second hand tobacco smoke exposure: Yes Alcohol intake: former Alcohol use details: He used to drink a 30 pack per day but quit in 2020. Substance use: current Substance use type: marijuana Other substance usage details: Former use of cocaine and amphetamines. He quit in 2010. Additional living arrangements comments: He is . 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 Gender identity (if verbalized by the patient): Male Spiritual care concerns: No Exam Narrative: GENERAL: Well-appearing, well-nourished, and in no acute distress. HEAD: Normocephalic, atraumatic. EYES: PERRL and EOMI. CHEST: Clear to auscultation. No respiratory distress. HEART: Regular rate and rhythm. Normal peripheral pulses. ABDOMEN: Soft, nontender, nondistended. EXTREMITIES: Normal range of motion. No edema. SKIN: Warm, dry, no rash. NEURO: Alert and oriented x3. PSYCH: Normal mood and affect. Course Course Emergency Course: Patient resting comfortably. Informed of results. Discharge home. Vital Signs Vital signs: Vital Signs Temperature 98.5 F 02/15/22 13:44 Pulse Rate 82 02/15/22 13:44 Respiratory Rate 18 02/15/22 13:
[2022-02-15 14:09] LABS: Basophils Percent Auto 0.7 % (0.2-1.2); Eosinophils Absolute Auto 0.1 K/mm3 (0-0.3); Eosinophils Percent Auto 2.3 % (0-4.4); Hematocrit 49.8 % (42.0-52.0); Hemoglobin 16.8 g/dL (14.0-18.0); Immature Granulocyte Absolute 0.01 K/mm3 (0.00-0.031); Immature Granulocyte Percent A 0.2 % (0-0.5); Mean Corpuscular HGB Conc 33.7 g/dl (32-36); Mean Corpuscular Hemoglobin 31.9 pg (26-34); Mean Corpuscular Volume 94.7 fl (80-100); Mean Platelet Volume 8.8 fl (7.4-10.4); Monocytes Absolute Auto 0.4 K/mm3 (0.1-0.6); Monocytes Percent Auto 7.2 % (2.6-8.5); Neutrophils Absolute Auto 3.6 K/mm3 (1.3-6.7); Neutrophils Percent Auto 58.6 % (45.5-73.1); Platelet Count Result 231 k/mm3 (150-375); Red Blood Count 5.26 M/mm3 (4.6-6.20); Red Cell Distribution Width 12.9 % (11.5-14.5); White Blood Count 6.1 K/mm3 (4.5-10.0)
[2022-02-15 14:19] LABS: Alanine Aminotransferase 16 U/L (6-50); Albumin Level 4.6 g/dL (3.5-5.1); Alkaline Phosphatase 61 U/L (38-126); Anion Gap 7 mmol/L (8-16); Aspartate Amino Transferase 24 U/L (17-59); Bilirubin,Total 0.6 mg/dL (0.2-1.3); Blood Urea Nitrogen 11 mg/dL (9-20); Carbon Dioxide 28 mmol/L (22-30); Chloride 103 mmol/L (98-107); Estimated CRCL calculation 88 ml/min; Estimated Glomerular Filt Rate > 60; Glucose 90 mg/dL (65-110); Potassium 3.9 mmol/L (3.4-5.0); Sodium 138 mmol/L (137-145)
[2022-02-15 14:43] LABS: Influenza A QL RT-PCR Negative (Negative); Influenza B QL RT-PCR Negative (Negative); SARS-CoV-2 RNA PCR Negative
== END 2022-02-15 18:08 | disposition home or self-care (01) ==
PROVIDERS: Emergency Provider Emergency Medicine; PCP Physician Assistant
DX: J06.9 Acute upper respiratory infection, unspecified (principal); Z20.822 Contact with and (suspected) exposure to COVID-19; I25.10 Atherosclerotic heart disease of native coronary artery without angina pectoris; M19.90 Unspecified osteoarthritis, unspecified site; Z86.73 Personal history of transient ischemic attack (TIA), and cerebral infarction without residual deficits; F17.210 Nicotine dependence, cigarettes, uncomplicated; Z79.82 Long term (current) use of aspirin
CPT/HCPCS: 36415; 71045; 80053; 85025; 87636; 93005; 99284

== ENCOUNTER 2022-03-28 07:29 | Emergency (ER) | payer OTHER, SELFPAY ==
--- NOTE | ~2022-03-28 | XR_ITS ---
EXAMINATION: XR chest 1V portable INDICATION: Chest pain while coughing TECHNIQUE: Portable AP chest at 0755 hours COMPARISON: 02/15/2022 FINDINGS: The lungs are free of acute opacities. No pleural effusion or pneumothorax. The cardiomedia stinal silhouette is normal. The visualized bones and soft tissues are unremarkable. IMPRESSION: 1. No acute cardiopulmonary abnormality. Reviewed, dictated and finalized at location A. LFURIZER MACHINE
--- NOTE | 2022-03-28 07:30 | ECG_ITS ---
Measurements Intervals [place] Rate: 86 P: 66 AR: 169 QRS: 61 QRSD: 99 T: 63 QT: 353 QTc: 424 Interpretive Statements SINUS RHYTHM NORMAL ECG COMPARED TO ECG 02/15/2022 13:50:09 NO SIGNIFICANT CHANGES Electronically Signed On 03-28-2022 8:08:27 COMMERCIAL LINES ASSISTANT by Felipe Newell D.O.
[2022-03-28 07:31] VITALS: BP 134/87; PULSE 88; RESP 14; TEMP 36.6; O2SAT 99
--- NOTE | 2022-03-28 07:37 | ED.CHESTPAIN ---
HPI - Chest Pain General Chief Complaint: Chest Pain Stated Complaint: chest congestion and chest pain Time Seen by Provider: 03/28/22 07:32 Source: patient, family and EMS Mode of arrival: EMS Limitations: no limitations History of Present Illness HPI narrative: 56 years old white male came to the emergency room from work by ambulance complaining of head cold started 2 days ago, nasal and postnasal congestion and discharge, went down to his chest, productive cough, chest pain with coughing. Patient feels tenderness across the chest which is worse with deep breathing and coughing. Patient reports half of the coworkers have similar symptoms. Patient on baby aspirin once a day, no other medications, history of tobacco use. Does not drink or uses drugs. Related Data Home Medications Medication Instructions Recorded Confirmed aspirin 81 mg tablet,delayed 81 mg PO DAILY 05/24/20 10/22/21 release acetaminophen 500 mg capsule 500 mg PO Q6H PRN Pain (Scale 10/22/21 10/22/21 Score 4-6) Allergies Allergy/AdvReac Type Severity Reaction Status Date / Time steroids AdvReac Intermediate Sweating Uncoded 10/26/20 07:59 Review of Systems Review of Systems: All systems reviewed & are unremarkable except as noted in HPI and below PMFSH Past Medical History Medical History Arthritis Bipolar disorder Continuous tobacco abuse Coronary artery disease CVA (cerebral vascular accident) Lumbosacral radiculopathy due to degenerative joint disease of spine Schizophrenia Surgical History Surgical History History of colonoscopy with polypectomy (09/2021) History of esophagogastroduodenoscopy (EGD) (09/2021) History of tonsillectomy and adenoidectomy Status post bilateral foot surgery Multiple debridements of the soles of bilateral feet. Family History Family History Mother Colon cancer Father Unknown family medical history Social History Social History Social History: Patient has smoked up to 3 packs of cigarettes per day but cut back to 0.5 pack per day in 2020. Code status: Full code Surrogate decision maker: Elmira Young () Smoking packs per day: 0.5 Smoking cigarettes per day: 10.0 Years smoked: 37 Smoking pack-years: 18.50 Smoking status: Current every day smoker Tobacco type: cigarettes Second hand tobacco smoke exposure: Yes Alcohol intake: former Alcohol use details: He used to drink a 30 pack per day but quit in 2020. Substance use: current Substance use type: marijuana Other substance usage details: Former use of cocaine and amphetamines. He quit in 2010. Additional living arrangements comments: He is . 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 Gender identity (if verbalized by the patient): Male Spiritual care concerns: No Exam Narrative: General appearance: Well-developed, well-nourished Skin: Normal color Head: Normocephalic, nontraumatic Eyes: Clear conjunctiva ENT: Oropharynx normal, ears normal, nose normal Neck: Supple, nontender Chest and respiratory: Airway patent, no respiratory distress, no accessory muscle use Heart: Regular rate/rhythm Abdomen: Soft, nontender, no organomegaly, quiet bowel sounds Vascular: Normal peripheral pulses, normal capillary refill. Musculoskeletal: Normal range of motion, nontender back, diffuse tenderness across the chest. No bruises, no swelling or rash Neurologic: Alert and oriented ?3, [place] is normal as tested, no gross motor deficit
[2022-03-28 07:44] LABS: Basophils Percent Auto 0.4 % (0.2-1.2); Eosinophils Absolute Auto 0.1 K/mm3 (0-0.3); Eosinophils Percent Auto 1.5 % (0-4.4); Hematocrit 40.6 % (42.0-52.0); Immature Granulocyte Absolute 0.02 K/mm3 (0.00-0.031); Immature Granulocyte Percent A 0.3 % (0-0.5); Lymphocytes Absolute Auto 1.83 K/mm3 (0.9-3.2); Lymphocytes Percent Auto 25.4 % (18.3-44.2); Mean Corpuscular HGB Conc 34.5 g/dl (32-36); Mean Corpuscular Hemoglobin 31.7 pg (26-34); Mean Corpuscular Volume 92.1 fl (80-100); Mean Platelet Volume 8.6 fl (7.4-10.4); Monocytes Absolute Auto 0.6 K/mm3 (0.1-0.6); Monocytes Percent Auto 8.7 % (2.6-8.5); Neutrophils Absolute Auto 4.6 K/mm3 (1.3-6.7); Neutrophils Percent Auto 63.7 % (45.5-73.1); Platelet Count Result 235 k/mm3 (150-375); Red Blood Count 4.41 M/mm3 (4.6-6.20); Red Cell Distribution Width 12.7 % (11.5-14.5); White Blood Count 7.2 K/mm3 (4.5-10.0)
[2022-03-28 07:49] VITALS: PULSE 84
[2022-03-28 07:58] LABS: Alanine Aminotransferase 17 U/L (6-50); Albumin Level 4.5 g/dL (3.5-5.1); Alkaline Phosphatase 66 U/L (38-126); Anion Gap 4 mmol/L (8-16); Aspartate Amino Transferase 23 U/L (17-59); Bilirubin,Total 0.3 mg/dL (0.2-1.3); Blood Urea Nitrogen 18 mg/dL (9-20); Calcium 8.8 mg/dL (8.4-10.2); Carbon Dioxide 28 mmol/L (22-30); Chloride 103 mmol/L (98-107); Estimated Glomerular Filt Rate > 60; Glucose 106 mg/dL (65-110); Lipase 121 U/L (23-300); Potassium 4.5 mmol/L (3.4-5.0); Sodium 135 mmol/L (137-145)
[2022-03-28 08:09] LABS: Troponin I < 0.012 ng/mL (0.000-0.034)
[2022-03-28 08:17] LABS: Prothrombin Time 12.4 Seconds (11.1-14.7)
[2022-03-28 08:18] LABS: Partial Thromboplastin Time 27.8 SECONDS (22.3-36.8)
[2022-03-28 08:43] LABS: Influenza A QL RT-PCR Negative (Negative); Influenza B QL RT-PCR Negative (Negative); RSV RNA, RT-PCR Negative (Negative); SARS-CoV-2 RNA PCR Negative
[2022-03-28 09:28] VITALS: BP 121/80; PULSE 80; RESP 18; O2SAT 97
== END 2022-03-28 09:30 | disposition home or self-care (01) ==
PROVIDERS: Emergency Provider Emergency Medicine; PCP Physician Assistant
DX: J06.9 Acute upper respiratory infection, unspecified (principal); R07.89 Other chest pain; I25.10 Atherosclerotic heart disease of native coronary artery without angina pectoris; M19.90 Unspecified osteoarthritis, unspecified site; F17.210 Nicotine dependence, cigarettes, uncomplicated; Z86.73 Personal history of transient ischemic attack (TIA), and cerebral infarction without residual deficits; Z79.82 Long term (current) use of aspirin
CPT/HCPCS: 36415; 71045; 80053; 83690; 84484; 85025; 85610; 85730; 87637; 93005; 99284

== ENCOUNTER 2022-05-29 02:40 | Emergency (ER) | payer OTHER, SELFPAY ==
[2022-05-29] VITALS (17 sets, daily range): BP systolic 103–122; BP diastolic 69–89; PULSE 65–84; RESP 11–20; TEMP 37.2; O2SAT 95–100
--- NOTE | ~2022-05-29 | XR_ITS ---
Clinical Indication: Chest pain PA and lateral views of the chest: Comparison: 03/28/2022 Findings: The lungs are clear, without evidence of focal consolidation or pleural effusion. Cardiome diastinal silhouette is within normal limits. Bones and soft tissues are unremarkable. Impression: Normal chest. Reviewed, dictated and finalized at location . ECTION OFFICER HEAD Impression: Normal chest.
--- NOTE | 2022-05-29 02:48 | ECG_ITS ---
Measurements Intervals [place] Rate: 75 P: 69 MO: 172 QRS: 75 QRSD: 97 T: 70 QT: 383 QTc: 429 Interpretive Statements SINUS RHYTHM NORMAL ECG COMPARED TO ECG 03/28/2022 07:34:02 NO SIGNIFICANT CHANGES Electronically Signed On 05-29-2022 6:40:13 RAISE DRILLER by Felipe Newell D.O.
[2022-05-29 03:02] LABS: Basophils Percent Auto 0.7 % (0.2-1.2); Eosinophils Absolute Auto 0.1 K/mm3 (0-0.3); Eosinophils Percent Auto 1.3 % (0-4.4); Hematocrit 42.6 % (42.0-52.0); Hemoglobin 14.4 g/dL (14.0-18.0); Immature Granulocyte Absolute 0.02 K/mm3 (0.00-0.031); Immature Granulocyte Percent A 0.4 % (0-0.5); Lymphocytes Absolute Auto 1.28 K/mm3 (0.9-3.2); Lymphocytes Percent Auto 23.7 % (18.3-44.2); Mean Corpuscular HGB Conc 33.8 g/dl (32-36); Mean Corpuscular Hemoglobin 31.9 pg (26-34); Mean Corpuscular Volume 94.2 fl (80-100); Mean Platelet Volume 8.5 fl (7.4-10.4); Monocytes Absolute Auto 0.4 K/mm3 (0.1-0.6); Monocytes Percent Auto 7.9 % (2.6-8.5); Neutrophils Absolute Auto 3.6 K/mm3 (1.3-6.7); Platelet Count Result 232 k/mm3 (150-375); Red Blood Count 4.52 M/mm3 (4.6-6.20); Red Cell Distribution Width 13.2 % (11.5-14.5); White Blood Count 5.4 K/mm3 (4.5-10.0)
[2022-05-29 03:13] LABS: Partial Thromboplastin Time 29.7 SECONDS (22.3-36.8)
[2022-05-29 03:18] LABS: Alanine Aminotransferase 16 U/L (6-50); Albumin Level 4.2 g/dL (3.5-5.1); Alkaline Phosphatase 50 U/L (38-126); Anion Gap 4 mmol/L (8-16); Aspartate Amino Transferase 21 U/L (17-59); Bilirubin,Total 0.6 mg/dL (0.2-1.3); Blood Urea Nitrogen 17 mg/dL (9-20); Calcium 8.7 mg/dL (8.4-10.2); Carbon Dioxide 25 mmol/L (22-30); Chloride 105 mmol/L (98-107); Estimated CRCL calculation 89 ml/min; Estimated Glomerular Filt Rate > 60; Glucose 105 mg/dL (65-110); Lipase 83 U/L (23-300); Potassium 3.7 mmol/L (3.4-5.0); Sodium 134 mmol/L (137-145)
[2022-05-29 03:30] LABS: Troponin I < 0.012 ng/mL (0.000-0.034)
--- NOTE | 2022-05-29 04:18 | ED.GENADULT ---
HPI - General Adult General Chief complaint: Chest Pain Stated complaint: CHEST PAIN Time Seen by Provider: 05/29/22 03:41 History of Present Illness HPI narrative: 56-year-old male presenting ED with a chief complaint of chest pain. Patient has said that he was woken from sleep when his dog started barking at 2:00 a.m.. At that time he had left-sided chest pain that is stabbing, nonradiating and it was initially 7/10 in intensity. Pain has since resolved. Patient says that he has had pain like this once a week for years. He has received a catheterization in the past that was negative for any sort of occlusion. There are no exacerbating factors. Is not associated with diaphoresis, vomiting radiation or exertion. Patient denies fever, chills, productive cough or lower extremity edema Related Data Home Medications Medication Instructions Recorded Confirmed aspirin 81 mg tablet,delayed 81 mg PO DAILY 05/24/20 10/22/21 release acetaminophen 500 mg capsule 500 mg PO Q6H PRN Pain (Scale 10/22/21 10/22/21 Score 4-6) Allergies Allergy/AdvReac Type Severity Reaction Status Date / Time steroids AdvReac Intermediate Sweating Uncoded 10/26/20 07:59 PMFSH Past Medical History Medical History Arthritis Bipolar disorder Continuous tobacco abuse Coronary artery disease CVA (cerebral vascular accident) Lumbosacral radiculopathy due to degenerative joint disease of spine Schizophrenia Surgical History Surgical History History of colonoscopy with polypectomy (09/2021) History of esophagogastroduodenoscopy (EGD) (09/2021) History of tonsillectomy and adenoidectomy Status post bilateral foot surgery Multiple debridements of the soles of bilateral feet. Family History Family History Mother Colon cancer Father Unknown family medical history Social History Social History Social History: Patient has smoked up to 3 packs of cigarettes per day but cut back to 0.5 pack per day in 2020. Code status: Full code Surrogate decision maker: Elmira Young () Smoking packs per day: 0.5 Smoking cigarettes per day: 10.0 Years smoked: 37 Smoking pack-years: 18.50 Smoking status: Current every day smoker Tobacco type: cigarettes Second hand tobacco smoke exposure: Yes Alcohol intake: former Alcohol use details: He used to drink a 30 pack per day but quit in 2020. Substance use: current Substance use type: marijuana Other substance usage details: Former use of cocaine and amphetamines. He quit in 2010. Additional living arrangements comments: He is . 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 Gender identity (if verbalized by the patient): Male Spiritual care concerns: No Exam Narrative: APPEARANCE: No apparent distress. Head: atraumatic. EYES: EOMI, NOSE: Atraumatic NECK: Trachea midline RESPIRATORY: No increased rate of breathing, clear to auscultation bilateral CARDIOVASCULAR: RRR, no peripheral edema ABDOMINAL: Non-distended MUSCULOSKELETAl: No obvious deformities NEURO: Alert. Moving 4/4 extremities SKIN:: Warm, dry. Normal color PSYCHIATRIC: Normal affect Course Vital Signs Vital signs: Vital Signs Temperature 99.0 F 05/29/22 02:42 Pulse Rate 79 05/29/22 02:42 Respiratory Rate 11 L 05/29/22 02:42 Blood Pressure 122/89 05/29/22 02:42 Pulse Oximetry 95 05/29/22 02:42 Oxygen Delivery Room Air 05/29/22 02:42 Temperature 99.0 F 05/29/22 02:42 Pulse Rate 66 05/29/22 05:55 Respiratory Rate 19 05/29/22 05:55 Blood Pressure 103/74 05/29/22 05:55 Pulse Oximetry 99 05/29/22 05:55 Oxygen Delivery Room Air 05/29/22 02:42 Medical Decision Making
[2022-05-29 06:26] LABS: Troponin I < 0.012 ng/mL (0.000-0.034)
== END 2022-05-29 06:58 | disposition home or self-care (01) ==
PROVIDERS: Emergency Provider Emergency Medicine; PCP Physician Assistant
DX: R07.9 Chest pain, unspecified (principal); I25.10 Atherosclerotic heart disease of native coronary artery without angina pectoris; M19.90 Unspecified osteoarthritis, unspecified site; F17.210 Nicotine dependence, cigarettes, uncomplicated; Z86.73 Personal history of transient ischemic attack (TIA), and cerebral infarction without residual deficits; Z79.82 Long term (current) use of aspirin
CPT/HCPCS: 36415; 71046; 80053; 83690; 84484; 85025; 85610; 85730; 93005; 99284

== ENCOUNTER 2022-09-23 13:06 | Emergency (ER) | payer OTHER, SELFPAY ==
--- NOTE | ~2022-09-23 | XR_ITS ---
EXAMINATION: XR hip RT min 3V w AP pelvis INDICATION: Right hip pain TECHNIQUE: AP view of the pelvis and three views of the right hip are obtained. COMPARISON: 10/24/2020 FINDINGS: There is mild osteoarthritis of the hips. Bone alignment is normal. There is no fracture. P hleboliths are noted in the pelvis. IMPRESSION: 1. No acute osseous abnormality. Reviewed, dictated and finalized at location A.
[2022-09-23 13:09] VITALS: BP 140/84; PULSE 105; RESP 18; TEMP 36.6; O2SAT 99
--- NOTE | 2022-09-23 14:21 | ED.LOWEXIN ---
HPI - Extremity Injury (Lower) General Chief Complaint: Extremity Injury, Lower Stated Complaint: fell over dog gate, right hip pain Time Seen by Provider: 09/23/22 13:24 Source: patient Mode of arrival: ambulatory Limitations: no limitations History of Present Illness HPI Narrative: Patient is a 57-year-old male who presents to the ED with report of right hip pain. Patient reports he tripped and fell over his dog gate last night and fell onto his right hip. He did not hit his head or lose consciousness. He complains of pain to his right lateral and posterior hip. He is able to ambulate, but does have some discomfort with this. Denies any pain radiating down his right leg, denies numbness or tingling. Denies any other injuries. Related Data Home Medications Medication Instructions Recorded Confirmed aspirin 81 mg tablet,delayed 81 mg PO DAILY 05/24/20 10/22/21 release acetaminophen 500 mg capsule 500 mg PO Q6H PRN Pain (Scale 10/22/21 10/22/21 Score 4-6) Allergies Allergy/AdvReac Type Severity Reaction Status Date / Time steroids AdvReac Intermediate Sweating Uncoded 09/23/22 13:11 Review of Systems Review of Systems: CONSTITUTIONAL: Denies fever, chills, or sweats. MUSCULOSKELETAL: See HPI. NEUROLOGIC: See HPI. All systems reviewed & are unremarkable except as noted in HPI and below PMFSH Past Medical History Medical History Arthritis Bipolar disorder Continuous tobacco abuse Coronary artery disease CVA (cerebral vascular accident) Lumbosacral radiculopathy due to degenerative joint disease of spine Schizophrenia Surgical History Surgical History History of colonoscopy with polypectomy (09/2021) History of esophagogastroduodenoscopy (EGD) (09/2021) History of tonsillectomy and adenoidectomy Status post bilateral foot surgery Multiple debridements of the soles of bilateral feet. Family History Family History Mother Colon cancer Father Unknown family medical history Social History Social History Social History: Patient has smoked up to 3 packs of cigarettes per day but cut back to 0.5 pack per day in 2020. Code status: Full code Surrogate decision maker: Elmira Young () Smoking packs per day: 0.5 Smoking cigarettes per day: 10.0 Years smoked: 37 Smoking pack-years: 18.50 Smoking status: Current every day smoker Tobacco type: cigarettes Second hand tobacco smoke exposure: Yes Alcohol intake: former Alcohol use details: He used to drink a 30 pack per day but quit in 2020. Substance use: current Substance use type: marijuana Other substance usage details: Former use of cocaine and amphetamines. He quit in 2010. Additional living arrangements comments: He is . 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 Gender identity (if verbalized by the patient): Male Spiritual care concerns: No Exam Narrative: GENERAL: Appears older than stated age, thin, non-toxic, in no acute distress. HEAD: Normocephalic, atraumatic. ENT: Edentulous. NECK: Supple. No adenopathy, no masses. RESPIRATORY: Airway patent, respirations nonlabored. Clear to auscultation bilaterally, no rales, rhonchi, wheezing. CARDIOVASCULAR: Regular rate and rhythm without murmurs, rubs, or gallops. Pedal pulses 2+ and equal bilaterally. MUSCULOSKELETAL: Moves all extremities. Strength/ROM intact without gross deformities. Mild tenderness to posterior lateral right hip joint, no palpable deformities. SKIN: Warm, dry, normal color. No rashes. NEURO: A&O X3. Speech clear. Cranial nerves II-XII grossly intact. Steady gait. No ataxic movements. PSYCHIATRIC: Appropriate mood and affect. Kia
== END 2022-09-23 14:42 | disposition home or self-care (01) ==
PROVIDERS: Emergency Provider Physician Assistant; PCP Physician Assistant
DX: S70.01XA Contusion of right hip, initial encounter (principal); I25.10 Atherosclerotic heart disease of native coronary artery without angina pectoris; Z86.73 Personal history of transient ischemic attack (TIA), and cerebral infarction without residual deficits; M19.90 Unspecified osteoarthritis, unspecified site; F17.210 Nicotine dependence, cigarettes, uncomplicated; Z79.82 Long term (current) use of aspirin; W18.09XA Striking against other object with subsequent fall, initial encounter
CPT/HCPCS: 73502; 99283

== ENCOUNTER 2022-12-22 16:53 | Emergency (ER) | payer OTHER, SELFPAY ==
[2022-12-22 17:32] VITALS: BP 143/77; PULSE 112; RESP 20; TEMP 36.9; O2SAT 100
--- NOTE | 2022-12-22 22:02 | ED.GENADULT ---
HPI - General Adult General Chief complaint: Unspecified Stated complaint: pain to right thigh Time Seen by Provider: 12/22/22 20:27 History of Present Illness HPI narrative: Patient is a 57-year-old male presenting with leg pain. Patient states that for the last 6 months or so he has had intermittent right thigh paresthesias and pain. States that it wakes him from sleep sometimes. States that he has chronic lower back pain and he has had this with sciatica before. Denies worsening of his lower back pain. Denies trauma or fevers. Denies weakness or difficulty ambulating. No saddle anesthesia, bladder or bowel incontinence. Related Data Home Medications Medication Instructions Recorded Confirmed aspirin 81 mg tablet,delayed 81 mg PO DAILY 05/24/20 10/22/21 release acetaminophen 500 mg capsule 500 mg PO Q6H PRN Pain (Scale 10/22/21 10/22/21 Score 4-6) Allergies Allergy/AdvReac Type Severity Reaction Status Date / Time steroids AdvReac Intermediate Sweating Uncoded 12/22/22 20:24 Review of Systems Review of Systems: All systems reviewed & are unremarkable except as noted in HPI and below PMFSH Past Medical History Medical History Arthritis Bipolar disorder Continuous tobacco abuse Coronary artery disease CVA (cerebral vascular accident) Lumbosacral radiculopathy due to degenerative joint disease of spine Schizophrenia Surgical History Surgical History History of colonoscopy with polypectomy (09/2021) History of esophagogastroduodenoscopy (EGD) (09/2021) History of tonsillectomy and adenoidectomy Status post bilateral foot surgery Multiple debridements of the soles of bilateral feet. Family History Family History Mother Colon cancer Father Unknown family medical history Social History Social History Social History: Patient has smoked up to 3 packs of cigarettes per day but cut back to 0.5 pack per day in 2020. Code status: Full code Surrogate decision maker: Elmira Young () Smoking packs per day: 0.5 Smoking cigarettes per day: 10.0 Years smoked: 37 Smoking pack-years: 18.50 Smoking status: Current every day smoker Tobacco type: cigarettes Second hand tobacco smoke exposure: Yes Alcohol intake: former Alcohol use details: He used to drink a 30 pack per day but quit in 2020. Substance use: current Substance use type: marijuana Other substance usage details: Former use of cocaine and amphetamines. He quit in 2010. Additional living arrangements comments: He is . 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 Gender identity (if verbalized by the patient): Male Spiritual care concerns: No Exam Narrative: GENERAL: Well-appearing, in no acute distress HEAD: Normocephalic, atraumatic. EYES: PERRLA and EOMI. ENT: Grossly unremarkable NECK: Supple. CHEST:No respiratory distress. HEART: Regular rate and rhythm. Normal peripheral pulses. ABDOMEN: Nondistended BACK: tenderness bilateral lower lumbar region into buttocks, no midline tenderness EXTREMITIES: Normal range of motion. No edema. SKIN: Warm, dry, no rash. NEURO: Alert and oriented x3. 5/5 strength BLE, no sensory deficits though R thigh feels like needles with palpation PSYCH: Normal mood and affect. Course Vital Signs Vital signs: Vital Signs Temperature 98.5 F 12/22/22 17:32 Pulse Rate 112 H 12/22/22 17:32 Respiratory Rate 20 12/22/22 17:32 Blood Pressure 143/77 H 12/22/22 17:32 Pulse Oximetry 100 12/22/22 17:32 Oxygen Delivery Room Air 12/22/22 17:32 Temperature 98.5 F 12/22/22 17:32 Pulse Rate 112 H 12/22/22 17:32 Respiratory Rate 20 12/22/22 17:3
== END 2022-12-22 22:17 | disposition home or self-care (01) ==
PROVIDERS: Emergency Provider Emergency Medicine; PCP Physician Assistant
DX: M54.50 Low back pain, unspecified (principal); R20.2 Paresthesia of skin; F17.210 Nicotine dependence, cigarettes, uncomplicated; M19.90 Unspecified osteoarthritis, unspecified site; F31.9 Bipolar disorder, unspecified; I25.10 Atherosclerotic heart disease of native coronary artery without angina pectoris; Z86.73 Personal history of transient ischemic attack (TIA), and cerebral infarction without residual deficits
CPT/HCPCS: 99283

== ENCOUNTER 2023-03-13 11:26 | Emergency (ER) | payer OTHER, SELFPAY ==
--- NOTE | ~2023-03-13 | XR_ITS ---
EXAMINATION: XR hip RT min 3V w AP pelvis INDICATION: Right hip pain TECHNIQUE: AP view the pelvis and three views of the right hip are obtained. COMPARISON: 09/23/2022 FINDINGS: Bone alignment is normal. There is no fracture. There is mild osteoarthritis of the hips. P hleboliths are noted in the pelvis. IMPRESSION: 1. No acute osseous abnormality. Reviewed, dictated and finalized at location B. OW CLERK
--- NOTE | ~2023-03-13 | US_ITS ---
EXAMINATION: US venous doppler LE RT DATE: 03/13/2023 12:55 INDICATION: Right lower limb pain TECHNIQUE: Grayscale ultrasound images without and with compression and Doppler ultrasound images of the right lower extremity veins were obtained. COMPARISON: None. FINDINGS: The visualized portions of right common femoral vein, profunda (deep) femoral vein, femoral vein, pop liteal vein, peroneal trunk, posterior tibial veins, peroneal veins, gastrocnemius vein and greater s aphenous vein outflow are patent. The visualized contralateral left common femoral vein and greater s aphenous vein outflow are patent. IMPRESSION: 1. No deep venous thrombosis in the right lower limb. Reviewed, dictated and finalized at location A. TR[employer]IC INTEGRATED SYSTEMS MECHANIC
[2023-03-13 11:28] VITALS: BP 132/85; PULSE 88; RESP 18; TEMP 37.1; O2SAT 100
--- NOTE | 2023-03-13 13:48 | ED.LOWEXIN ---
HPI - Extremity Injury (Lower) General Chief Complaint: Extremity Injury, Lower Stated Complaint: Right Leg Pain, Nerve Pain Time Seen by Provider: 03/13/23 12:00 Source: patient Mode of arrival: ambulatory Limitations: no limitations History of Present Illness HPI Narrative: patient is a 57-year-old male who presents the ED with report of right posterior thigh pain. Patient reports he was at work today and states his right leg gave out on him. He states this happens occasionally. He was previously told he had spinal issues. He complains of pain to his right posterior thigh from the fall and is concerned that he pulled a muscle. He has not taken anything for pain and denies wanting anything currently. He has been able to ambulate, but notices the pain more when he does so. He denies any lower back pain. Denies head injury or LOC. Denies knee pain. Related Data Home Medications Medication Instructions Recorded Confirmed aspirin 81 mg tablet,delayed 81 mg PO DAILY 05/24/20 10/22/21 release acetaminophen 500 mg capsule 500 mg PO Q6H PRN Pain (Scale 10/22/21 10/22/21 Score 4-6) Allergies Allergy/AdvReac Type Severity Reaction Status Date / Time steroids AdvReac Intermediate Sweating Uncoded 03/13/23 11:38 Review of Systems Review of Systems: CONSTITUTIONAL: Denies fever, chills, or sweats. MUSCULOSKELETAL: See HPI. NEUROLOGIC: Denies headache, dizziness, numbness, or weakness. All systems reviewed & are unremarkable except as noted in HPI and below PMFSH Past Medical History Medical History Arthritis Bipolar disorder Continuous tobacco abuse Coronary artery disease CVA (cerebral vascular accident) Lumbosacral radiculopathy due to degenerative joint disease of spine Schizophrenia Surgical History Surgical History History of colonoscopy with polypectomy (09/2021) History of esophagogastroduodenoscopy (EGD) (09/2021) History of tonsillectomy and adenoidectomy Status post bilateral foot surgery Multiple debridements of the soles of bilateral feet. Family History Family History Mother Colon cancer Father Unknown family medical history Social History Social History Social History: Patient has smoked up to 3 packs of cigarettes per day but cut back to 0.5 pack per day in 2020. Code status: Full code Surrogate decision maker: Elmira Young () Smoking packs per day: 0.5 Smoking cigarettes per day: 10.0 Years smoked: 37 Smoking pack-years: 18.50 Smoking status: Current every day smoker Tobacco type: cigarettes Second hand tobacco smoke exposure: Yes Alcohol intake: former Alcohol use details: He used to drink a 30 pack per day but quit in 2020. Substance use: current Substance use type: marijuana Other substance usage details: Former use of cocaine and amphetamines. He quit in 2010. Additional living arrangements comments: He is . 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 Gender identity (if verbalized by the patient): Male Spiritual care concerns: No Exam Narrative: GENERAL: appears older than stated age, thin, non-toxic, in no acute distress. HEAD: Normocephalic, atraumatic. RESPIRATORY: Airway patent, respirations nonlabored. CARDIOVASCULAR: Regular rate and rhythm. MUSCULOSKELETAL: Moves all extremities. No gross deformities. negative straight leg raise on right. Tenderness to palpation throughout right posterior lateral proximal thigh. No tenderness throughout the lumbar midline spine. No palpable deformities or bony step-offs. Sensation intact. SKIN: Warm, dry, normal color. NEURO: A&O X3. Speech clear. Cranial nerves II-
== END 2023-03-13 14:04 | disposition home or self-care (01) ==
PROVIDERS: Emergency Provider Physician Assistant; PCP Physician Assistant
DX: M79.651 Pain in right thigh (principal); I25.10 Atherosclerotic heart disease of native coronary artery without angina pectoris; F17.210 Nicotine dependence, cigarettes, uncomplicated; Z86.73 Personal history of transient ischemic attack (TIA), and cerebral infarction without residual deficits; Z79.82 Long term (current) use of aspirin; W18.39XA Other fall on same level, initial encounter
CPT/HCPCS: 73502; 93971; 99284

== ENCOUNTER 2023-03-28 13:15 | Emergency (ER) | payer MEDICAID, SELFPAY ==
[2023-03-28 13:16] VITALS: BP 157/58; PULSE 91; RESP 16; TEMP 36.2; O2SAT 100
--- NOTE | 2023-03-28 14:02 | ED.BACK ---
HPI - Back Pain/Injury General Chief Complaint: Back Pain/Injury Stated Complaint: back pain Time Seen by Provider: 03/28/23 13:40 Source: patient and family ( ) Mode of arrival: ambulatory History of Present Illness HPI Narrative: This is a 57-year-old male presents with complaint of back pressure. He notes a history of chronic back pain and he woke up at 9:30 p.m. with back pain. He called off work as result. This morning, he states the back pain had improved and is now just a vague pressure sensation but this was new and this is why he presents to the emergency department. He denies any nausea or fever, no saddle anesthesia. He denies any bowel or bladder incontinence or retention. No tearing sensation. Not on chronic steroids. No history of malignancy. Denies hematuria or dysuria. He does not years urinary urgency and frequency. No history of back surgery. He does have primary care physician. No acute trauma. He does state that a few days ago he had low abdominal pain that got better after drinking Sprite and has not recurred. denies constipation or straining. He has had a colposcopy which he states had a few small findings but without anything concerning and was told to follow up in 5 years. He is asking about a work note. 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 He notes he will occasionally get right anterior thigh pain but not in the past 24 hours. Related Data Home Medications Medication Instructions Recorded Confirmed aspirin 81 mg tablet,delayed 81 mg PO DAILY 05/24/20 10/22/21 release acetaminophen 500 mg capsule 500 mg PO Q6H PRN Pain (Scale 10/22/21 10/22/21 Score 4-6) Allergies Allergy/AdvReac Type Severity Reaction Status Date / Time steroids AdvReac Intermediate Sweating Uncoded 03/28/23 14:31 [facility] Past Medical History Medical History Arthritis Bipolar disorder Continuous tobacco abuse Coronary artery disease CVA (cerebral vascular accident) Lumbosacral radiculopathy due to degenerative joint disease of spine Schizophrenia Surgical History Surgical History History of colonoscopy with polypectomy (09/2021) History of esophagogastroduodenoscopy (EGD) (09/2021) History of tonsillectomy and adenoidectomy Status post bilateral foot surgery Multiple debridements of the soles of bilateral feet. Family History Family History (Updated 03/28/23 @ 14:07 by Vee Wall MD) Mother Colon cancer Father Unknown family medical history Grandparent No problems noted. Social History Social History Social History: Patient has smoked up to 3 packs of cigarettes per day but cut back to 0.5 pack per day in 2020. Code status: Full code Surrogate decision maker: Elmira Young () Smoking packs per day: 0.5 Smoking cigarettes per day: 10.0 Years smoked: 37 Smoking pack-years: 18.50 Smoking status: Current every day smoker Tobacco type: cigarettes Second hand tobacco smoke exposure: Yes Alcohol intake: former Alcohol use details: He used to drink a 30 pack per day but quit in 2020. Substance use: current Substance use type: marijuana Other substance usage details: Former use of cocaine and amphetamines. He quit in 2010. Additional living arrangements comments: He is . 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 Gender identity (if verbalized by the patient): Male Spiritual care concerns: No Exam Narrative: GENERAL: Thin/gaunt but in no acute distress. HEAD: Normocephalic, atraumatic. EYES: Non injected, non icteric ENT: Nares clear, no rhinorrhea or epistaxis. NECK: Supple. CHEST: speaking in complete sentences. No respiratory distress. HEART: Regular rate and rhy
[2023-03-28 14:25] LABS: Appearance Urine Clear (Clear); Bilirubin Urine Negative (Negative); Blood Urine Negative (Negative); Color Urine Yellow (Yellow); Glucose Urine UA Negative (Negative); Ketones Urine Negative (Negative); Leukocyte Esterase Ur Negative LEU/UL (Negative); Nitrate Urine Negative (Negative); Protein Urine Negative (Negative); Specific Grav Ur 1.024 (1.001-1.035); pH Urine 5.5 (5.0-9.0)
[2023-03-28] MEDS: ACETAMINOPHEN 325 MG TABLET 650 MG PO (14:31)
[2023-03-28 14:32] LABS: Add Urine Microscopic? NO
== END 2023-03-28 15:18 | disposition home or self-care (01) ==
PROVIDERS: Emergency Provider Student in an Organized Health Care Education/Training Program; PCP Physician Assistant
DX: M54.50 Low back pain, unspecified (principal); G89.29 Other chronic pain; I25.10 Atherosclerotic heart disease of native coronary artery without angina pectoris; M19.90 Unspecified osteoarthritis, unspecified site; F17.210 Nicotine dependence, cigarettes, uncomplicated; Z86.73 Personal history of transient ischemic attack (TIA), and cerebral infarction without residual deficits; Z79.82 Long term (current) use of aspirin
CPT/HCPCS: 81003; 99283; A9270

== ENCOUNTER 2023-05-19 14:15 | Emergency (ER) | payer OTHER, SELFPAY ==
--- NOTE | ~2023-05-19 | XR_ITS ---
EXAMINATION: XR elbow RT min 3V INDICATION: Right elbow pain TECHNIQUE: Four views of the right elbow are obtained. COMPARISON: None available FINDINGS: No fracture, dislocation, or subluxation. The bones, soft tissues, and joint spaces are nor mal. IMPRESSION: 1. No acute osseous abnormality. Reviewed, dictated and finalized at location L. CONSULTANT
--- NOTE | ~2023-05-19 | US_ITS ---
EXAMINATION: US venous doppler UE RT DATE: 05/19/2023 17:35 INDICATION: pain to R elbow/forearm . TECHNIQUE: Grayscale ultrasound images without and with compression and Doppler ultrasound images of the right upper extremity veins were obtained. COMPARISON: None. FINDINGS: The visualized portions of the right internal jugular vein, subclavian vein, axillary vein, brachial veins, basilic vein, cephalic vein, radial vein, and ulnar vein are patent. IMPRESSION: No deep venous thrombosis. Reviewed, dictated and finalized at location K. L STOCK FACER IMPRESSION: No deep venous thrombosis.
[2023-05-19 14:18] VITALS: BP 129/79; PULSE 104; RESP 20; TEMP 36.6; O2SAT 99
[2023-05-19 16:20] VITALS: BP 149/97; PULSE 87; RESP 18; TEMP 36.4; O2SAT 99
--- NOTE | 2023-05-19 16:29 | ED.UPPEXIN ---
HPI - Extremity Injury (Upper) General Chief Complaint: Extremity Injury, Upper Stated Complaint: right arm pain Time Seen by Provider: 05/19/23 16:32 Source: patient Mode of arrival: ambulatory Limitations: no limitations History of Present Illness HPI narrative: Patient is a 57-year-old male who presents the ED with report of right arm pain. Patient reports having pain in his right elbow and extending down his right forearm for the last 1.5 weeks. States he has pain with any type of movement, feels some relief with holding his arm next to his body. Has had trouble working due to the pain, difficulty lifting objects due to the pain. Denies feeling weak in his right upper extremity. Denies any known injury. He has been taking Tylenol with minimal relief. Denies numbness or tingling, chest pain, shortness of breath. Related Data Home Medications Medication Instructions Recorded Confirmed aspirin 81 mg tablet,delayed 81 mg PO DAILY 05/24/20 10/22/21 release acetaminophen 500 mg capsule 500 mg PO Q6H PRN Pain (Scale 10/22/21 10/22/21 Score 4-6) Allergies Allergy/AdvReac Type Severity Reaction Status Date / Time steroids AdvReac Intermediate Sweating Uncoded 05/19/23 16:22 Review of Systems Review of Systems: CONSTITUTIONAL: Denies fever, chills, or sweats. CARDIOVASCULAR: Denies chest pain. RESPIRATORY: Denies dyspnea. MUSCULOSKELETAL: See HPI. NEUROLOGIC: Denies headache, dizziness, numbness, or weakness. All systems reviewed & are unremarkable except as noted in HPI and below PMFSH Past Medical History Medical History Arthritis Bipolar disorder Continuous tobacco abuse Coronary artery disease CVA (cerebral vascular accident) Lumbosacral radiculopathy due to degenerative joint disease of spine Schizophrenia Surgical History Surgical History History of colonoscopy with polypectomy (09/2021) History of esophagogastroduodenoscopy (EGD) (09/2021) History of tonsillectomy and adenoidectomy Status post bilateral foot surgery Multiple debridements of the soles of bilateral feet. Family History Family History Mother Colon cancer Father Unknown family medical history Grandparent No problems noted. Social History Social History Social History: Patient has smoked up to 3 packs of cigarettes per day but cut back to 0.5 pack per day in 2020. Code status: Full code Surrogate decision maker: Elmira Young () Smoking packs per day: 0.5 Smoking cigarettes per day: 10.0 Years smoked: 37 Smoking pack-years: 18.50 Smoking status: Current every day smoker Tobacco type: cigarettes Second hand tobacco smoke exposure: Yes Alcohol intake: former Alcohol use details: He used to drink a 30 pack per day but quit in 2020. Substance use: current Substance use type: marijuana Other substance usage details: Former use of cocaine and amphetamines. He quit in 2010. Additional living arrangements comments: He is . 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 Gender identity (if verbalized by the patient): Male Spiritual care concerns: No Exam Narrative: GENERAL: Mildly disheveled, appears older than stated age, non-toxic, in no acute distress. HEAD: Normocephalic, atraumatic. RESPIRATORY: Airway patent, respirations nonlabored. Clear to auscultation bilaterally, no rales, rhonchi, wheezing. CARDIOVASCULAR: Regular rate and rhythm without murmurs, rubs, or gallops. Radial pulses easily palpable. MUSCULOSKELETAL: Moves all extremities. No gross deformities. No significant limited ROM of RUE. TTP along distal biceps tendon, lateral epicondyle of elbow, a
[2023-05-19] MEDS: KETOROLAC (*BKC) 60 MG/2 ML VIAL IM (16:36)
[2023-05-19 18:43] VITALS: BP 123/86; PULSE 74; RESP 20; O2SAT 100
== END 2023-05-19 18:45 | disposition home or self-care (01) ==
PROVIDERS: Emergency Provider Physician Assistant; PCP Physician Assistant
DX: M25.521 Pain in right elbow (principal); M79.631 Pain in right forearm; I25.10 Atherosclerotic heart disease of native coronary artery without angina pectoris; F17.210 Nicotine dependence, cigarettes, uncomplicated; Z86.73 Personal history of transient ischemic attack (TIA), and cerebral infarction without residual deficits
CPT/HCPCS: 73080; 93971; 96372; 99284; A4565; J1885

== ENCOUNTER 2023-06-05 17:14 | Emergency (ER) | payer OTHER, SELFPAY ==
[2023-06-05 17:28] VITALS: BP 130/87; PULSE 89; RESP 20; TEMP 37.7; O2SAT 100
--- NOTE | 2023-06-05 17:39 | ED.HA ---
HPI - Headache General Chief Complaint: Head Injury Stated Complaint: Headache Time Seen by Provider: 06/05/23 17:30 Source: patient Mode of arrival: ambulatory Limitations: no limitations History of Present Illness HPI Narrative: Juan is a 57-year-old male patient presenting to the clinic today with complaints of a acute headache. He reports his pain is currently a 7/10. He denies any nausea or vomiting. Is having pain to the bilateral parietal lobes. Denies any URI symptoms. Report states that is not the worst headache he has ever had and ibuprofen helped this pain yesterday however he is not supposed to take a whole lot of ibuprofen. He denies any visual changes or photosensitivity Related Data Allergies Allergy/AdvReac Type Severity Reaction Status Date / Time ibuprofen Allergy Other Verified 06/05/23 17:19 steroids AdvReac Intermediate Sweating Uncoded 06/05/23 17:18 Review of Systems Review of Systems: Pertinent positives per HPI. Patient denies any fever, chills, rash, headache, visual changes, dizziness, cough, runny nose, sore throat, shortness of breath, chest pain, palpitations, nausea, vomiting, diarrhea, constipation, abdominal pain, or any urinary issues. [facility] Past Medical History Medical History Arthritis Bipolar disorder Continuous tobacco abuse Coronary artery disease CVA (cerebral vascular accident) Lumbosacral radiculopathy due to degenerative joint disease of spine Schizophrenia Surgical History Surgical History History of colonoscopy with polypectomy (09/2021) History of esophagogastroduodenoscopy (EGD) (09/2021) History of tonsillectomy and adenoidectomy Status post bilateral foot surgery Multiple debridements of the soles of bilateral feet. Family History Family History Mother Colon cancer Father Unknown family medical history Grandparent No problems noted. Social History Social History Social History: Patient has smoked up to 3 packs of cigarettes per day but cut back to 0.5 pack per day in 2020. Code status: Full code Surrogate decision maker: Elmira Young () Smoking packs per day: 0.5 Smoking cigarettes per day: 10.0 Years smoked: 37 Smoking pack-years: 18.50 Smoking status: Current every day smoker Tobacco type: cigarettes Second hand tobacco smoke exposure: Yes Alcohol intake: former Alcohol use details: He used to drink a 30 pack per day but quit in 2020. Substance use: current Substance use type: marijuana Other substance usage details: Former use of cocaine and amphetamines. He quit in 2010. Additional living arrangements comments: He is . 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 Gender identity (if verbalized by the patient): Male Spiritual care concerns: No Comments At the time of my signature, I reviewed and agree with the nursing past medical, surgical, social, and family history. There is no relevant family history pertinent to the patient complaint. Exam Narrative: General: Well-developed, well nourished, in no apparent distress Head: Normocephalic, atraumatic Eyes: Pupils equally round and reactive to light bilaterally, EOM intact, sclera and conjunctive clear, no discharge, lids normal Ears: TMs intact and clear, ear canals clear, no drainage, grossly hearing normal. Nose: Nares patent, no discharge, no inflammation, no sinus tenderness. Mouth: Oropharynx without lesions or masses, poor dentition, MMM. Neck: Supple, trachea midline, no enlargement of anterior or posterior cervical nodes, no thyroid masses or goiter palpable. Cardio: Regular rate and rhythm, s1 and s2 normal, no murmu
== END 2023-06-05 17:45 | disposition home or self-care (01) ==
PROVIDERS: Emergency Provider Nurse Practitioner Family; PCP Physician Assistant
DX: R51.9 Headache, unspecified (principal); I25.10 Atherosclerotic heart disease of native coronary artery without angina pectoris; F17.210 Nicotine dependence, cigarettes, uncomplicated; Z86.73 Personal history of transient ischemic attack (TIA), and cerebral infarction without residual deficits
CPT/HCPCS: 99213; G0463

== ENCOUNTER 2023-10-01 15:08 | Emergency (ER) | payer OTHER, SELFPAY ==
[2023-10-01 15:13] VITALS: BP 149/82; PULSE 107; RESP 18; TEMP 36.9; O2SAT 100
--- NOTE | 2023-10-01 16:04 | ED.BACK ---
HPI - Back Pain/Injury General Chief Complaint: Back Pain/Injury Stated Complaint: back pain Time Seen by Provider: 10/01/23 15:25 History of Present Illness HPI Narrative: 58-year-old male history of chronic back pain presents to the emergency room for acute onset of right lower back pain. Patient states he woke up this morning, bent over reached out to grab something when he felt a pulling sensation in his back. States the back pain is worse when he rotates to the right. Denies fevers, denies any known injury or trauma, denies bowel or bladder changes, denies IV drug use. patient states that he took 800 mg ibuprofen this morning which improved his pain Related Data Allergies Allergy/AdvReac Type Severity Reaction Status Date / Time ibuprofen Allergy Other Verified 10/01/23 15:24 steroids AdvReac Intermediate Sweating Uncoded 10/01/23 15:24 Review of Systems Review of Systems: ROS unremarkable except for noted in HPI PMFSH Past Medical History Medical History Arthritis Bipolar disorder Continuous tobacco abuse Coronary artery disease CVA (cerebral vascular accident) Lumbosacral radiculopathy due to degenerative joint disease of spine Schizophrenia Surgical History Surgical History History of colonoscopy with polypectomy (09/2021) History of esophagogastroduodenoscopy (EGD) (09/2021) History of tonsillectomy and adenoidectomy Status post bilateral foot surgery Multiple debridements of the soles of bilateral feet. Family History Family History Mother Colon cancer Father Unknown family medical history Grandparent No problems noted. Social History Social History Social History: Patient has smoked up to 3 packs of cigarettes per day but cut back to 0.5 pack per day in 2020. Code status: Full code Surrogate decision maker: Elmira Young () Smoking packs per day: 0.5 Smoking cigarettes per day: 10.0 Years smoked: 37 Smoking pack-years: 18.50 Smoking status: Current every day smoker Tobacco type: cigarettes Second hand tobacco smoke exposure: Yes Alcohol intake: former Alcohol use details: He used to drink a 30 pack per day but quit in 2020. Substance use: current Substance use type: marijuana Other substance usage details: Former use of cocaine and amphetamines. He quit in 2010. Additional living arrangements comments: He is . 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 Gender identity (if verbalized by the patient): Male Spiritual care concerns: No Exam Narrative: GENERAL: Well-appearing, well-nourished, no physical limitations, and in no acute distress. HEAD: Normocephalic, atraumatic. EYES: Conjunctivae normal, PERRLA and EOMI. CHEST: Clear to auscultation. No respiratory distress. No wheezes rales or rhonchi. HEART: Regular rate and rhythm. No murmur heard. Normal peripheral pulses. BACK: No midline lumbar tenderness, step-offs, bony abnormality; +TTP right paralumbar fascia. -SLE EXTREMITIES: Normal range of motion. No edema. No clubbing or cyanosis SKIN: Warm, dry, no rash. No noted wounds NEURO: No focal deficits. Alert and oriented x3. MAEW. CN's II-XI intact bilaterally, normal gait PSYCH: Cooperative. Normal mood and affect. Course Vital Signs Vital signs: Vital Signs Temperature 36.9 C 10/01/23 15:13 Pulse Rate 107 H 10/01/23 15:13 Respiratory Rate 18 10/01/23 15:13 Blood Pressure 149/82 H 10/01/23 15:13 Pulse Oximetry 100 10/01/23 15:13 Oxygen Delivery Room Air 10/01/23 15:13 Temperature 36.9 C 10/01/23 15:13 Pulse Rate 107 H 10/01/23 15:13 Respiratory Rate 18 10/01/23 15:13 Blood Pressure
[2023-10-01 16:27] VITALS: BP 110/64; PULSE 100; RESP 16; TEMP 37.1; O2SAT 98
== END 2023-10-01 16:29 | disposition home or self-care (01) ==
PROVIDERS: Emergency Provider Nurse Practitioner Family; PCP Physician Assistant
DX: M54.50 Low back pain, unspecified (principal); I25.10 Atherosclerotic heart disease of native coronary artery without angina pectoris; M19.90 Unspecified osteoarthritis, unspecified site; F17.210 Nicotine dependence, cigarettes, uncomplicated; Z86.73 Personal history of transient ischemic attack (TIA), and cerebral infarction without residual deficits; Z86.010 Personal history of colon polyps
CPT/HCPCS: 99283

== ENCOUNTER 2024-04-28 14:01 | Emergency (ER) | payer OTHER, SELFPAY ==
--- NOTE | ~2024-04-28 | CT_ITS ---
EXAMINATION: CT abd pelvis lumbar wo con DATE: 04/28/2024 16:53 INDICATION: Lower abdominal pain and low back pain TECHNIQUE: Computed tomography (CT) of the abdomen, pelvis and lumbar spine was performed without int ravenous contrast. Automated exposure control and iterative reconstruction technique were employed. T he dose-length product was 177.48 mGy-cm. COMPARISON: 10/26/2020 FINDINGS: Abdomen and pelvis: Mild discoid atelectasis in the dependent aspect bilateral lower lobes. Heart size normal. No pericar dial or pleural effusion. Liver, gallbladder, spleen, pancreas, bilateral adrenal glands and kidneys are normal. Moderate amount of stool scattered throughout the colon. Small bowel and appendix are nor mal. Bladder is normal. Prostatomegaly measuring 4.7 x 3.5 cm. Small amount of mesenteric ascites in the deep pelvis. No abscess or free intraperitoneal gas. Small fat-containing left inguinal hernia. N o pathologically enlarged abdominal or pelvic lymphadenopathy. Lumbar spine: Alignment is normal. Vertebral body heights are normal. Mild disc height loss at L4-L5. Remaining dis c heights are normal. Disc bulges without significant disc height loss at L4-L5 and L5-S1. Severe fac et osteoarthritis bilaterally at L5-S1 and on the left at L4-L5. Mild to moderate facet osteoarthriti s and more cephalad lumbar spine. Mild to moderate neural from stenosis on the left at L4-L5 and mild neural from stenosis on the left at L4-L5 and bilaterally at L5-S1. IMPRESSION: 1. Nonspecific small amount of ascites in the deep pelvis which is of indeterminate etiology. No othe r acute intra-abdominal/pelvic process. 2. Prostatomegaly. 3. Mild lower lumbar spondylosis. Reviewed, dictated and finalized at location A. K PLUG ASSEMBLER IMPRESSION: 1. Nonspecific small amount of ascites in the deep pelvis which is of indetermi luis etiology. No other acute intra-abdominal/pelvic process. 2. Prostatomegaly. 3. Mild lower lumbar spondylosis.
--- OUTSIDE RECORDS SUMMARY | 2024-04-28 14:05 | XMS_ITS | Patient Health Summary ---
Author Organization [facility] Address [address] [place] [address] Care Team Providers Care Frozen Meat Cutter Name Role Phone Carmella Campo PA-C Primary Care Provider Note from [facility],non-owned Affiliates and Associated Physician Practices is amultiple site organization consisting of ambulatory clinics and hospital sitesin [place], [place], [place] and [place]. This disclosure is being madepursuant to the Care Everywhere program and may not contain all information available regarding this patient. Last updated 17.[facility] [employer] Allergies * Jasmyn Protect(Other) Medications * Be aware that medications may not be up to date on this document. Alwaysverify current medications with the patient. * ASPIRIN LOW DOSE 81 MG tablet(Started 09/02/2019) TK 1 T PO QD * cyclobenzaprine (FLEXERIL) 10 MG tablet(Started 07/15/2019) TK 1 T PO TID PRN FOR MUSCLE SPASMS * traMADol (ULTRAM) 50 MG tablet(Started 08/25/2019) Take 50 mg by mouth every 6 hours as needed pain * cyclobenzaprine (FLEXERIL) 5 MG tablet(Started 10/03/2019) Take 1 tablet by mouth 3 times daily as needed Reasons: Muscle Spasm Social History Tobacco Use Types Packs/Day Years Used Date Smoking Tobacco: Every Day Smokeless Tobacco: Never Alcohol Use Standard Drinks/Week Comments Not Currently 0 (1 standard drink = 0.6 oz pur e alcohol) Sex and Gender Information Value Date Recorded Sex Assigned at Not on file Gender Identity Not on file Sexual Orientation Not on file Last Filed Vital Signs Vital Sign Reading Time Taken Comments Blood Pressure 133/96 10/03/2019 2:10 PM CDT Pulse 93 10/03/2019 2:10 PM CDT Temperature 37.3 C (99.2 F) 10/03/2019 2:10 PM CDT Respiratory Rate - - Oxygen Saturation 98% 10/03/2019 2:10 PM CDT Inhaled Oxygen Concentration - - Weight 53.5 kg (118 lb) 10/03/2019 2:10 PM CDT Height 160 cm (5' 3 ) 10/03/2019 2:10 PM CDT Body Mass Index 20.9 10/03/2019 2:10 PM CDT Care Teams Frozen Meat Cutter Relationship Specialty Start Date End Date Carmella Campo PA-C [address] [place] [id number] PCP - General 10/03/19
--- OUTSIDE RECORDS SUMMARY | 2024-04-28 14:05 | XMS_ITS | Clinical Summary ---
Author Organization [facility] Address [address] [place] [address] Care Team Providers Care Uniform Patrol Police Officer Name Role Phone Carmella Campo PA-C Primary Care Provider [phone] Allergies Active Allergy Reactions Criticality Noted Date Comments Steroids Other (see comment) 06/28/2018 Does not know the name of the steroid, but they gave him chills and hot flashes Medications omeprazole 20 MG capsule Take 1 capsule (20 mg total) by mouth daily. 15 capsule 9 Active ondansetron 4 MG disintegrating tablet Take 1 tablet (4 mg total) by mouth every 8 (eight) hours as needed. 20 tablet 1 Active Social History Tobacco Use Types Packs/Day Years Used Date Smoking Tobacco: Every Day Cigarettes Smokeless Tobacco: Never Alcohol Use Standard Drinks/Week Comments No 0 (1 standard drink = 0.6 oz pur e alcohol) AUDIT-C Answer Date Recorded Frequency of Alcohol Consumption Never 06/28/2018 Average Number of Drinks Not on file 019 Frequency of Binge Drinking Not on file 10/2018 Sex and Gender Information Value Date Recorded Sex Assigned at Not on file Legal Sex Male 8:03 PM CDT Gender Identity Not on file Sexual Orientation Not on file Last Filed Vital Signs Vital Sign Reading Time Taken Comments Blood Pressure 145/79 05/27/2020 7:22 PM MEDICAL PHYSICS TEACHER Pulse 70 05/27/2020 7:22 PM MEDICAL PHYSICS TEACHER Temperature 36.6 C (97.8 F) 05/27/2020 5:14 PM MEDICAL PHYSICS TEACHER Respiratory Rate 16 05/27/2020 7:22 PM MEDICAL PHYSICS TEACHER Oxygen Saturation 100% 05/27/2020 7:22 PM MEDICAL PHYSICS TEACHER Inhaled Oxygen Concentration - - Weight 60.8 kg (134 lb) 05/27/2020 5:14 PM MEDICAL PHYSICS TEACHER Height 160 cm (5' 3 ) 05/27/2020 5:14 PM MEDICAL PHYSICS TEACHER Body Mass Index 23.74 05/27/2020 5:14 PM MEDICAL PHYSICS TEACHER Plan of Treatment Health Maintenance Due Date Last Done Comments Colorectal Cancer Screening Colonoscopy (10 Years) 1965 Annual Physical 1968 Pneumococcal Vaccine: Pediat rics (0 to 5 Years) and At-Risk Patients (6 to 64 Years) (1 of 2 - PCV) 09/16/1971 Hepatitis C 09/16/1983 DTaP, Tdap and Td Vaccines ( 1 - Tdap) 1984 Hepatitis B Vaccines (1 of 3 - 19+ 3-dose series) 1984 Zoster Vaccines (1 of 2) 09/16/2015 COVID-19 Vaccine ( - 2023-2 5 season) 2023 Influenza Adult (#1) 2023 Meningococcal B Vaccine Aged Out No l onger eligible based on patient's age to complete this topic Meningococcal Vaccine Aged Out No reynaldo suzan eligible based on patient's age to complete this topic RSV Immunizations Under 20 Months Aged Out No longer eligible based on patient's age to complete this topic Insurance [employer] Care Teams Uniform Patrol Police Officer Relationship Specialty Start Date End Date Carmella Campo PA-C [address] [place] [phone] PCP - General NURSE PRACTITIONER 05/27/20
--- OUTSIDE RECORDS SUMMARY | 2024-04-28 14:05 | XMS_ITS | Referral Summary ---
Author Organization [facility] Address [address] [place] [address] Care Team Providers Care Shank Piece Tacker Name Role Phone Carmella Campo PA-C Primary Care Provider Source Comments [facility],non-owned Affiliates and Associated Physician Practices is amultiple site organization consisting of ambulatory clinics and hospital sitesin [place], [place], [place] and [place]. This disclosure is being madepursuant to the Care Everywhere program and may not contain all information available regarding this patient. Last updated 17.[facility] Allergies Active Allergy Reactions Criticality Noted Date Comments Jasmyn Protect Other 06/28/2018 Does not know the name of the steroid, but they gave him chills and hot flashes Medications * Be aware that medications may not be up to date on this document. Alwaysverify current medications with the patient. Medication Sig Dispensed Refills Start Date End Date Status ASPIRIN LOW DOSE 81 MG tablet TK 1 T PO QD 09/02/2019 Active cyclobenzaprine (FLEXERIL) 10 MG tablet TK 1 T PO TID PRN FOR MUSCLE SPASMS 07/15/2019 Active traMADol (ULTRAM) 50 MG tablet Take 50 mg by mouth every 6 hours as needed pain 08/25/2019 Active cyclobenzaprine (FLEXERIL) 5 MG tabletIndications:Mus queta Spasm Take 1 tablet by mouth 3 times daily as needed Reasons: Muscle Spasm 30 tablet 10/03/2019 Active Social History Tobacco Use Types Packs/Day [...] Mass Index 20.9 10/03/2019 2:10 PM CDT Plan of Treatment Not on file Care Teams Shank Piece Tacker Relationship Specialty Start Date End Date Carmella Campo PA-C [address] [place] [phone] PCP - General 10/03/19
--- OUTSIDE RECORDS SUMMARY | 2024-04-28 14:05 | XMS_ITS | Clinical Summary ---
Author Organization [facility] Address [address] [place] [address] Care Team Providers Care Blocklayer Name Role Phone Carmella Campo PA-C Primary Care Provider Source Comments [facility],non-owned Affiliates and Associated Physician Practices is amultiple site organization consisting of ambulatory clinics and hospital sitesin [place], [place], [place] and [place]. This disclosure is being madepursuant to the Care Everywhere program and may not contain all information available regarding this patient. Last updated 17.[facility] Allergies Active Allergy Reactions Criticality Noted [...] 10/03/2019 2:10 PM CDT Plan of Treatment Health Maintenance Due Date Last Done Comments COLOGUARD (AGES 45-75) - COL ON CA SCREENING 1965 COLON MONITORING 1965 COLONOSCOPY - COLON CA SCREENING 1965 CT COLONOGRAPHY - COLON CA SCREENING 1965 Colorectal Cancer Screening 1965 FIT - COLON CA SCREENING 1965 FLEX SIG - COLON CA SCREENING 1965 LIPID TESTING 1965 HIV SCREENING 1980 HEPATITIS C SCREENING 09/11/1983 DTAP/TDAP/TD VACCINES (1 - Tdap) 1984 HEPATITIS B VACCINE (1 of 3 - 19+ 3-dose series) 1984 PNEUMOCOCCAL VACCINE 50+ (1 of 2 - PCV) 1984 PNEUMOCOCCAL VACCINE (1 of 2 - PCV) 1984 ZOSTER VACCINE (1 of 2) 09/16/2015 COVID-19 VACCINE (1 - 2023-2 5 season) 2023 INFLUENZA VACCINE (#1) 2023 DEPRESSION SCREENING 03/23/2024 HIB VACCINE Aged Out No longer eligi ble based on patient's age to complete this topic HPV VACCINE Aged Out No longer eligi ble based on patient's age to complete this topic MENINGOCOCCAL (Group B) VACCINE Aged Out No longer eligible based on patient's age to complete this topic MENINGOCOCCAL VACCINE Aged Out No reynaldo suzan eligible based on patient's age to complete this topic Care Teams Blocklayer Relationship Specialty Start Date End Date Carmella Campo PA-C [address] [place] [phone] PCP - General 10/03/19
--- OUTSIDE RECORDS SUMMARY | 2024-04-28 14:05 | XMS_ITS | Referral Summary ---
Author Organization [facility] Address [address] [place] [address] Care Team Providers Care Cigarette And Filter Chief Inspector Name Role Phone No, Physician Primary Care Provider [phone] Allergies No known active allergies Medications lidocaine (LIDODERM) 5 % Place 1 patch on the skin daily Remove & discard patch within 12 hours or as directed by . 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 Gender Identity Not on file Sexual Orientation Not on file Last Filed Vital Signs Vital Sign Reading Time Taken Comments Blood Pressure 136/83 08/13/2021 5:15 AM CDT Pulse 59 08/13/2021 5:15 AM CDT Temperature 36.7 C (98 F) 08/13/2021 4:12 AM CDT Respiratory Rate 16 08/13/2021 4:12 AM CDT Oxygen Saturation 100% 08/13/2021 5:15 AM CDT Inhaled Oxygen Concentration - - Weight 54 kg (119 lb) 08/13/2021 4:12 AM CDT Height 165.1 cm (5' 5 ) 10/27/2018 12:56 PM CDT Body Mass Index 19.8 10/27/2018 12:56 PM CDT Plan of Treatment Not on file Insurance [facility] Advance Directives For more information, please contact: [phone] Documents on File Type Date Recorded Patient Broommaker Expl anation ADVANCE DIRECTIVE 08/01/2012 12:00 AM LEVY Lozano OF PACKAGE LINE OPERATOR FINANCIAL/MEDICAL Care Teams Cigarette And Filter Chief Inspector Relationship Specialty Start Date End Date No, Physician PCP - General 10/21/18
--- OUTSIDE RECORDS SUMMARY | 2024-04-28 14:05 | XMS_ITS | Clinical Summary ---
Author Organization [facility] Address [address] [place] [id number] Care Team Providers Care Gas Pump Attendant Name Role Phone No, Physician Primary Care Provider [phone] Allergies No known active allergies Medications lidocaine (LIDODERM) 5 % Place 1 patch on the skin daily Remove & discard patch within 12 hours or as directed by . 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 Gender Identity Not on file Sexual Orientation Not on file Obstetrics History Last Filed Vital Signs Vital Sign Reading [...] 10/27/2018 12:56 PM CDT Plan of Treatment Health Maintenance Due Date Last Done Comments Colon Cancer Screening-Colonoscopy 1965 Depression Screening 1965 Hepatitis C Screening 1965 Prostate Cancer Screening-PSA 1965 Pneumococcal vaccine <65 (1 of 2 - PCV) 09/16/1971 DTaP/Tdap/Td Vaccine (1 - Tdap) 1976 Hepatitis B Screening 09/16/1983 Regular Well Visit/Exam 18-64 09/16/1983 Zoster Vaccine (1 of 2) 09/16/2015 Influenza Vaccine (#1) 2023 Insurance Member Subscriber Plan / Payer ( fective 2019-Present) Name:Juan Young II Relation to Subscriber:Self Name:Juan Young II Payer ID:[id number] (NAIC) Type:MEDICAID RISK OTHER Address: [place] [id number] [facility] Advance Directives For more information, please contact: [phone] Documents on File Type Date Recorded Patient Clothes Separator Expl anation ADVANCE DIRECTIVE 08/01/2012 12:00 AM LEVY R OF AUTO ENGINE MECHANIC FINANCIAL/MEDICAL Care Teams Gas Pump Attendant Relationship Specialty Start Date End Date No, Physician PCP - General 10/21/18
[2024-04-28 15:12] VITALS: BP 128/82; PULSE 76; RESP 15; TEMP 36.6; O2SAT 99
--- NOTE | 2024-04-28 16:16 | ED_ITS ---
HPI - Abdominal Pain General Chief Complaint: Abdominal Pain <CRYSTAL Robertson Last Filed: 04/28/24 16:23> Stated Complaint: abdominal pain, back pain <CRYSTAL Robertson Last Filed: 04/28/24 16:23> Time Seen by Provider: 04/28/24 16:16 <CRYSTAL Robertson Last Filed: 04/28/24 16:23> Focused HPI: Patient is a 58 y/o male who presents to the ED with c/o lower back pain. Patient reports having diffuse pain in his lower back for the past few days. Began initially at work. States pain is worse with sitting down, occ radiates down legs. States when he lays down flat, he feels the pain more in his lower abdomen. Has not taken anything for pain. Denies N/V/D, constipation, saddle anesthesia, bowel or bladder incontinence, weakness. GENERAL: Chronically ill appearing, appears older than stated age, thin, and in no acute distress. HEAD: Normocephalic, atraumatic. ENT: Edentulous. CHEST: Clear to auscultation. ?No respiratory distress. HEART: Regular rate and rhythm.? MSK: Mild TTP in midline lumbar region. No palpable bony deformities. Sensation intact. NEURO: ?Alert and oriented x3. No focal deficits. Patient screened in triage and initial orders placed.? ?Additional care and disposition to be based upon?diagnostic testing and treatment. <CRYSTAL Robertson Last Filed: 04/28/24 16:23> Source: patient <CRYSTAL Robertson Last Filed: 04/28/24 16:23> Mode of arrival: ambulatory <CRYSTAL Robertson Last Filed: 04/28/24 16:23> Limitations: no limitations <CRYSTAL Robertson Last Filed: 04/28/24 16:23> History of Present Illness HPI narrative: Agree with triage note above. Patient feels that most of this pain is coming from his low back. He endorses chronic low back pain and chronic degenerative issues to his back. States that the pain is worsened while he is at work and on his feet. Denies fevers, chills, urinary symptoms or nausea/vomiting. He is concerned because he had to take off work and is requesting a work note. <CRYSTAL Koehler Last Filed: 04/29/24 02:35> Related Data Allergies/Adverse Reactions: Allergies Allergy/AdvReac Type Severity Reaction Status Date / Time ibuprofen Allergy Other Verified 10/01/23 15:24 steroids AdvReac Intermediate Sweating Uncoded 10/01/23 15:24 <CRYSTAL Robertson Last Filed: 04/28/24 16:23> Review of Systems Review of Systems: All systems as dictated in HPI <CRYSTAL Koehler Last Filed: 04/29/24 02:35> [facility] Past Medical History Medical History: Medical History Arthritis Bipolar disorder Continuous tobacco abuse Coronary artery disease CVA (cerebral vascular accident) Lumbosacral radiculopathy due to degenerative joint disease of spine Schizophrenia <Casie Ruiz PA-C - Last Filed: 04/28/24 16:23> Surgical History Surgical History: Surgical History History of colonoscopy with polypectomy (09/2021) History of esophagogastroduodenoscopy (EGD) (09/2021) History of tonsillectomy and adenoidectomy Status post bilateral foot surgery Multiple debridements of the soles of bilateral feet. <Casie Ruiz PA-C - Last Filed: 04/28/24 16:23> Family History Family History: Family History Mother Colon cancer Father Unknown family medical history Grandparent No problems noted. <CRYSTAL Robertson Last Filed: 04/28/24 16:23> Social History Social History: Social History Social History: Patient has smoked up to 3 packs of cigarettes per day but cut back to 0.5 pack per day in 2020. Code status: Full code Surrogate decision maker: Elmira Young () Smoking packs per day: 0.5 Smoking cigarettes per day: 10.0 Years smoked: 37 Smoking pack-years: 18.50 Smoking status: Current every day smoker Tobacco type: cigarettes Second hand tobacco smoke exposure: Yes Alcohol intake: former Alcohol use details: He used to drink a 30 pack per day but quit in 2020. Substance use: current Substance use type: marijuana Other substance usage details: Former use of cocaine and amphetamines. He quit in 2010. Additional living arrangements comments: He is . 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 Gender identity (if verbalized by the patient): Male Spiritual care concerns: No <Casie Ruiz PA-C - Last Filed: 04/28/24 16:23> Exam Narrative: GENERAL: Well-appearing, well-nourished, and in no acute distress. HEAD: Normocephalic, atraumatic. EYES: PERRLA and EOMI. ENT: Nares clear, no rhinorrhea or epistaxis. Mucous membranes moist. Oropharynx without tonsillar hypertrophy exudate or other lesions. NECK: Supple. No adenopathy or masses. CHEST: No respiratory distress. Clear to auscultation. No wheezes rales or rhonchi HEART: Regular rate and rhythm. No murmur heard. Normal peripheral pulses. ABDOMEN: Soft, nontender, nondistended, normal active bowel sounds. MSK: Normal range of motion. No edema. SKIN: Warm, dry, no rash. NEURO: Alert and oriented x4. No focal deficits. 5/5 strength and sensation to the upper and lower extremities. No saddle anesthesia. PSYCH: Normal mood and affect. <Jaswant Montaño PA-C - Last Filed: 04/29/24 02:35> Course Vital Signs Vital signs: Vital Signs Temperature 97.9 F 04/28/24 15:12 Pulse Rate 76 04/28/24 15:12 Respiratory Rate 15 04/28/24 15:12 Blood Pressure 128/82 04/28/24 15:12 Pulse Oximetry 99 04/28/24 15:12 Oxygen Delivery Room Air 04/28/24 15:12 Temperature 97.9 F 04/28/24 15:12 Pulse Rate 56 L 04/28/24 18:20 Respiratory Rate 15 04/28/24 18:20 Blood Pressure 135/72 04/28/24 18:20 Pulse Oximetry 99 04/28/24 18:20 Oxygen Delivery Room Air 04/28/24 15:12 <Casie Ruiz PA-C - Last Filed: 04/28/24 16:23> Vital Signs Temperature 97.9 F 04/28/24 15:12 Pulse Rate 76 04/28/24 15:12 Respiratory Rate 15 04/28/24 15:12 Blood Pressure 128/82 04/28/24 15:12 Pulse Oximetry 99 04/28/24 15:12 Oxygen Delivery Room Air 04/28/24 15:12 Temperature 97.9 F 04/28/24 15:12 Pulse Rate 56 L 04/28/24 18:20 Respiratory Rate 15 04/28/24 18:20 Blood Pressure 135/72 04/28/24 18:20 Pulse Oximetry 99 04/28/24 18:20 Oxygen Delivery Room Air 04/28/24 15:12 <CRYSTAL Koehler Last Filed: 04/29/24 02:35> MDM - Abdominal Pain MDM Narrative Medical decision making narrative: MSE by JADE in triage. <CRYSTAL Robertson Last Filed: 04/28/24 16:23> MSE by JADE in triage. This is a 58-year-old male who presents to the ED for chronic back pain. Vitals are normal. Exam is unremarkable. No red flag back signs today. CT abdomen pelvis, lumbar spine: IMPRESSION: 1. Nonspecific small amount of ascites in the deep pelvis which is of indeterminate etiology. No other acute intra-abdominal/pelvic process. 2. Prostatomegaly. 3. Mild lower lumbar spondylosis. Discussed with patient that I do believe the chronic degeneration of his spine is correlating with his symptoms and presentation today. Shared decision making to avoid any further workup with labs. He is comfortable with going home on a muscle relaxer prescription and is appreciative of a referral to Neurosurgery today. Patient will be discharged in stable condition. Supportive measures discussed and return precautions given. Patient is understanding and agreeable with plan for discharge with PCP follow-up. <CRYSTAL Koehler Last Filed: 04/29/24 02:35> Imaging Data Radiologist's impression: ITS Impressions Miscellaneous CT Procedure 04/28/24 16:54 IMPRESSION: 1. Nonspecific small amount of ascites in the deep pelvis which is of indeterminate etiology. No other acute intra-abdominal/pelvic process. 2. Prostatomegaly. 3. Mild lower lumbar spondylosis. <CRYSTAL Robertson Last Filed: 04/28/24 16:23> ITS Impressions Miscellaneous CT Procedure 04/28/24 16:54 IMPRESSION: 1. Nonspecific small amount of ascites in the deep pelvis which is of indeterminate etiology. No other acute intra-abdominal/pelvic process. 2. Prostatomegaly. 3. Mild lower lumbar spondylosis. <CRYSTAL Koehler Last Filed: 04/29/24 02:35> Discharge Plan Discharge Clinical Impression: Chronic back pain <CRYSTAL Robertson Last Filed: 04/28/24 16:23> Patient Disposition: Home, Self-Care <CRYSTAL Robertson Last Filed: 04/28/24 16:23> Condition: Stable <CRYSTAL Robertson Last Filed: 04/28/24 16:23> Instructions: Antibiotic Form <CRYSTAL Robertson Last Filed: 04/28/24 16:23> Additional Instructions: Your exam and imaging today do show degeneration of the spine. Please take cyclobenzaprine as prescribed and follow-up with Neurosurgery. Continue with Tylenol 500 mg every 6 hours as needed for pain control. If you have any new or worsening symptoms please return to the ER for further evaluation. <CRYSTAL Robertson Last Filed: 04/28/24 16:23> Patient Language: Uruguayan <CRYSTAL Robertson Last Filed: 04/28/24 16:23> Prescriptions: New cyclobenzaprine 10 mg tablet 10 mg PO HS PRN (Reason: muscle spasm) Qty: 10 0RF No Action naproxen 500 mg tablet,delayed release (DR/EC) 500 mg PO BID PRN (Reason: pain) 3 Days Qty: 6 0RF methocarbamol 750 mg tablet 750 mg PO TID Qty: 21 0RF <Casie Ruiz PA-C - Last Filed: 04/28/24 16:23> Follow-up/Referrals: Alber,JASON Dominguez [Primary Care Provider] - Eloise Casper MD [Physician] - <Casie Ruiz PA-C - Last Filed: 04/28/24 16:23> Stand Alone Forms: Work/School Release IP <Casie Ruiz PA-C - Last Filed: 04/28/24 16:23> Time of Disposition: 17:44 <Casie Ruiz PA-C - Last Filed: 04/28/24 16:23> 17:44 <Jaswant Montaño PA-C - Last Filed: 04/29/24 02:35>
[2024-04-28] MEDS: ACETAMINOPHEN 500 MG TABLET 1000 MG PO (16:24)
[2024-04-28] MEDS: CYCLOBENZAPRINE HCL 5 MG TABLET PO (16:25)
--- OUTSIDE RECORDS SUMMARY | 2024-04-28 17:54 | XMS_ITS | Referral Summary ---
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
--- OUTSIDE RECORDS SUMMARY | 2024-04-28 17:54 | XMS_ITS | Clinical Summary ---
Author Organization [facility] Address [address] [place] [address] Care Team Providers Care Furnace Packer Name Role Phone Carmella Campo PA-C Primary Care Provider Source Comments [facility],non-owned Affiliates and Associated Physician Practices is amultiple site organization consisting of ambulatory clinics and hospital sitesin [place], [place], [place] and [place]. This disclosure is being madepursuant to the Care Everywhere program and may not contain all information available regarding this patient. Last updated 17.[facility] Allergies Active Allergy Reactions Criticality Noted Date [...] age to complete this topic Care Teams Furnace Packer Relationship Specialty Start Date End Date Carmella Campo PA-C [address] [place] [phone] PCP - General 10/03/19
--- OUTSIDE RECORDS SUMMARY | 2024-04-28 17:54 | XMS_ITS | Clinical Summary ---
Author Organization [facility] Address [address] [place] [address] Care Team Providers Care Strategy Planning Consultant Name Role Phone Carmella Campo PA-C Primary Care Provider [phone] Allergies Active Allergy Reactions Criticality Noted Date [...] Comments Blood Pressure 145/79 05/27/2020 7:22 PM PERMIT TECHNICIAN Pulse 70 05/27/2020 7:22 PM PERMIT TECHNICIAN Temperature 36.6 C (97.8 F) 05/27/2020 5:14 PM PERMIT TECHNICIAN Respiratory Rate 16 05/27/2020 7:22 PM PERMIT TECHNICIAN Oxygen Saturation 100% 05/27/2020 7:22 PM PERMIT TECHNICIAN Inhaled Oxygen Concentration - - Weight 60.8 kg (134 lb) 05/27/2020 5:14 PM PERMIT TECHNICIAN Height 160 cm (5' 3 ) 05/27/2020 5:14 PM PERMIT TECHNICIAN Body Mass Index 23.74 05/27/2020 5:14 PM PERMIT TECHNICIAN Plan of Treatment Health Maintenance Due Date [...] complete this topic Insurance [employer] Care Teams Strategy Planning Consultant Relationship Specialty Start Date End Date Carmella Campo PA-C [address] [place] [phone] PCP - General NURSE PRACTITIONER 05/27/20
--- OUTSIDE RECORDS SUMMARY | 2024-04-28 17:54 | XMS_ITS | Referral Summary ---
Author Organization [facility] Address [address] [place] [address] Care Team Providers Care Computer Aided Drafter Name Role Phone Carmella Campo PA-C Primary Care Provider Source Comments [facility],non-owned Affiliates and Associated Physician Practices is amultiple site organization consisting of ambulatory clinics and hospital sitesin [place], [place], [place] and [place]. This disclosure is being madepursuant to the Care Everywhere program and may not contain all information available regarding this patient. Last updated 17.[facility] Allergies Active Allergy Reactions Criticality Noted Date [...] of Treatment Not on file Care Teams Computer Aided Drafter Relationship Specialty Start Date End Date Carmella Campo PA-C [address] [place] [phone] PCP - General 10/03/19
--- OUTSIDE RECORDS SUMMARY | 2024-04-28 17:54 | XMS_ITS | Patient Health Summary ---
Author Organization [facility] Address [address] [facility] [place] [address] Care Team Providers Care Third Shift Lieutenant Name Role Phone Carmella Campo PA-C Primary Care Provider Note from [facility],non-owned Affiliates and Associated Physician Practices is amultiple site organization consisting of ambulatory clinics and hospital sitesin [place], [place], [place] and [place]. This disclosure is being madepursuant to the Care Everywhere program and may not contain all information available regarding this patient. Last updated 17.[facility] [employer] Allergies * Jasmyn Protect(Other) Medications * Be [...] 20.9 10/03/2019 2:10 PM CDT Care Teams Third Shift Lieutenant Relationship Specialty Start Date End Date Carmella Campo PA-C [address] [place] [phone] PCP - General 10/03/19
--- OUTSIDE RECORDS SUMMARY | 2024-04-28 17:54 | XMS_ITS | Clinical Summary ---
Author Organization [facility] Address [address] [place] [id number] Care Team Providers Care Verifying Specialist Name Role Phone No, Physician Primary Care Provider [phone] Allergies No known active allergies Medications lidocaine [...] on file Legal Sex Male 6:36 PM CIA AGENT Gender Identity Not on file Sexual Orientation [...] Payer ID:[id number] (NAIC) Type:MEDICAID RISK OTHER Address: [place] [id number] [facility] Advance Directives For more information, please contact: [phone] Documents on File Type Date Recorded Patient Dynamometer Tester Engine Expl anation ADVANCE DIRECTIVE 08/01/2012 12:00 AM LEVY R OF YARD WAREHOUSE WORKER FINANCIAL/MEDICAL Care Teams Verifying Specialist Relationship Specialty Start Date End Date No, Physician PCP - General 10/21/18
[2024-04-28] MEDS: HYDROcodone/acetaminophen (*CRX) 5-325 MG TABLET 1 TAB PO (18:17)
[2024-04-28 18:20] VITALS: BP 135/72; PULSE 56; RESP 15; O2SAT 99
== END 2024-04-28 18:25 | disposition home or self-care (01) ==
PROVIDERS: Emergency Provider Physician Assistant; PCP Physician Assistant
DX: M54.50 Low back pain, unspecified (principal); G89.29 Other chronic pain; I25.10 Atherosclerotic heart disease of native coronary artery without angina pectoris; M19.90 Unspecified osteoarthritis, unspecified site; F17.210 Nicotine dependence, cigarettes, uncomplicated; Z86.73 Personal history of transient ischemic attack (TIA), and cerebral infarction without residual deficits; M47.816 Spondylosis without myelopathy or radiculopathy, lumbar region; N40.0 Benign prostatic hyperplasia without lower urinary tract symptoms
CPT/HCPCS: 72131; 74176; 99284; A9270

== ENCOUNTER 2024-05-06 13:39 | Emergency (ER) | payer OTHER, SELFPAY ==
--- NOTE | ~2024-05-06 | XR_ITS ---
EXAMINATION: XR chest 2V 05/06/2024 15:10 INDICATION: Cough PROCEDURE: 2 view chest COMPARISON: Comparison to multiple prior studies sequentially, with oldest reviewed study dated 04/2021. FINDINGS: The lungs are clear. The cardiomediastinal silhouette is within normal limits. There are no pleural effusions. There is no pneumothorax suspected. IMPRESSION: 1: NO ACUTE CARDIOPULMONARY DISEASE. Reviewed, dictated and finalized at location B. BRIDGE OPERATOR
[2024-05-06 13:47] VITALS: BP 136/85; PULSE 97; RESP 18; TEMP 36.8; O2SAT 100
--- OUTSIDE RECORDS SUMMARY | 2024-05-06 13:47 | XMS_ITS | Referral Summary ---
Author Organization [facility] Address [address] [facility] [place] [address] Care Team Providers Care Glazing Department Supervisor Name Role Phone Carmella Campo PA-C Primary Care Provider Source Comments [facility],non-owned Affiliates and Associated Physician Practices is amultiple site organization consisting of ambulatory clinics and hospital sitesin [place], [place], [place] and [place]. This disclosure is being madepursuant to the Care Everywhere program and may not contain all information available regarding this patient. Last updated 17.[facility] Allergies Active Allergy Reactions Criticality Noted [...] of Treatment Not on file Care Teams Glazing Department Supervisor Relationship Specialty Start Date End Date Carmella Campo PA-C [address] [place] [phone] PCP - General 10/03/19
--- OUTSIDE RECORDS SUMMARY | 2024-05-06 13:47 | XMS_ITS | Clinical Summary ---
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
--- OUTSIDE RECORDS SUMMARY | 2024-05-06 13:47 | XMS_ITS | Patient Health Summary ---
Author Organization [facility] Address [address] [facility] [place] [address] Care Team Providers Care Veterinarian Helper Name Role Phone Carmella Campo PA-C Primary Care Provider Note from [facility],non-owned Affiliates and Associated Physician Practices is amultiple site organization consisting of ambulatory clinics and hospital sitesin [place], [place], [place] and [place]. This disclosure is being madepursuant to the Care Everywhere program and may not contain all information available regarding this patient. Last updated 17.[facility] [employer] Allergies * Jasmyn Protect(Other) Medications * Be [...] 20.9 10/03/2019 2:10 PM CDT Care Teams Veterinarian Helper Relationship Specialty Start Date End Date Carmella Campo PA-C [address] [place] [phone] PCP - General 10/03/19
--- OUTSIDE RECORDS SUMMARY | 2024-05-06 13:47 | XMS_ITS | Clinical Summary ---
Author Organization [facility] Address [address] [place] [address] Care Team Providers Care Feeder Catcher Tobacco Name Role Phone Carmella Campo PA-C Primary Care Provider [phone] Allergies Active Allergy Reactions Criticality Noted Date [...] Comments Blood Pressure 145/79 05/27/2020 7:22 PM PROFESSOR OF APOLOGETICS Pulse 70 05/27/2020 7:22 PM PROFESSOR OF APOLOGETICS Temperature 36.6 C (97.8 F) 05/27/2020 5:14 PM PROFESSOR OF APOLOGETICS Respiratory Rate 16 05/27/2020 7:22 PM PROFESSOR OF APOLOGETICS Oxygen Saturation 100% 05/27/2020 7:22 PM PROFESSOR OF APOLOGETICS Inhaled Oxygen Concentration - - Weight 60.8 kg (134 lb) 05/27/2020 5:14 PM PROFESSOR OF APOLOGETICS Height 160 cm (5' 3 ) 05/27/2020 5:14 PM PROFESSOR OF APOLOGETICS Body Mass Index 23.74 05/27/2020 5:14 PM PROFESSOR OF APOLOGETICS Plan of Treatment Health Maintenance Due Date [...] complete this topic Insurance [employer] Care Teams Feeder Catcher Tobacco Relationship Specialty Start Date End Date Carmella Campo PA-C [address] [place] [phone] PCP - General NURSE PRACTITIONER 05/27/20
--- OUTSIDE RECORDS SUMMARY | 2024-05-06 13:47 | XMS_ITS | Referral Summary ---
Author Organization 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
--- OUTSIDE RECORDS SUMMARY | 2024-05-06 13:47 | XMS_ITS | Clinical Summary ---
Author Organization [facility] Address [address] [facility] [place] [address] Care Team Providers Care Civil Service Clerk Name Role Phone Carmella Campo PA-C Primary Care Provider Source Comments [facility],non-owned Affiliates and Associated Physician Practices is amultiple site organization consisting of ambulatory clinics and hospital sitesin [place], [place], [place] and [place]. This disclosure is being madepursuant to the Care Everywhere program and may not contain all information available regarding this patient. Last updated 17.[facility] Allergies Active Allergy Reactions Criticality [...] age to complete this topic Care Teams Civil Service Clerk Relationship Specialty Start Date End Date Carmella Campo PA-C [address] [place] [phone] PCP - General 10/03/19
--- NOTE | 2024-05-06 14:52 | ED_ITS ---
HPI - URI/Sore Throat General Chief Complaint: Upper Respiratory Infection Stated Complaint: cough Time Seen by Provider: 05/06/24 17:04 Focused HPI: 58 y/o M presents to the ED for a cough for the past several days. States cough is dry. His is also being evaluated for the same sx. Denies fever, n/v/d. Smokes 1/2 ppd. No former dx of COPD. GENERAL: Well-appearing, well-nourished, and in no acute distress. HEAD: Normocephalic, atraumatic. CHEST: Clear to auscultation. ?No respiratory distress. HEART: Regular rate and rhythm.? NEURO: ?Alert and oriented x3. Patient screened in triage and initial orders placed.? ?Additional care and disposition to be based upon?diagnostic testing and treatment. History of Present Illness HPI Narrative: Agree with the above HPI Related Data Allergies Allergy/AdvReac Type Severity Reaction Status Date / Time ibuprofen Allergy Other Verified 10/01/23 15:24 steroids AdvReac Intermediate Sweating Uncoded 10/01/23 15:24 Review of Systems Review of Systems: All systems reviewed & are unremarkable except as noted in HPI and below PMFSH Past Medical History Medical History Lumbosacral radiculopathy due to degenerative joint disease of spine Continuous tobacco abuse Coronary artery disease Bipolar disorder Schizophrenia CVA (cerebral vascular accident) Arthritis Surgical History Surgical History History of colonoscopy with polypectomy (09/2021) History of esophagogastroduodenoscopy (EGD) (09/2021) Status post bilateral foot surgery Multiple debridements of the soles of bilateral feet. History of tonsillectomy and adenoidectomy Family History Family History Mother Colon cancer Father Unknown family medical history Grandparent No problems noted. Social History Social History Social History: Patient has smoked up to 3 packs of cigarettes per day but cut back to 0.5 pack per day in 2020. Code status: Full code Surrogate decision maker: Elmira Young () Smoking packs per day: 0.5 Smoking cigarettes per day: 10.0 Years smoked: 37 Smoking pack-years: 18.50 Smoking status: Current every day smoker Tobacco type: cigarettes Second hand tobacco smoke exposure: Yes Alcohol intake: former Alcohol use details: He used to drink a 30 pack per day but quit in 2020. Substance use: current Substance use type: marijuana Other substance usage details: Former use of cocaine and amphetamines. He quit in 2010. Additional living arrangements comments: He is . 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 Gender identity (if verbalized by the patient): Male Spiritual care concerns: No Exam Narrative: GENERAL: Well-appearing, well-nourished, and in no acute distress. HEAD: Normocephalic, atraumatic. EYES: EOMI. ENT: Nares clear, no rhinorrhea or epistaxis. Mucous membranes moist. NECK: Supple. CHEST: Clear to auscultation. No respiratory distress. HEART: Regular rate and rhythm. No murmur heard. Normal peripheral pulses. ABDOMEN: Soft, nontender, nondistended, normal active bowel sounds. EXTREMITIES: Normal range of motion. No edema. SKIN: Warm, dry, no rash. NEURO: No focal deficits. Alert and oriented x3 Course Vital Signs Vital signs: Vital Signs Temperature 98.2 F 05/06/24 13:47 Pulse Rate 97 05/06/24 13:47 Respiratory Rate 18 05/06/24 13:47 Blood Pressure 136/85 05/06/24 13:47 Pulse Oximetry 100 05/06/24 13:47 Temperature 98.2 F 05/06/24 13:47 Pulse Rate 97 05/06/24 13:47 Respiratory Rate 18 05/06/24 13:47 Blood Pressure 136/85 05/06/24 13:47 Pulse Oximetry 100 05/06/24 13:47 MDM - URI/Sore Throat MDM Narrative Medical decision making narrative: 58-year-old male presents emergency department for URI symptoms for the past few days. Vitals/stable. Patient is afebrile and nontoxic appearing. Exam is significant for the above. Viral swabs are negative. Chest x-ray shows no acute cardiopulmonary finding. Patient updated on results. His who is at bedside was also evaluated is a patient in the ED and did test positive for influenza A. Suspect the patient also has influenza. Discussed supportive care and return precautions. He is agreeable with the plan and verbalized understanding. Discharged in stable condition. Lab Data Labs: Lab Results 05/06/24 Range/Units 14:53 Influenza A (RT-PCR) Negative (Negative) Influenza B (RT-PCR) Negative (Negative) RSV (RT-PCR) Negative (Negative) SARS-CoV-2 RNA (RT-PCR) Negative (Negative) Discharge Plan Discharge Clinical Impression: Upper respiratory infection, viral Patient Disposition: Home, Self-Care Condition: Stable Instructions: Antibiotic Form, Upper Respiratory Infection (ED) Additional Instructions: Rest, drink plenty of fluids, follow-up with your primary care provider. Return to the emergency department if you develop new or worsening symptoms. Patient Language: Hebrew Prescriptions: No Action naproxen 500 mg tablet,delayed release (DR/EC) 500 mg PO BID PRN (Reason: pain) 3 Days Qty: 6 0RF cyclobenzaprine 10 mg tablet 10 mg PO HS PRN (Reason: muscle spasm) Qty: 10 0RF methocarbamol 750 mg tablet 750 mg PO TID Qty: 21 0RF Follow-up/Referrals: Alber,JASON Dominguez [Primary Care Provider] - Stand Alone Forms: Work/School Release IP
[2024-05-06 15:35] LABS: Influenza A QL RT-PCR Negative (Negative); Influenza B QL RT-PCR Negative (Negative); RSV RNA, RT-PCR Negative (Negative); SARS-CoV-2 RNA PCR Negative (Negative)
--- OUTSIDE RECORDS SUMMARY | 2024-05-06 15:43 | XMS_ITS | Referral Summary ---
Author Organization [facility] Address [address] [place] [address] Care Team Providers Care Galley Worker Name Role Phone No, Physician Primary Care Provider [phone] Allergies No known active allergies Medications lidocaine [...] on file Legal Sex Male 6:36 PM MOUNTER AUTOMATIC Gender Identity Not on file Sexual Orientation [...] Plan of Treatment Not on file Insurance [facility] Advance Directives For more information, please contact: [phone] Documents on File Type Date Recorded Patient Aeronautics Commission Director Expl anation ADVANCE DIRECTIVE 08/01/2012 12:00 AM LEVY Lozano OF [employer] FINANCIAL/MEDICAL Care Teams Galley Worker Relationship Specialty Start Date End Date No, Physician PCP - General 10/21/18
--- OUTSIDE RECORDS SUMMARY | 2024-05-06 15:43 | XMS_ITS | Patient Health Summary ---
Author Organization [facility] Address [address] [facility] [place] [address] Care Team Providers Care S Iron Worker Name Role Phone Carmella Campo PA-C Primary Care Provider Note from [facility][note 2],non-owned Affiliates and Associated Physician Practices is amultiple site organization consisting of ambulatory clinics and hospital sitesin [place], [place], [place] and [place]. This disclosure is being madepursuant to the Care Everywhere program and may not contain all information available regarding this patient. Last updated 17.[facility] [employer] Allergies * Jasmyn Protect(Other) Medications * Be [...] 20.9 10/03/2019 2:10 PM CDT Care Teams S Iron Worker Relationship Specialty Start Date End Date Carmella Campo PA-C [address] [place] [phone] PCP - General 10/03/19
--- OUTSIDE RECORDS SUMMARY | 2024-05-06 15:43 | XMS_ITS | Clinical Summary ---
Author Organization [facility] Address [address] [place] [address] Care Team Providers Care Equipment Maintenance Supervisor Name Role Phone No, Physician Primary Care Provider [phone] Allergies No known active allergies Medications lidocaine [...] on file Legal Sex Male 6:36 PM PARI MUTUEL TICKET SELLER Gender Identity Not on file Sexual Orientation [...] Payer ID:[id number] (NAIC) Type:MEDICAID RISK OTHER Address: [place] [id number] [facility] Advance Directives For more information, please contact: [phone] Documents on File Type Date Recorded Patient Cut Out Marker Expl anation ADVANCE DIRECTIVE 08/01/2012 12:00 AM LEVY R OF TRAFFIC LINE PAINTER FINANCIAL/MEDICAL Care Teams Equipment Maintenance Supervisor Relationship Specialty Start Date End Date No, Physician PCP - General 10/21/18
--- OUTSIDE RECORDS SUMMARY | 2024-05-06 15:43 | XMS_ITS | Clinical Summary ---
Author Organization [facility] Address [address] [facility] [place] [address] Care Team Providers Care Educator Senior Clinical Name Role Phone Carmella Campo PA-C Primary Care Provider Source Comments [facility],non-owned Affiliates and Associated Physician Practices is amultiple site organization consisting of ambulatory clinics and hospital sitesin [place], [place], [place] and [place]. This disclosure is being madepursuant to the Care Everywhere program and may not contain all information available regarding this patient. Last updated 17.[facility] Allergies Active Allergy Reactions Criticality [...] age to complete this topic Care Teams Educator Senior Clinical Relationship Specialty Start Date End Date Carmella Campo PA-C [address] [place] [phone] PCP - General 10/03/19
--- OUTSIDE RECORDS SUMMARY | 2024-05-06 15:43 | XMS_ITS | Clinical Summary ---
Author Organization [facility] Address [address] [place] [address] Care Team Providers Care Diamond Sorter Name Role Phone Carmella Campo PA-C Primary Care Provider [phone] Allergies Active Allergy Reactions Criticality Noted Date [...] Comments Blood Pressure 145/79 05/27/2020 7:22 PM HANDSTITCHING MACHINE COLLAR FELLER Pulse 70 05/27/2020 7:22 PM HANDSTITCHING MACHINE COLLAR FELLER Temperature 36.6 C (97.8 F) 05/27/2020 5:14 PM HANDSTITCHING MACHINE COLLAR FELLER Respiratory Rate 16 05/27/2020 7:22 PM HANDSTITCHING MACHINE COLLAR FELLER Oxygen Saturation 100% 05/27/2020 7:22 PM HANDSTITCHING MACHINE COLLAR FELLER Inhaled Oxygen Concentration - - Weight 60.8 kg (134 lb) 05/27/2020 5:14 PM HANDSTITCHING MACHINE COLLAR FELLER Height 160 cm (5' 3 ) 05/27/2020 5:14 PM HANDSTITCHING MACHINE COLLAR FELLER Body Mass Index 23.74 05/27/2020 5:14 PM HANDSTITCHING MACHINE COLLAR FELLER Plan of Treatment Health Maintenance Due Date [...] complete this topic Insurance [employer] Care Teams Diamond Sorter Relationship Specialty Start Date End Date Carmella Campo PA-C [address] [place] [phone] PCP - General NURSE PRACTITIONER 05/27/20
--- OUTSIDE RECORDS SUMMARY | 2024-05-06 15:43 | XMS_ITS | Referral Summary ---
Author Organization [facility] Address [address] [facility] [place] [address] Care Team Providers Care Non Food Receiving Clerk Name Role Phone Carmella Campo PA-C Primary Care Provider Source Comments [facility],non-owned Affiliates and Associated Physician Practices is amultiple site organization consisting of ambulatory clinics and hospital sitesin [place], [place], [place] and [place]. This disclosure is being madepursuant to the Care Everywhere program and may not contain all information available regarding this patient. Last updated 17.[facility] Allergies Active Allergy Reactions Criticality [...] of Treatment Not on file Care Teams Non Food Receiving Clerk Relationship Specialty Start Date End Date Carmella Campo PA-C [address] [place] [phone] PCP - General 10/03/19
== END 2024-05-06 17:15 | disposition home or self-care (01) ==
PROVIDERS: Emergency Provider Physician Assistant; PCP Physician Assistant
DX: J06.9 Acute upper respiratory infection, unspecified (principal); Z86.0100 Personal history of colon polyps, unspecified; F17.210 Nicotine dependence, cigarettes, uncomplicated; Z20.822 Contact with and (suspected) exposure to COVID-19
CPT/HCPCS: 71046; 87637; 99283

== ENCOUNTER 2024-12-15 16:39 | Emergency (ER) | payer OTHER, SELFPAY ==
--- NOTE | ~2024-12-15 | XR_ITS ---
EXAMINATION: XR chest 2V 12/15/2024 18:52 INDICATION: History of asthma PROCEDURE: 2 view chest COMPARISON: Comparison to multiple prior studies sequentially, with oldest reviewed study dated 02/15/2022. FINDINGS: The lungs are clear. The cardiomediastinal silhouette is within normal limits. There are no pleural effusions. There is no pneumothorax suspected. IMPRESSION: 1: NO ACUTE CARDIOPULMONARY DISEASE. Reviewed, dictated and finalized at location O.
--- NOTE | ~2024-12-15 | CT_ITS ---
EXAMINATION: CT abd pelvis lumbar w con DATE: 12/15/2024 18:57 INDICATION: Lower abdomen pain TECHNIQUE: Computed tomography (CT) of the abdomen, pelvis and lumbar spine was performed with intravenous contrast. The dose-length product was 215.97 mGy-cm. Automated exposure control and iterative reconstruction technique were employed. COMPARISON: CT dated 04/28/2024 FINDINGS: There is right lower lobe atelectasis. No significant pleural or pericardial effusion. Heart size normal. The liver, spleen, pancreas, adrenal glands and kidneys are unremarkable. There are air-fluid levels in the small bowel of the left midabdomen, nonspecific. No definite obstruction. There is circumaortic left renal vein gallbladder is present. No significant vascular abnormality. No lymphadenopathy. No acute fracture of the lumbar spine. No evidence for spondylolysis or spondylolisthesis. There is mild dextrocurvature of the bar spine. There are small subcentimeter cysts of the left kidney. Normal appendix. IMPRESSION: 1. No acute abnormality. Reviewed, dictated and finalized at location O. IMPRESSION: 1. No acute abnormality.
[2024-12-15 16:58] VITALS: BP 172/94; PULSE 92; RESP 18; TEMP 37.1; O2SAT 100
--- OUTSIDE RECORDS SUMMARY | 2024-12-15 17:44 | XMS_ITS | Clinical Summary ---
Author Organization [facility] Address [facility] [place] [address] Care Team Providers Care Nut And Bolt Assembler Name Role Phone No, Physician Primary Care Provider [phone] Allergies No known active allergies Medications lidocaine (LIDODERM) 5 % Place 1 patch on the skin daily Remove & discard patch within 12 hours or as directed by . 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 Gender Identity Not on file Sexual Orientation [...] 4:12 AM CDT Height 165.1 cm (5' 5) 10/27/2018 12:56 PM CDT Body Mass Index 19.8 10/27/2018 12:56 PM CDT Plan of Treatment Not on file Insurance [facility] Advance Directives For more information, please contact: [phone] Documents on File Type Date Recorded Patient Embedded Software Engineer Expl anation ADVANCE DIRECTIVE 08/01/2012 12:00 AM LEVY R OF [employer] INTEGRATION SPECIALIST FINANCIAL/MEDICAL Care Teams Nut And Bolt Assembler Relationship Specialty Start Date End Date No, Physician PCP - General 10/21/18
--- OUTSIDE RECORDS SUMMARY | 2024-12-15 17:44 | XMS_ITS | Clinical Summary ---
Author Organization [facility] Address [address] [place] [address] Care Team Providers Care Pipe Organ Mechanic Apprentice Name Role Phone Carmella Campo PA-C Primary Care Provider Source Comments [facility],non-owned Affiliates and Associated Physician Practices is amultiple site organization consisting of ambulatory clinics and hospital sitesin [place], [place], [place] and [place]. This disclosure is being madepursuant to the Care Everywhere program and may not contain all information available regarding this patient. Last updated 17.[facility] Allergies Active Allergy Reactions Criticality Noted Date Comments Jasmyn Protect Other 06/28/2018 Does not know the name of the steroid, but they gave him chills and hot flashes Medications * Be aware that medications may not be up to date on this document. Alwaysverify current medications with the patient. ASPIRIN LOW DOSE 81 MG tablet TK 1 T PO QD 09/02/2019 Active cyclobenzaprine (FLEXERIL) 10 MG tablet TK 1 T PO TID PRN FOR MUSCLE SPASMS 07/15/2019 Active traMADol (ULTRAM) 50 MG tablet Take 50 mg by mouth every 6 hours as needed pain 08/25/2019 Active cyclobenzaprine (FLEXERIL) 5 MG tabletIndication s:Muscle Spasm Take 1 tablet by mouth 3 [...] at Not on file Legal Sex Male 12:29 PM CDT Gender Identity Not on file [...] 2:10 PM CDT Height 160 cm (5' 3) 10/03/2019 2:10 PM CDT Body Mass Index [...] series) 1984 PNEUMOCOCCAL VACCINE 50+ (1 of 1 - PCV) 09/16/2015 ZOSTER VACCINE (1 of 2) 09/16/2015 DEPRESSION SCREENING 03/23/2024 COVID-19 VACCINE (1 - 2023-2 5 season) 2024 INFLUENZA VACCINE (#1) 2024 HIB VACCINE Aged Out No longer eligi ble based on patient's age to complete this topic HPV VACCINE Aged Out No longer eligi ble based on patient's age to complete this topic MENINGOCOCCAL (Group B) VACC INE SHARED DECISION-MAKING Aged Out No longer eligibl e based on patient's age to complete this topic MENINGOCOCCAL GROUPS A/C/Y/W VACCINE Aged Out No longer eligible b ased on patient's age to complete this topic Insurance [facility] Care Teams Pipe Organ Mechanic Apprentice Relationship Specialty Start Date End Date Carmella Campo PA-C [address] [place] [phone] PCP - General 10/03/19
--- OUTSIDE RECORDS SUMMARY | 2024-12-15 17:44 | XMS_ITS | Clinical Summary ---
Author Organization [facility] Address [address] [place] [address] Care Team Providers Care Elevated Work Platform Operator Name Role Phone Carmella Campo PA-C Primary Care Provider [phone] Allergies Active Allergy Reactions Criticality Noted Date [...] Comments Blood Pressure 145/79 05/27/2020 7:22 PM [facility] Pulse 70 05/27/2020 7:22 PM [facility] Temperature 36.6 C (97.8 F) 05/27/2020 5:14 PM [facility] Respiratory Rate 16 05/27/2020 7:22 PM [facility] Oxygen Saturation 100% 05/27/2020 7:22 PM [facility] Inhaled Oxygen Concentration - - Weight 60.8 kg (134 lb) 05/27/2020 5:14 PM [facility] Height 160 cm (5' 3) 05/27/2020 5:14 PM [facility] Body Mass Index 23.74 05/27/2020 5:14 PM [facility] Plan of Treatment Health Maintenance Due Date Last Done Comments Colorectal Cancer Screening Colonoscopy (10 Years) 1965 Annual Physical 1968 Hepatitis C 09/16/1983 DTaP, Tdap and Td Vaccines ( 1 - Tdap) 1984 Pneumococcal Vaccine: 50+ Ye ars (1 of 2 - PCV) 1984 Zoster Vaccines (1 of 2) 09/16/2015 COVID-19 Vaccine (1 - 2023-2 5 season) 2024 Meningococcal B Vaccine Aged Out No l onger eligible based on patient's age to complete this topic Meningococcal Vaccine Aged Out No reynaldo suzan eligible based on patient's age to complete this topic RSV Immunizations Under 20 Months Aged Out No longer eligible based on patient's age to complete this topic Insurance [facility] Care Teams Elevated Work Platform Operator Relationship Specialty Start Date End Date Carmella Campo PA-C PCP - General NURSE PRACTITIONER 05/27/20
[2024-12-15 18:04] VITALS: BP 178/88; PULSE 92; RESP 20; TEMP 37; O2SAT 100
[2024-12-15 18:18] LABS: Hematocrit 41.9 % (42.0-52.0); Hemoglobin 14.1 g/dL (14.0-18.0); Immature Granulocyte Percent A 0.3 % (0-0.5); Lymphocytes Absolute Auto 2.17 K/mm3 (0.9-3.2); Mean Corpuscular HGB Conc 33.7 g/dl (32-36); Mean Corpuscular Hemoglobin 31.9 pg (26-34); Mean Corpuscular Volume 94.8 fl (80-100); Nucleated Red Blood Cells Absolute Auto 0.000 K/mm3 (0.0-0.012); Nucleated Red Blood Cells Perc 0.0 % (0.0-0.2); Platelet Count Result 222 k/mm3 (150-375); Red Blood Count 4.42 M/mm3 (4.6-6.20); White Blood Count 6.1 K/mm3 (4.5-10.0)
--- NOTE | 2024-12-15 18:24 | ED.ABDPAIN ---
HPI - Abdominal Pain General Chief Complaint: Abdominal Pain Stated Complaint: ABD PAIN X1WK Time Seen by Provider: 12/15/24 18:02 History of Present Illness HPI narrative: Patient is a 59-year-old male who presents to the ER with complaints of abdominal pain and acute on chronic back pain. He reports his abdominal pain has been present for approximately 2 weeks. Patient reports his back pain is in his lower spine and sometimes since shooting pains down his right leg. He denies any saddle anesthesia, urinary incontinence, shortness of breath, or recent fevers. Patient endorses a history of GERD, degenerative disc disorder and high blood pressure. He reports his primary care provider referred him to the physical therapy which did not help relieve his symptoms. Related Data Allergies Allergy/AdvReac Type Severity Reaction Status Date / Time ibuprofen Allergy Other Verified 12/15/24 16:40 steroids AdvReac Intermediate Sweating Uncoded 10/01/23 15:24 Review of Systems Review of Systems: All systems reviewed & are unremarkable except as noted in HPI and below PMFSH Past Medical History Medical History Lumbosacral radiculopathy due to degenerative joint disease of spine Continuous tobacco abuse Coronary artery disease Bipolar disorder Schizophrenia CVA (cerebral vascular accident) Arthritis Surgical History Surgical History History of colonoscopy with polypectomy (09/2021) History of esophagogastroduodenoscopy (EGD) (09/2021) Status post bilateral foot surgery Multiple debridements of the soles of bilateral feet. History of tonsillectomy and adenoidectomy Family History Family History Mother Colon cancer Father Unknown family medical history Grandparent No problems noted. Social History Social History Social History: Patient has smoked up to 3 packs of cigarettes per day but cut back to 0.5 pack per day in 2020. Code status: Full code Surrogate decision maker: Elmira Young () Smoking packs per day: 0.5 Smoking cigarettes per day: 10.0 Years smoked: 37 Smoking pack-years: 18.50 Smoking status: Current every day smoker Tobacco type: cigarettes Second hand tobacco smoke exposure: Yes Alcohol intake: former Alcohol use details: He used to drink a 30 pack per day but quit in 2020. Substance use: current Substance use type: marijuana Other substance usage details: Former use of cocaine and amphetamines. He quit in 2010. Additional living arrangements comments: He is . 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 Gender identity (if verbalized by the patient): Male Spiritual care concerns: No Exam Narrative: GENERAL: Well appearing, well-nourished, non-toxic, in mild distress due to pain. HEAD: Normocephalic, atraumatic. NECK: Supple. No adenopathy, no masses. RESPIRATORY: Airway patent, respirations nonlabored. Clear to auscultation bilaterally, no rales, rhonchi, wheezing. CARDIOVASCULAR: Regular rate and rhythm without murmurs, rubs, or gallops. Peripheral pulses 2+ and equal bilaterally. ABDOMINAL: Soft, nontender, nondistended, no hepatosplenomegaly. Normoactive BS. MUSCULOSKELETAL: Moves all extremities. Strength/ROM intact without gross deformities. + pain with palpation to lower spine SKIN: Warm, dry, normal color. No rashes. NEURO: A&O X3. Speech clear. Cranial nerves II-XII intact. No ataxic movements. PSYCHIATRIC: Tearful Course Vital Signs Vital signs: Vital Signs Temperature 37.1 C 12/15/24 16:58 Pulse Rate 92 12/15/24 16:58 Respiratory Rate 18 12/15/24 16:58 Blood Pressure 172/94 H 12/15/24 16:58 Pulse Oximetry 100 12/15/24 16:58 Oxygen Delivery Room Air 12/15/24 16:58 Temperature 37.0 C 12/15/24 18:04 Pulse Rate 92 12/15/24 18:04 Respiratory Rate 20 12/15/24 18:04 Blood Pressure 178/88 H 12/15/24 18:04 Pulse Oximetry 100 12/15/24 18:04 Oxygen Delivery Room Air 12/15/24 18:04 MDM - Abdominal Pain MDM Narrative Medical decision making narrative: Patient is a 59-year-old male who presents to the ER with complaints of abdominal pain and acute on chronic back pain. He reports his abdominal pain has been present for approximately 2 weeks. Patient reports his back pain is in his lower spine and sometimes since shooting pains down his right leg. He denies any saddle anesthesia, urinary incontinence, shortness of breath, or recent fevers. Patient endorses a history of GERD, degenerative disc disorder and high blood pressure. He reports his primary care provider referred him to the physical therapy which did not help relieve his symptoms. Labs Ordered: CBC, CMP, UA, lipase Imaging Ordered: CT abdomen pelvis lumbar, chest x-ray Medications Ordered: Morphine 4 mg IV, 1 L normal saline IV bolus, Toradol 15 mg IV, prednisone 40 mg p.o., lidocaine patch Results: Patient's CT scan indicates There is right lower lobe atelectasis. No significant pleural or pericardial effusion. Heart size normal. The liver, spleen, pancreas, adrenal glands and kidneys are unremarkable. There are air-fluid levels in the small bowel of the left midabdomen, nonspecific. No definite obstruction. There is circumaortic left renal vein gallbladder is present. No significant vascular abnormality. No lymphadenopathy. No acute fracture of the lumbar spine. No evidence for spondylolysis or spondylolisthesis. There is mild dextrocurvature of the bar spine. There are small subcentimeter cysts of the left kidney. Normal appendix. Diagnosis: Abdominal pain, degenerative disc disorder Consults: Neurosurgery (outpatient), Dr. Jones Patient Education/Shared MDM: Results of lab work and imaging shared with patient. He endorses improvement of symptoms following medication administration. Patient strongly advised to follow-up with his PCP and neurosurgeon as soon as possible. He will be discharged home with a prescription for steroids, muscle relaxants and lidocaine patches. Strict return precautions provided. Patient verbalized understanding and is in agreement with plan. Vital signs stable at time of discharge. All questions answered. Differential Diagnosis Differential diagnosis: Likely abdominal pain, calculus of kidney and other (Degenerate disc disorder, lumbar radiculopathy, lumbar fracture) Lab Data Attestation: I reviewed the patient's lab results. 12/15/24 18:11 12/15/24 18:11 Labs: Lab Results 12/15/24 Range/Units 18:11 WBC 6.1 (4.5-10.0) K/mm3 RBC 4.42 L (4.6-6.20) M/mm3 Hgb 14.1 (14.0-18.0) g/dL Hct 41.9 L (42.0-52.0) % MCV 94.8 (80-100) fl MCH 31.9 (26-34) pg MCHC 33.7 (32-36) g/dl RDW 13.4 (11.5-14.5) % Plt Count 222 (150-375) k/mm3 MPV 9.1 (7.4-10.4) fl Immature Gran % (Auto) 0.3 (0-0.5) % Neut % (Auto) 56.8 (45.5-73.1) % Lymph % (Auto) 35.7 (18.3-44.2) % [place] % (Auto) 5.4 (2.6-8.5) % Eos % (Auto) 1.3 (0-4.4) % Baso % (Auto) 0.5 (0.2-1.2) % Lymph # (Auto) 2.17 (0.9-3.2) K/mm3 [place] # (Auto) 0.3 (0.1-0.6) K/mm3 Eos # (Auto) 0.1 (0-0.3) K/mm3 Baso # (Auto) 0.0 (0.0-0.1) K/mm3 Abs Immat Gran (auto) 0.02 (0.00-0.031) K/mm3 Absolute Neuts (auto) 3.5 (1.3-6.7) K/mm3 Absolute Nucleated RBC 0.000 (0.0-0.012) K/mm3 Nucleated RBC % 0.0 (0.0-0.2) % Sodium 142 (137-145) mmol/L Potassium 3.9 (3.4-5.0) mmol/L Chloride 108 H (98-107) mmol/L Carbon Dioxide 26 (22-30) mmol/L Anion Gap 8 (4-12) mmol/L BUN 17 (9-20) mg/dL Creatinine 0.85 (0.7-1.3) mg/dL Estim Creat Clear Calc 63 ml/min Estimated GFR > 60 (59 - ) Glucose 95 (65-110) mg/dL Calcium 9.3 (8.4-10.2) mg/dL Total Bilirubin 0.3 (0.2-1.3) mg/dL AST 23 (17-59) U/L ALT 15 (6-50) U/L Alkaline Phosphatase 60 (38-126) U/L Total Protein 7.4 (6.3-8.2) g/dL Albumin 4.6 (3.5-5.1) g/dL Lipase 91 (23-300) U/L Urine Color Yellow (Yellow) Urine Appearance Clear (Clear) Urine pH 5.5 (5.0-9.0) Ur Specific [place] 1.033 (1.001-1.035) Urine Protein Trace (Negative) mg/dL Urine Glucose (UA) Negative (Negative) mg/dL Urine Ketones Trace H (Negative) mg/dL Ur Blood (Man) Negative (Negative) Urine Nitrate Negative (Negative) Urine Bilirubin Negative (Negative) Urine Urobilinogen 1.0 (<2.0) mg/dL Leukocyte Esterase Rfl Negative (Negative) STEPHEN/UL Urine RBC 0-2 (0-2) /hpf Urine WBC 0-5 (0-3) /hpf Ur Squamous Epith Cells Occasional (Few) /hpf Urine Bacteria None seen /hpf Urine Casts 0-2 Imaging Data Attestation: I personally reviewed and interpreted this imaging study as follows: Radiologist's impression: ITS Impressions Chest X-Ray 12/15/24 18:53 IMPRESSION: 1: NO ACUTE CARDIOPULMONARY DISEASE. Miscellaneous CT Procedure 12/15/24 18:58 IMPRESSION: 1. No acute abnormality. Discharge Plan Discharge Clinical Impression: Low back pain, Sciatica, Degenerative disc disease, Abdominal pain, lower Patient Disposition: Home Condition: Stable Instructions: Antibiotic Form, Degenerative Disc Disease (ED) Additional Instructions: Please return to the ER with any worsening symptoms. Follow-up with primary care provider and Neurosurgery as soon as possible. Take all medications as prescribed, including regularly scheduled medications. You may take Tylenol, muscle relaxants, steroids and use lidocaine patches for pain relief. Patient Language: Algerian Prescriptions: New lidocaine 5 % adhesive patch,medicated 2 patch topical DAILY Qty: 30 0RF Rx Instructions: leave on most painful area for up to 12 hrs methylprednisolone [Medrol (Les)] 4 mg tablets,dose pack See Rx Instructions PO .COMPLEX Qty: 21 0RF Rx Instructions: for 6 days No Action naproxen 500 mg tablet,delayed release (DR/EC) 500 mg PO BID PRN (Reason: pain) 3 Days Qty: 6 0RF cyclobenzaprine 10 mg tablet 10 mg PO HS PRN (Reason: muscle spasm) Qty: 10 0RF methocarbamol 750 mg tablet 750 mg PO TID Qty: 21 0RF Follow-up/Referrals: Alber,JASON Dominguez [Primary Care Provider, Family Practice] Eloise Jones MD [Physician, Neurosurgery] Referral Note: neurosurgery Time of Disposition: 19:51
[2024-12-15 18:27] LABS: Alanine Aminotransferase 15 U/L (6-50); Albumin Level 4.6 g/dL (3.5-5.1); Alkaline Phosphatase 60 U/L (38-126); Anion Gap 8 mmol/L (4-12); Aspartate Amino Transferase 23 U/L (17-59); Bilirubin,Total 0.3 mg/dL (0.2-1.3); Blood Urea Nitrogen 17 mg/dL (9-20); Calcium 9.3 mg/dL (8.4-10.2); Carbon Dioxide 26 mmol/L (22-30); Chloride 108 mmol/L (98-107); Estimated CRCL calculation 63 ml/min; Estimated Glomerular Filt Rate > 60; Glucose 95 mg/dL (65-110); Lipase 91 U/L (23-300); Potassium 3.9 mmol/L (3.4-5.0); Sodium 142 mmol/L (137-145); Total Protein 7.4 g/dL (6.3-8.2)
[2024-12-15 18:30] LABS: Add Urine Microscopic? YES; Appearance Urine Clear (Clear); Glucose Urine UA Negative (Negative); Leukocyte Esterase Ur Negative LEU/UL (Negative); Nitrate Urine Negative (Negative); Non Pathogenic Casts 0-2; Specific Grav Ur 1.033 (1.001-1.035)
[2024-12-15] MEDS: MORPHINE SULFATE (*CRX) 4 MG/ML INJ IV PUSH (18:56)
[2024-12-15] MEDS: SODIUM CHLORIDE 0.9% IV 1,000 ML 999 ML IV CONT (18:57)
[2024-12-15] MEDS: LIDOCAINE 5% PATCH 1 PATCH TRANSDERM (19:59)
[2024-12-15] MEDS: KETOROLAC 15 MG/ML VIAL (*BKC) IV PUSH (19:59)
[2024-12-15 20:11] VITALS: BP 159/70; PULSE 74; RESP 14; O2SAT 100
== END 2024-12-15 20:08 | disposition home or self-care (01) ==
PROVIDERS: Emergency Medicine; Emergency Provider Registered Nurse; PCP Physician Assistant
DX: R10.30 Lower abdominal pain, unspecified (principal); M54.41 Lumbago with sciatica, right side; I25.10 Atherosclerotic heart disease of native coronary artery without angina pectoris; I10 Essential (primary) hypertension; M19.90 Unspecified osteoarthritis, unspecified site; K21.9 Gastro-esophageal reflux disease without esophagitis; Z86.73 Personal history of transient ischemic attack (TIA), and cerebral infarction without residual deficits; Z86.0100 Personal history of colon polyps, unspecified; F17.210 Nicotine dependence, cigarettes, uncomplicated
CPT/HCPCS: 36415; 71046; 72132; 74177; 80053; 81001; 83690; 85025; 96361; 96374; 96375; 99284; A9270; J1885; J2270; J7030; J7512; Q9967

== ENCOUNTER 2025-01-03 08:44 | Outpatient (CLI) | payer OTHER, SELFPAY ==
--- NOTE | ~2025-01-03 | MR_ITS ---
EXAMINATION: MR lumbar spine wo con DATE: 01/03/2025 09:34 INDICATION: Central stenosis of spinal canal. TECHNIQUE: Magnetic resonance imaging (MRI) of the lumbar spine was performed without intravenous contrast. Sequences included sagittal T2-weighted FSE, sagittal T2-weighted FS FSE, sagittal T1-weighted FSE, and axial T2-weighted FSE. COMPARISON: None FINDINGS: There is 5 degrees dextrocurvature of the lumbar spine. Vertebral body heights are normal. There is mildly decreased disc height at L4-L5. The distal spinal cord signal intensity is normal. The conus medullaris is at L1. The following disc levels are specifically discussed: L1-L2: The disc does not extend beyond the endplate margin. There is mild bilateral facet joint osteoarthritis. There is no neural foraminal stenosis. There is no central canal stenosis. L2-L3: The disc does not extend beyond the endplate margin. There is moderate bilateral facet joint osteoarthritis. There is no neural foraminal stenosis. There is no central canal stenosis. L3-L4: The disc does not extend beyond the endplate margin. There is moderate right and mild left facet joint osteoarthritis. There is no neural foraminal stenosis. There is no central canal stenosis. L4-L5: The disc is bulging and has an annular fissure. There is severe bilateral facet joint osteoarthritis. There is mild bilateral neural foraminal stenosis. There is mild central canal stenosis. L5-S1: The disc does not extend beyond the endplate margin. There is severe bilateral facet joint osteoarthritis. There is no neural foraminal stenosis. There is no central canal stenosis. IMPRESSION: 1. Mild lumbar spondylosis. Reviewed, dictated and finalized at location E. IMPRESSION: 1. Mild lumbar spondylosis.
--- OUTSIDE RECORDS SUMMARY | 2025-01-03 09:15 | XMS_ITS | Clinical Summary ---
Author Organization [facility] Address [address] [facility] [place] [address] Care Team Providers Care Descriptive Catalog Librarian Name Role Phone Carmella Campo PA-C Primary Care Provider Source Comments [facility],non-owned Affiliates and Associated Physician Practices is amultiple site organization consisting of ambulatory clinics and hospital sitesin [place], [place] and [place]. This disclosure is being madepursuant to the Care Everywhere program and may not contain all information available regarding this patient. Last updated 17.[facility] Allergies Active Allergy Reactions Criticality [...] patient's age to complete this topic Insurance [facility] Care Teams Descriptive Catalog Librarian Relationship Specialty Start Date End Date Carmella Campo PA-C [address] [place] [phone] PCP - General 10/03/19
--- OUTSIDE RECORDS SUMMARY | 2025-01-03 09:17 | XMS_ITS | Patient Health Record ---
Author Organization [facility] Address [address] [place] [address] Care Team Providers Care Senior Android Software Engineer Name Role Phone MandoElina erazo Primary Care Provider Sudhir Demarco Unavailable [phone] Allergies No Known Allergies Reason For Referral No Information Medications Medication SIG (Take, Route, Fr equency, Duration) Notes Start Date End Date Status Sertraline HCl 50 MG 1 tablet Orally Onc e a day; Duration: 30 days 12/30/2024 Active Prazosin HCl 1 MG 1 capsule at bedtime Orally Once a day; Duration: 30 days 12/30/2024 Ac tive ARIPiprazole 5 MG 1 tablet Orally Once a day; Duration: 30 days 12/30/2024 Active Social History Tobacco Use: Social History Observation Description Date Details (start date - stop date) Current Smoker NA - NA Tobacco Control (Standard) Question Answer Notes Tobacco use: Current every day smoker Additional Findings: Tobacco user Moderate cigar ette smoker (10-19 cigs/day) Problems Problem Type SNOMED Code ICD Code Onset Dates Problem Status W/U Status Risk Notes Problem Information temporarily unavailable PTSD (post-traumatic stress disorder) (F43.10) Active confirmed Problem Information temporarily unavailable MDD (major depressive disorder) (F32.9) Active confirmed Encounters Encounter Location Date Provider Diagnosis [facility] [address], [place] [address] 12/30/2024 Elina Rosado MDD (major depressiv e disorder) F32.9 and PTSD (post-traumatic stress disorder) F43.10 [facility] [address], [place] [address] 12/30/2024 Elina Rosado [facility] [address] [place] [address] 12/30/2024 Sudhir Dav PTSD (post-traumatic stress disorder) F43.10 and MDD (major depressive disorder) F32.9 Assessments Encounter Date Diagnosis (ICD Code) Assessment Notes Treatment Notes Treatment Clinical Notes Section Notes 12/30/2024 PTSD (post-traumatic stress disorder) (ICD-10 - F43.10) 12/30/2024 MDD (major depressive disorder) (ICD-10 - F32.9) 12/30/2024 PTSD (post-traumatic stress disorder) (ICD-10 - F43.10) Start prazosin. May self-administer medications or be administered own oral medications per [facility] protocols. Provided informed consent with understanding of side effects, adverse effects, risks and benefits as well as alternative treatments as previously discussed and with the above recommended medications & other aspects of the treatment program. Agrees to return sooner if symptoms worsen or suicidal or homicidal ideations occur. 12/30/2024 MDD (major depressive disorder) (ICD-10 - F32.9) Start sertraline. Plan Of Treatment No Information Insurance Providers Payer Name Payer Address Payer Phone Subscriber Number Group Number Insured Name Patient Relationship to Insured Coverage Start Date Coverage End Date [employer] [address] [place] [phone] [id number] Juan Young Self - patient is the insured 5 [employer] [address] [place] [address] [id number] Juan Young Self - patient is the insured 5 Medical (General) History Medical History History ICD Code MDD ADHD Surgical History Surgery Date(Month/Year) tonsillectomy and adenoidectomy Hospitalization History Reason Date(Month/Year) stent placement burn
--- OUTSIDE RECORDS SUMMARY | 2025-01-03 09:17 | XMS_ITS | Clinical Summary ---
Author Organization [facility] Address [address] [place] [id number] Care Team Providers Care Podiatric Surgeon Name Role Phone No, Physician Primary Care Provider [phone] Allergies No known active allergies Medications lidocaine (LIDODERM) 5 % Place 1 patch on the skin daily Remove & discard patch within 12 hours or as directed by . 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
== END 2025-01-03 08:45 | disposition home or self-care (01) ==
PROVIDERS: PCP Physician Assistant; Visit Provider Physician Assistant
DX: M48.00 Spinal stenosis, site unspecified (principal); M47.896 Other spondylosis, lumbar region
CPT/HCPCS: 72148

== ENCOUNTER 2025-01-22 17:47 | Emergency (ER) | payer OTHER, SELFPAY ==
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
--- NOTE | ~2025-01-22 | XR_ITS ---
EXAMINATION: XR hand RT min 3V DATE: 01/22/2025 20:40 INDICATION: Right hand pain at the dorsal second metacarpophalangeal joint. TECHNIQUE: Posteroanterior, oblique and lateral views of the right hand were obtained. COMPARISON: None. FINDINGS: Bone alignment is normal. Suggestion of an old fracture deformity at the tuft of the right fourth digit. No acute fracture. Polyarticular osteoarthritis, moderate severity at the triscaphe joint and mild at the wrist, midcarpal, first carpometacarpal and multiple interphalangeal joints with distal predominance. Small erosion at the medial head of the first metacarpal. Periarticular soft tissue swelling about the second and third and to lesser degree fourth proximal interphalangeal joints. There is clubbing of the digits. IMPRESSION: 1. Mild to moderate polyarticular osteoarthritis at the right hand. 2. Nonspecific small periarticular erosion at the head of the first metacarpal suggesting possible inflammatory arthritis such as gout, rheumatoid, psoriatic or reactive arthritis. 3. Clubbing of the digits and periarticular soft tissue at the second, third and to lesser degree fourth proximal interphalangeal joints. Reviewed, dictated and finalized at location A. SERVICER IMPRESSION: 1. Mild to moderate polyarticular osteoarthritis at the right hand. 2. Nonspecific small periarticular erosion at the head of the first metacarpal suggesting possible inflammatory arthritis such as gout, rheumatoid, psoriatic or reactive arthritis. 3. Clubbing of the digits and periarticular soft tissue at the second, third an d to lesser degree fourth proximal interphalangeal joints.
--- OUTSIDE RECORDS SUMMARY | 2025-01-22 17:50 | XMS_ITS | Clinical Summary ---
Author Organization [facility] Address [address] [place] [id number] Care Team Providers Care Cso Name Role Phone Carmella Campo PA-C Primary Care Provider [phone] Allergies Active Allergy Reactions Criticality Noted Date [...] Comments Blood Pressure 145/79 05/27/2020 7:22 PM HOG STICKER Pulse 70 05/27/2020 7:22 PM HOG STICKER Temperature 36.6 C (97.8 F) 05/27/2020 5:14 PM HOG STICKER Respiratory Rate 16 05/27/2020 7:22 PM HOG STICKER Oxygen Saturation 100% 05/27/2020 7:22 PM HOG STICKER Inhaled Oxygen Concentration - - Weight 60.8 kg (134 lb) 05/27/2020 5:14 PM HOG STICKER Height 160 cm (5' 3) 05/27/2020 5:14 PM HOG STICKER Body Mass Index 23.74 05/27/2020 5:14 PM HOG STICKER Plan of Treatment Health Maintenance Due Date Last Done Comments Colorectal Cancer Screening Colonoscopy (10 Years) 1965 Annual Physical 1968 Hepatitis C 09/16/1983 DTaP, Tdap and Td Vaccines ( 1 - Tdap) 1984 Pneumococcal Vaccine: 50+ Ye ars (1 of 2 - PCV) 1984 Zoster Vaccines (1 of 2) 09/16/2015 COVID-19 Vaccine (1 - 2024-2 6 season) 2024 Influenza Adult (#1) 2024 Hepatitis A Vaccines Aged Out No long er eligible based on patient's age to complete this topic Meningococcal B Vaccine Aged Out No l onger eligible based on patient's age to complete this topic Meningococcal Vaccine Aged Out No reynaldo suzan eligible based on patient's age to complete this topic RSV Immunizations Under 20 Months Aged Out No longer eligible based on patient's age to complete this topic Insurance [employer] Care Teams Cso Relationship Specialty Start Date End Date Carmella Campo PA-C PCP - General NURSE PRACTITIONER 05/27/20
--- OUTSIDE RECORDS SUMMARY | 2025-01-22 17:50 | XMS_ITS | Clinical Summary ---
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
[2025-01-22 17:54] VITALS: BP 154/77; PULSE 94; RESP 16; TEMP 37.2; O2SAT 98
--- NOTE | 2025-01-22 20:24 | ED_ITS ---
HPI - Extremity Problem General Chief complaint: Extremity Problem,Nontraumatic Stated complaint: R hand swelling Time Seen by Provider: 01/22/25 19:54 History of Present Illness HPI Narrative: 59-year-old male with history of arthritis presenting to the emergency department today with hand pain. Patient states he was helping his move yesterday was having some pain in his right hand specifically around the 2nd digit especially when he tries to flex it down and make a fist. Minor swelling around the proximal 2nd digit. Did not strike it on anything or injury. Has good extension but feels a stretch whenever he extensive Craig. Denies any paresthesias or weakness. No sensation loss or temperature changes. History of arthritis but did not take anything for symptoms prior to arrival. Thinks it could be injured or broken. Related Data Allergies Allergy/AdvReac Type Severity Reaction Status Date / Time ibuprofen Allergy Other Verified 01/18/25 12:54 steroids AdvReac Intermediate Sweating Uncoded 01/18/25 12:54 Review of Systems Review of Systems: As reviewed above in HPI [facility] Past Medical History Medical History Lumbosacral radiculopathy due to degenerative joint disease of spine Continuous tobacco abuse Coronary artery disease Bipolar disorder Schizophrenia CVA (cerebral vascular accident) Arthritis Surgical History Surgical History History of colonoscopy with polypectomy (09/2021) History of esophagogastroduodenoscopy (EGD) (09/2021) Status post bilateral foot surgery Multiple debridements of the soles of bilateral feet. History of tonsillectomy and adenoidectomy Family History Family History Mother Colon cancer Father Unknown family medical history Grandparent No problems noted. Social History Social History Social History: Patient has smoked up to 3 packs of cigarettes per day but cut back to 0.5 pack per day in 2020. Code status: Full code Surrogate decision maker: Elmira Young () Smoking packs per day: 0.5 Smoking cigarettes per day: 10.0 Years smoked: 37 Smoking pack-years: 18.50 Smoking status: Current every day smoker Tobacco type: cigarettes Second hand tobacco smoke exposure: Yes Alcohol intake: former Alcohol use details: He used to drink a 30 pack per day but quit in 2020. Substance use: current Substance use type: marijuana Other substance usage details: Former use of cocaine and amphetamines. He quit in 2010. Additional living arrangements comments: He is . 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 Gender identity (if verbalized by the patient): Male Spiritual care concerns: No Exam Narrative: GENERAL: [Well-appearing, well-nourished, and in no acute distress.] HEAD: [Normocephalic, atraumatic.] EYES: [PERRLA and EOMI.] ENT: Nares clear, no rhinorrhea or epistaxis. Mucous membranes moist. NECK: Supple. CHEST: [Clear to auscultation. No respiratory distress.] HEART: [Regular rate and rhythm]. No murmur heard. [Normal peripheral pulses.] ABDOMEN: [Soft, nondistended], [nontender], [No rigidity or guarding] EXTREMITIES: Minor swelling and redness on the dorsum of the 2nd MCP joint. Flexion and extension are full but elicits some pain with full range. No circumferential swelling. No tenderness to the D IP or PIP joint. Cap refill intact in each digit. Strong symmetric pulses. No paresthesias or neuropathy. No weakness. SKIN: Warm, dry, no rash. NEURO: [No focal deficits]. Alert and oriented [x3.] PSYCH: [Normal mood and affect.] Course Vital Signs Vital signs: Vital Signs Temperature 37.2 C 01/22/25 17:54 Pulse Rate 94 01/22/25 17:54 Respiratory Rate 16 01/22/25 17:54 Blood Pressure 154/77 H 01/22/25 17:54 Pulse Oximetry 98 01/22/25 17:54 Temperature 37.2 C 01/22/25 17:54 Pulse Rate 60 01/22/25 22:01 Respiratory Rate 14 01/22/25 22:01 Blood Pressure 129/91 H 01/22/25 22:01 Pulse Oximetry 99 01/22/25 22:01 MDM - Extremity (Nontraumatic) MDM Narrative Medical decision making narrative: 59-year-old male with history of arthritis presenting to the emergency department today with hand pain. Patient states he was helping his move yesterday was having some pain in his right hand specifically around the 2nd digit especially when he tries to flex it down and make a fist. Minor swelling around the proximal 2nd digit. Did not strike it on anything or injury. Has good extension but feels a stretch whenever he extensive Craig. Denies any paresthesias or weakness. No sensation loss or temperature changes. History of arthritis but did not take anything for symptoms prior to arrival. Thinks it could be injured or broken. Minor swelling and redness on the dorsum of the 2nd MCP joint. Flexion and extension are full but elicits some pain with full range. No circumferential swelling. No tenderness to the D IP or PIP joint. Cap refill intact in each digit. Strong symmetric pulses. No paresthesias or neuropathy. No weakness. Hemodynamically stable and symptoms consistent with monoarticular arthropathy versus arthritis. Low suspicion fracture or dislocation. X-rays obtained and he was given Tylenol and Toradol and discharged after imaging. X-ray reviewed does not show any obvious osseous abnormalities fractures or dislocations. Patient felt better after pain control his blood pressure improved. Safe for discharge with regular PCP follow-up. Discharge Plan Discharge Clinical Impression: Arthritis pain Patient Disposition: Home Condition: Stable Instructions: Antibiotic Form, Arthritis (ED) Additional Instructions: X-ray showed no broken bones or dislocations. Symptoms consistent with a rthritis exacerbation. Take Tylenol and ibuprofen every 6-8 hours for pain control. Return with any emergencies. Follow-up with regular primary care provider. Patient Language: Bermudian Prescriptions: No Action naproxen 500 mg tablet,delayed release (DR/EC) 500 mg PO BID PRN (Reason: pain) 3 Days Qty: 6 0RF cyclobenzaprine 10 mg tablet 10 mg PO HS PRN (Reason: muscle spasm) Qty: 10 0RF lidocaine 5 % adhesive patch,medicated 2 patch topical DAILY Qty: 30 0RF Rx Instructions: leave on most painful area for up to 12 hrs Follow-up/Referrals: Alber,JASON Dominguez [Primary Care Provider, [facility]] Time of Disposition: 22:52
[2025-01-22 20:27] VITALS: BP 118/76; PULSE 71; RESP 16; O2SAT 100
[2025-01-22] MEDS: KETOROLAC 10 MG TABLET PO (20:31)
[2025-01-22] MEDS: ACETAMINOPHEN 500 MG TABLET 1000 MG PO (20:31)
[2025-01-22 21:01] VITALS: BP 125/82; O2SAT 100
[2025-01-22 22:01] VITALS: BP 129/91; PULSE 60; RESP 14; O2SAT 99
== END 2025-01-22 23:00 | disposition home or self-care (01) ==
PROVIDERS: Emergency Provider Student in an Organized Health Care Education/Training Program; PCP Physician Assistant
DX: M19.041 Primary osteoarthritis, right hand (principal); I25.10 Atherosclerotic heart disease of native coronary artery without angina pectoris; Z86.73 Personal history of transient ischemic attack (TIA), and cerebral infarction without residual deficits; F17.210 Nicotine dependence, cigarettes, uncomplicated
CPT/HCPCS: 73130; 99283; A9270